=== PATIENT | male | born 1930 | race Hispanic/Latino ===

== ENCOUNTER 2017-07-13 18:03 | Inpatient (IN) | payer MEDICARE, MEDICAID ==
[2017-07-13 18:13] VITALS: BMI 21.2
[2017-07-13] MEDS ORDERED: Sodium Chloride 0.9% 1,000 ML IV STA (18:49)
--- NOTE | 2017-07-13 18:50 | ED PDOC ---
Arrival/HPI - General Historian: Patient - History of Present Illness Time/Duration: Other (see hpi) Context: Home - General Chief Complaint: Altered Mental Status Time Seen by Provider: 07/13/17 18:37 - History of Present Illness Narrative History of Present Illness (Text): 07/13/17 18:50 Morenita Boone is a 86 year old male, with a past medical history of hypertension, vertigo, and cad, presents to the emergency department via EMS. According to EMS, patient was found on the floor with AMS. (Judy Rodriguez) Past Medical History - Provider Review Nursing Documentation Reviewed: Yes - Infectious Disease Hx of Infectious Diseases: None - Tetanus Immunization Tetanus Immunization: Unknown - Cardiac Hx Cardiac Disorders: Yes Hx Hypertension: Yes - Pulmonary Hx Respiratory Disorders: Yes Hx Pneumonia: Yes - Neurological Hx Neurological Disorder: Yes (VERTIGO) Hx Dizziness: Yes - HEENT Hx HEENT Disorder: No - Renal Hx Renal Disorder: Yes Hx Kidney Stones: Yes - Endocrine/Metabolic Hx Endocrine Disorders: No - Hematological/Oncological Hx Blood Disorders: No - Integumentary Hx Dermatological Disorder: No - Musculoskeletal/Rheumatological Hx Musculoskeletal Disorders: Yes Hx Falls: Yes - Gastrointestinal Hx Gastrointestinal Disorders: Yes Hx Gastroesophageal Reflux: Yes - Genitourinary/Gynecological Hx Genitourinary Disorders: No Hx Reproductive Disorders: No - Psychiatric Hx Psychophysiologic Disorder: No Hx Depression: No Hx Emotional Abuse: No Hx Physical Abuse: No Hx Substance Use: No - Past Surgical History Past Surgical History: No Previous - Suicidal Assessment Feels Threatened In Home Enviroment: No Family/Social History - Physician Review Nursing Documentation Reviewed: Yes Family/Social History: Other (noncontributory) Smoking Status: Former Smoker Hx Alcohol Use: No Hx Substance Use: No Hx Substance Use Treatment: No Allergies/Home Meds Allergies/Adverse Reactions: Allergies No Known Allergies Allergy (Verified 07/13/17 18:10) Home Medications: Home Meds Medication Instructions Recorded Confirmed Unobtainable 12/21/15 07/13/17 Review of Systems - Review of Systems Systems not reviewed;Unavailable: Other (see hpi) Physical Exam - Physical Exam Physical Exam Limitations: Altered Mental Status Temperature: Afebrile Blood Pressure: Normal Pulse: Regular Respiratory Rate: Normal Appearance: Positive for: Unkept Pain Distress: None Mental Status: Positive for: Confused - Systems Exam Head: Present: Atraumatic, Normocephalic Pupils: Present: PERRL Extroacular Muscles: Present: EOMI Conjunctiva: Present: Normal Mouth: Present: Moist Mucous Membranes Neck: Present: Normal Range of Motion Respiratory/Chest: Present: Clear to Auscultation, Good Air Exchange. No: Respiratory Distress, Accessory Muscle Use, Wheezes, Retracting, Rhonchi Cardiovascular: Present: Regular Rate and Rhythm, Normal S1, S2. No: Murmurs Abdomen: Present: Normal Bowel Sounds. No: Tenderness, Distention, Peritoneal Signs, Rebound, Guarding Upper Extremity: Present: Normal Inspection, Normal ROM, NORMAL PULSES, Neurovascularly Intact, Capillary Refill < 2s. No: Cyanosis, Edema Lower Extremity: Present: Normal Inspection, Normal ROM. No: Edema Neurological: Present: CN II-XII Intact Skin: Present: Warm, Dry, Normal Color. No: Rashes Psychiatric: Present: Other (AMS) Vital Signs Temp Pulse Resp BP Pulse Ox 07/13/17 21:00 84 20 165/83 H 98 07/13/17 20:05 97.9 F 07/13/17 19:15 91 H 19 147/90 98 Medical Decision Making Re-evaluation Time: 21:02 Reassessment Condition: Re-examined, Improving,but remains with symptoms - Lab Interpretations I have reviewed the lab results: Yes Interpretation: No clinic. lab abnormalty - EKG Interpretation Interpreted by ED Physician: Yes (NSR @ 100bpm. No ST changes) Type: 12 lead EKG Comparison: No previous EKG avail. ED Course and Treatment: 07/13/17 20:58 I spoke with Mr. Isrrael Woody, who is a friend of the patient. He said he talked to patient about 2 weeks ago. He said patient was alert and oriented x 3 at that time. He did not know patient was in ED. He does not know if patient had recent illness or psychiatric problems. He denies recent trauma, or alcohol abuse. Dr. Hanks spoke with Dr. Ovalle regarding patient AMS. Patient will be admitted for further labs, possible further imaging, and monitor current condition (Judy Rodriguez) 07/13/17 23:04 Patient presents via ambulance. Reportedly patient found "laying on ground by neighbor". No family or friends are present with patient upon arrival to the ED. Patient is confused, does not answer questions correctly. No obvious signs of acute trauma. He will move all four extremities. There is NO LAST TIME KNOWN WELL. Spoke with listed Emergency Contact, states he personally has not spoken to patient in 2 weeks, although he states patient is typically alert and conversive. BP is stable. No respiratory distress noted. Afebrile. Lactate unremarkable. Ddx cva, seizure, syncope, arrhythmia, sepsis, metabolic disorder, endocrine disorder. NOT A TPA CANDIDATE NO KNOWN LAST TIME WELL. CT head reviewed. Please note troponin was initially reported as positive. Initial consultations and orders were performed with consideration that this value was positive. At 22:50 it was noted that troponin was adjusted to a normal value. Lab was called to clarify. Nursing slot shift supervisor notified. Patient on exam is in no respiratory distress, does not express discomfort. Admitting physician Dr. Ovalle (covering for hospitalist) notified. (Joslyn Hanks) - Lab Interpretations Lab Results: 07/13/17 19:10 07/13/17 19:10 Lab Results 07/13/17 20:46: Lactate Dehydrogenase 429, Total Creatine Kinase 57, Troponin I < 0.01 07/13/17 20:29: Urine Color Yellow, Urine Appearance Clear, Urine pH 6.0, Ur Specific [place] >= 1.030, Urine Protein Trace H, Urine Glucose (UA) Negative, Urine Ketones 40 H, Urine Blood Trace-intact H, Urine Nitrate Negative, Urine Bilirubin Small H, Urine Urobilinogen 1.0 H, Ur Leukocyte Esterase Negative, Urine RBC 1 - 3, Urine WBC 2 - 5, Ur Epithelial Cells 4 - 5, Urine Bacteria Few 07/13/17 20:27: Urine Opiates Screen Negative, Urine Methadone Screen Negative, Ur Barbiturates Screen Negative, Ur Phencyclidine Scrn Negative, Ur Amphetamines Screen Negative, U Benzodiazepines Scrn Negative, U Oth Cocaine Metabols Negative, U Cannabinoids Screen Negative 07/13/17 20:27: pO2 36, VBG pH 7.35, VBG pCO2 51.0, VBG HCO3 28.2 H, VBG Total CO2 29.8 H, VBG O2 Sat (Calc) 69.8 H, VBG Base Excess 1.7, VBG Potassium 4.8, Glucose 107, Lactate 1.4, FiO2 21.0, Sodium 137.0, Chloride 102.0, Venous Blood Potassium 4.8 07/13/17 19:10: Salicylates < 1 L, Acetaminophen < 10.0 L 07/13/17 19:10: Alcohol, Quantitative < 10 07/13/17 19:10: Sodium 144, Potassium 4.2, Chloride 101, Carbon Dioxide 26, Anion Gap 21 H, BUN 30 H, Creatinine 0.9, Est GFR ( Amer) > 60, Est GFR ( Non-Af Amer) > 60, Random Glucose 101, Calcium 9.7, Phosphorus 3.7, Magnesium 2.6 H, Total Bilirubin 1.1, AST 53, ALT 38, Alkaline Phosphatase 131 H, Total Protein 7.2, Albumin 4.1, Globulin 3.1, Albumin/Globulin Ratio 1.3 07/13/17 19:10: PT 12.7 H, INR 1.11 H, APTT 32.8 07/13/17 19:10: WBC 10.5 D, RBC 5.72, Hgb 17.2, Hct 49.8, MCV 87.1, MCH 30.1, MCHC 34.5, RDW 12.6, Plt Count 308, MPV 10.3, Gran % 74.4 H, Lymph % (Auto) 12.8 L, [place] % (Auto) 11.2 H, Eos % (Auto) 1.4 L, Baso % (Auto) 0.2, Gran # 7.81 H, Lymph # (Auto) 1.3, [place] # (Auto) 1.2 H, Eos # (Auto) 0.2, Baso # (Auto ) 0.02 - RAD Interpretation Narrative RAD Interpretations (Text): 07/13/17 21:03 FINDINGS: Brain: There is dilatation of sulci gyri and ventricles. There is no midline shift. There is decreased attenuation in periventricular white matter. There is a new geographic area of decreased attenuation in the right frontal lobe. 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 There are no focal masses. There are no focal hemorrhages. Buckner-white differentiation is visualized. Ventricles: See above Bones/joints: Bones: Cranial vault is intact. Soft tissues: unremarkable Sinuses: There is no acute sinusitis. Mastoid air cells: Ears and mastoids: Middle ears and mastoids are unremarkable. Orbits: Orbital contents are unremarkable. IMPRESSION: Atrophy and small vessel disease, no bleed; age indeterminate right frontal ischemic change new since the prior study 07/13/17 21:03 CXR: NAD (RodriguezJudy P) Radiology Orders: 07/13/17 18:47 CHEST ONE VIEW [RAD] Stat 07/13/17 18:49 HEAD W/O CONTRAST [CT] Stat - Medication Orders Current Medication Orders: Atorvastatin Calcium (Lipitor) 10 mg PO DIN KATHERINE Heparin Sodium/Sodium Chloride (Heparin 60937 Units/250ml 1/2 Normal Saline) 25 ,000 units in 250 mls @ 7.62 mls/hr IV .Q24H KATHERINE; 12 UNITS/KG/HR PRN Reason: Protocol Sodium Chloride (Sodium Chloride 0.9%) 1,000 mls @ 75 mls/hr IV .[id number] KATHERINE Metoprolol Tartrate (Lopressor) 12.5 mg PO BID KATHERINE Pantoprazole Sodium (Protonix Ec Tab) 40 mg PO 0600 KATHERINE Discontinued Medications Aspirin (Aspirin Supp) 300 mg RC STAT STA Stop: 07/13/17 21:38 Last Admin: 07/13/17 21:41 Dose: 300 mg Sodium Chloride (Sodium Chloride 0.9%) 1,000 mls @ 999 mls/hr IV .Q1H1M STA Stop: 07/13/17 19:49 Last Admin: 07/13/17 19:25 Dose: 999 mls/hr eMAR Start Stop Document 07/13/17 19:25 CNR (Rec: 07/13/17 19:25 CNR [id number]) Intravenous Solution Start Date 07/13/17 Start Time 19:25 Ceftriaxone Sodium (Rocephin 1 Gram Ivpb) 1 gm in 100 mls @ 200 mls/hr IVPB ONCE STA PRN Reason: Protocol Stop: 07/13/17 21:21 Last Admin: 07/13/17 20:57 Dose: 200 mls/hr eMAR Start Stop Document 07/13/17 20:57 CNR (Rec: 07/13/17 20:59 CNR [id number]) Intravenous Solution Start Date 07/13/17 Start Time 20:58 End Date 07/13/17 End time 21:28 Total Infusion Time 30 Disposition/Present on Arrival - Present on Arrival Any Indicators Present on Arrival: No History of DVT/PE: No History of Uncontrolled Diabetes: No Urinary Catheter: No History of Decub. Ulcer: No History Surgical Site Infection Following: None - Disposition Have Diagnosis and Disposition been Completed?: Yes Disposition Time: 21:03 Patient Plan: Admission - Disposition Diagnosis: Altered mental status Disposition: HOSPITALIZED Patient Problems: Current Active Problems Problem Status Onset Altered mental status Acute Condition: STABLE
[2017-07-13 19:21] LABS: BASO # 0.02 K/mm3 (0.0-2.0); BASO % 0.2 % (0.0-3.0); EOS # 0.2 (0.0-0.7); EOS % 1.4 % (1.5-5.0); GRAN # 7.81 (1.4-6.5); GRAN % 74.4 % (50.0-68.0); HEMOGLOBIN 17.2 g/dL (14.0-18.0); LYMPH # 1.3 (1.2-3.4); LYMPH % 12.8 % (22.0-35.0); MEAN CELL VOLUME 87.1 fl (80.0-105.0); MEAN CORPUSCULAR HEMOGLOBIN 30.1 pg (25.0-35.0); MEAN CORPUSCULAR HGB CONC 34.5 g/dl (31.0-37.0); MEAN PLATELET VOLUME 10.3 fl (7.0-11.0); MONO # 1.2 (0.1-0.6); MONO % 11.2 % (1.0-6.0); RBC 5.72 10^6/uL (3.5-6.1); RED CELL DISTRIBUTION WIDTH 12.6 % (11.5-14.5); WHITE BLOOD COUNT 10.5 10^3/ul (4.5-11.0)
[2017-07-13 19:33] LABS: ACETAMINOPHEN < 10.0 ug/ml (10.0-20.0); SALICYLATE < 1 mg/dL (2.0-20.0)
[2017-07-13 19:34] LABS: ALB/GLOB RATIO 1.3 (1.1-1.8); ALBUMIN 4.1 g/dL (3.0-4.8); ALT/SGPT 38 U/L (7-56); AST/SGOT 53 U/L (17-59); BLOOD UREA NITROGEN 30 mg/dL (7-21); CALCIUM 9.7 mg/dL (8.4-10.5); GFR AFRICAN-AMERICAN > 60; GFR NON-AFRICAN AMERICAN > 60; INR 1.11 (0.93-1.08); PARTIAL THROMBOPLASTIN TIME 32.8 Seconds (25.1-36.5); PROTHROMBIN TIME 12.7 SECONDS (9.4-12.5)
--- NOTE | 2017-07-13 20:04 | CT ---
EXAM: CT Head Without Intravenous Contrast EXAM DATE/TIME: 07/13/2017 6:49 PM CLINICAL HISTORY: 86 years old, male; Signs and symptoms; Altered mental status/memory loss; Additional info: AMS TECHNIQUE: Axial computed tomography images of the head/brain without intravenous contrast. All CT scans at this facility use one or more dose reduction techniques, viz.: automated exposure control; ma/kV adjustment per patient size (including targeted exams where dose is matched to indication; i.e. head); or iterative reconstruction technique. Coronal and sagittal reformatted images were created and reviewed. COMPARISON: CT - HEAD W/O CONTRAST 2015-12-21 16:18 FINDINGS: Brain: There is dilatation of sulci gyri and ventricles. There is no midline shift. There is decreased attenuation in periventricular white matter. There is a new geographic area of decreased attenuation in the right frontal lobe. 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 There are no focal masses. There are no focal hemorrhages. Buckner-white differentiation is visualized. Ventricles: See above Bones/joints: Bones: Cranial vault is intact. Soft tissues: unremarkable Sinuses: There is no acute sinusitis. Mastoid air cells: Ears and mastoids: Middle ears and mastoids are unremarkable. Orbits: Orbital contents are unremarkable. IMPRESSION: Atrophy and small vessel disease, no bleed; age indeterminate right frontal ischemic change new since the prior study
[2017-07-13 20:33] LABS: VENOUS BLOOD GAS BASE EXCESS 1.7 mmol/L (0.0-2.0); VENOUS BLOOD GAS PO2 36 mm/Hg (30-55); VENOUS BLOOD PH 7.35 (7.32-7.43)
[2017-07-13 20:37] LABS: URINE BILIRUBIN SMALL (NEGATIVE); URINE BLOOD TRACE-INTACT (NEGATIVE); URINE GLUCOSE (UA) NEGATIVE (NEGATIVE); URINE LEUKOCYTE ESTERASE NEGATIVE Leu/uL (NEGATIVE); URINE PROTEIN TRACE mg/dL (<30 mg/dL)
[2017-07-13 20:49] LABS: URINE APPEARANCE CLEAR (CLEAR); URINE COLOR YELLOW (YELLOW)
[2017-07-13 20:51] LABS: URINE BACTERIA FEW (NEG)
[2017-07-13] MEDS ORDERED: cefTRIAXone 1 gm 1 GM/100 ML BAG IVPB STA (20:52)
[2017-07-13 20:54] LABS: OPIATES, UR NEGATIVE (NEGATIVE); PHENCYCLIDINE, UR NEGATIVE (NEGATIVE)
[2017-07-13 20:55] LABS: BARBITURATES, UR NEGATIVE (NEGATIVE); BENZODIAZEPINES, UR NEGATIVE (NEGATIVE)
--- NOTE | 2017-07-13 21:07 | CARD ---
APPROVED REPORT EKG Measurement Heart [id number] <Conclusion> Normal sinus rhythm Left anterior fascicular block Left ventricular hypertrophy with repolarization abnormality Abnormal ECG
[2017-07-13 21:39] LABS: TROPONIN I < 0.01 ng/mL
[2017-07-13] MEDS ORDERED: Heparin25000 units/250ml 1/2NS 25,000 UNITS/250 ML BAG IV SCH (21:45)
--- NOTE | 2017-07-13 23:05 | CP.PCM.HP ---
<Vivian Lozano - Last Filed: 07/13/17 23:34> History of Present Illness - History of Present Illness History of Present Illness: PGY-2 H&P for Hospitalist service 86 year old male, with a PMH of hypertension, vertigo, and cad, presents to the emergency department via EMS for AMS. Patient is altered and unable to answer questions, history taken from chart. According to EMS, patient was found on the floor with AMS. ED spoke with Mr. Isrrael Woody, who is listed as patient next of kin from previous admission and is a friend of the patient. He states that he talked to patient about 2 weeks ago, at that time patient was alert and oriented x 3. He does not know if patient had recent illness or psychiatric problems. Per previous records patient was alert and orient and spoke bermudian. Unable to obtain ROS due to patient AMS PMH: hypertension, vertigo, and cad PSH: unknown social history: unknown allergy: NKDA home meds: unobtainable Present on Admission - Present on Admission Any Indicators Present on Admission: No Review of Systems - Review of Systems Systems not reviewed;Unavailable: Altered Mental Status Past Patient History - Infectious Disease Hx of Infectious Diseases: None - Tetanus Immunizations Tetanus Immunization: Unknown - Past Social History Smoking Status: Former Smoker - CARDIAC Hx Cardiac Disorders: Yes Hx Hypertension: Yes - PULMONARY Hx Respiratory Disorders: Yes Hx Pneumonia: Yes - NEUROLOGICAL Hx Neurological Disorder: Yes (VERTIGO) Hx Dizziness: Yes - HEENT Hx HEENT Problems: No - RENAL Hx Chronic Kidney Disease: Yes Hx Kidney Stones: Yes - ENDOCRINE/METABOLIC Hx Endocrine Disorders: No - HEMATOLOGICAL/ONCOLOGICAL Hx Blood Disorders: No - INTEGUMENTARY Hx Dermatological Problems: No - MUSCULOSKELETAL/RHEUMATOLOGICAL Hx Musculoskeletal Disorders: Yes Hx Falls: Yes - GASTROINTESTINAL Hx Gastrointestinal Disorders: Yes Hx Gastroesophageal Reflux: Yes - GENITOURINARY/GYNECOLOGICAL Hx Genitourinary Disorders: No Hx Reproductive Disorders: No - PSYCHIATRIC Hx Psychophysiologic Disorder: No Hx Depression: No Hx Emotional Abuse: No Hx Physical Abuse: No Hx Substance Use: No - SURGICAL HISTORY Hx Surgeries: No (pt denies) Meds Allergies/Adverse Reactions: Allergies Allergy/AdvReac Type Severity Reaction Status Date / Time No Known Allergies Allergy Verified 07/13/17 18:10 Physical Exam - Constitutional Appears: Unkempt, Confused - Head Exam Head Exam: ATRAUMATIC, NORMOCEPHALIC - Eye Exam Eye Exam: Normal appearance - ENT Exam ENT Exam: Mucous Membranes Dry - Respiratory Exam Respiratory Exam: Clear to Auscultation Bilateral, NORMAL BREATHING PATTERN. absent: Rhonchi, Wheezes, Respiratory Distress - Cardiovascular Exam Cardiovascular Exam: REGULAR RHYTHM, +S1, +S2. absent: Tachycardia, Systolic Murmur - GI/Abdominal Exam GI & Abdominal Exam: Normal Bowel Sounds, Soft. absent: Diminished Bowel Sounds , Distended, Firm, Guarding, Tenderness - Extremities Exam Extremities exam: Positive for: normal inspection. Negative for: pedal edema, tenderness - Expanded Neurological Exam Expanded Coma Scale Eye Opening: SPONTANEOUS Coma Scale Motor Response: Localizes to Pain Coma Scale Verbal: Inappropriate Coma Scale Total: 12 - Skin Skin Exam: Dry, Intact, Normal Color, Warm Results - Vital Signs Recent Vital Signs: Last Vital Signs Temp 97.9 F 07/13/17 20:05 Pulse 84 07/13/17 21:00 Resp 20 07/13/17 21:00 BP 165/83 H 07/13/17 21:00 Pulse Ox 98 07/13/17 21:00 - Labs Result Diagrams: 07/13/17 19:10 07/13/17 19:10 Labs: Laboratory Results - last 24 hr 07/13/17 07/13/17 07/13/17 19:10 19:10 19:10 WBC 10.5 D RBC 5.72 Hgb 17.2 Hct 49.8 MCV 87.1 MCH 30.1 MCHC 34.5 RDW 12.6 Plt Count 308 MPV 10.3 Gran % 74.4 H Lymph % (Auto) 12.8 L [place] % (Auto) 11.2 H Eos % (Auto) 1.4 L Baso % (Auto) 0.2 Gran # 7.81 H Lymph # (Auto) 1.3 [place] # (Auto) 1.2 H Eos # (Auto) 0.2 Baso # (Auto) 0.02 PT 12.7 H INR 1.11 H APTT 32.8 pO2 VBG pH VBG pCO2 VBG HCO3 VBG Total CO2 VBG O2 Sat (Calc) VBG Base Excess VBG Potassium Glucose Lactate FiO2 Sodium 144 Potassium 4.2 Chloride 101 Carbon Dioxide 26 Anion Gap 21 H BUN 30 H Creatinine 0.9 Est GFR ( Amer) > 60 Est GFR (Non-Af Amer) > 60 Random Glucose 101 Calcium 9.7 Phosphorus 3.7 Magnesium 2.6 H Total Bilirubin 1.1 AST 53 ALT 38 Alkaline Phosphatase 131 H Lactate Dehydrogenase Total Creatine Kinase Troponin I Total Protein 7.2 Albumin 4.1 Globulin 3.1 Albumin/Globulin Ratio 1.3 Venous Blood Potassium Urine Color Urine Appearance Urine pH Ur Specific [place] Urine Protein Urine Glucose (UA) Urine Ketones Urine Blood Urine Nitrate Urine Bilirubin Urine Urobilinogen Ur Leukocyte Esterase Urine RBC Urine WBC Ur Epithelial Cells Urine Bacteria Salicylates Urine Opiates Screen Urine Methadone Screen Acetaminophen Ur Barbiturates Screen Ur Phencyclidine Scrn Ur Amphetamines Screen U Benzodiazepines Scrn U Oth Cocaine Metabols U Cannabinoids Screen Alcohol, Quantitative 07/13/17 07/13/17 07/13/17 19:10 19:10 20:27 WBC RBC Hgb Hct MCV MCH MCHC RDW Plt Count MPV Gran % Lymph % (Auto) [place] % (Auto) Eos % (Auto) Baso % (Auto) Gran # Lymph # (Auto) [place] # (Auto) Eos # (Auto) Baso # (Auto) PT INR APTT pO2 36 VBG pH 7.35 VBG pCO2 51.0 VBG HCO3 28.2 H VBG Total CO2 29.8 H VBG O2 Sat (Calc) 69.8 H VBG Base Excess 1.7 VBG Potassium 4.8 Glucose 107 Lactate 1.4 FiO2 21.0 Sodium 137.0 Potassium Chloride 102.0 Carbon Dioxide Anion Gap BUN Creatinine Est GFR ( Amer) Est GFR (Non-Af Amer) Random Glucose Calcium Phosphorus Magnesium Total Bilirubin AST ALT Alkaline Phosphatase Lactate Dehydrogenase Total Creatine Kinase Troponin I Total Protein Albumin Globulin Albumin/Globulin Ratio Venous Blood Potassium 4.8 Urine Color Urine Appearance Urine pH Ur Specific [place] Urine Protein Urine Glucose (UA) Urine Ketones Urine Blood Urine Nitrate Urine Bilirubin Urine Urobilinogen Ur Leukocyte Esterase Urine RBC Urine WBC Ur Epithelial Cells Urine Bacteria Salicylates < 1 L Urine Opiates Screen Urine Methadone Screen Acetaminophen < 10.0 L Ur Barbiturates Screen Ur Phencyclidine Scrn Ur Amphetamines Screen U Benzodiazepines Scrn U Oth Cocaine Metabols U Cannabinoids Screen Alcohol, Quantitative < 10 07/13/17 07/13/17 07/13/17 20:27 20:29 20:46 WBC RBC Hgb Hct MCV MCH MCHC RDW Plt Count MPV Gran % Lymph % (Auto) [place] % (Auto) Eos % (Auto) Baso % (Auto) Gran # Lymph # (Auto) [place] # (Auto) Eos # (Auto) Baso # (Auto) PT INR APTT pO2 VBG pH VBG pCO2 VBG HCO3 VBG Total CO2 VBG O2 Sat (Calc) VBG Base Excess VBG Potassium Glucose Lactate FiO2 Sodium Potassium Chloride Carbon Dioxide Anion Gap BUN Creatinine Est GFR ( Amer) Est GFR (Non-Af Amer) Random Glucose Calcium Phosphorus Magnesium Total Bilirubin AST ALT Alkaline Phosphatase Lactate Dehydrogenase 429 Total Creatine Kinase 57 Troponin I < 0.01 Total Protein Albumin Globulin Albumin/Globulin Ratio Venous Blood Potassium Urine Color Yellow Urine Appearance Clear Urine pH 6.0 Ur Specific [place] >= 1.030 Urine Protein Trace H Urine Glucose (UA) Negative Urine Ketones 40 H Urine Blood Trace-intact H Urine Nitrate Negative Urine Bilirubin Small H Urine Urobilinogen 1.0 H Ur Leukocyte Esterase Negative Urine RBC 1 - 3 Urine WBC 2 - 5 Ur Epithelial Cells 4 - 5 Urine Bacteria Few Salicylates Urine Opiates Screen Negative Urine Methadone Screen Negative Acetaminophen Ur Barbiturates Screen Negative Ur Phencyclidine Scrn Negative Ur Amphetamines Screen Negative U Benzodiazepines Scrn Negative U Oth Cocaine Metabols Negative U Cannabinoids Screen Negative Alcohol, Quantitative Assessment & Plan - Assessment and Plan (Free Text) Assessment: 86 year old male, with a PMH of hypertension, vertigo, and cad, presents to the emergency department via EMS for AMS. Plan: 1. AMS - differential diagnoses includes but not limited to dilirum, stroke, seizure, cardiac, infection, metabolic - CT head showed Atrophy and small vessel disease, no bleed; age indeterminate, right frontal ischemic change new since the prior study - TSH, free T4, T3 - RPR - ammonia - blood and urine cultures - will order CK to r/o rhabdomyolysis - will order bedside swallow evaluation before starting diet 2. dehydration - increased BUN, CBC appears hemo concentrated - received 1 L NS in ED - will start NS @75 cc DVT ppx- heparin GI ppx- protonix <Vasquez,Mateo Q - Last Filed: 07/14/17 02:31> Results - Vital Signs Recent Vital Signs: Last Vital Signs Temp 98.2 F 07/13/17 23:37 Pulse 69 07/13/17 23:37 Resp 18 07/13/17 23:37 BP 155/79 H 07/13/17 23:37 Pulse Ox 98 07/13/17 23:37 - Labs Result Diagrams: 07/13/17 19:10 07/13/17 19:10 Labs: Laboratory Results - last 24 hr 07/14/17 01:30 Ammonia < 9 L Attending/Attestation - Attestation I have personally seen and examined this patient.: Yes I have fully participated in the care of the patient.: Yes I have reviewed all pertinent clinical information: Yes
[2017-07-13] MEDS: Sodium Chloride 0.9% 1,000 ML IV SCH (23:15)
[2017-07-14 03:21] LABS: BASO # 0.03 K/mm3 (0.0-2.0); BASO % 0.3 % (0.0-3.0); EOS # 0.3 (0.0-0.7); EOS % 3.5 % (1.5-5.0); GRAN # 5.91 (1.4-6.5); GRAN % 64.3 % (50.0-68.0); LYMPH # 1.5 (1.2-3.4); LYMPH % 16.8 % (22.0-35.0); MEAN CELL VOLUME 86.7 fl (80.0-105.0); MEAN CORPUSCULAR HEMOGLOBIN 29.8 pg (25.0-35.0); MEAN CORPUSCULAR HGB CONC 34.4 g/dl (31.0-37.0); MEAN PLATELET VOLUME 9.5 fl (7.0-11.0); MONO # 1.4 (0.1-0.6); MONO % 15.1 % (1.0-6.0); RBC 5.1 10^6/uL (3.5-6.1); RED CELL DISTRIBUTION WIDTH 12.6 % (11.5-14.5); WHITE BLOOD COUNT 9.2 10^3/ul (4.5-11.0)
[2017-07-14 03:28] LABS: HEMOGLOBIN 15.2 g/dL (14.0-18.0)
[2017-07-14 03:49] LABS: LDL CHOLESTEROL 79 mg/dL (0-129)
[2017-07-14 03:50] LABS: ALB/GLOB RATIO 1.2 (1.1-1.8); ALBUMIN 3.2 g/dL (3.0-4.8); ALT/SGPT 44 U/L (7-56); AST/SGOT 45 U/L (17-59); BLOOD UREA NITROGEN 26 mg/dL (7-21); CALCIUM 8.7 mg/dL (8.4-10.5); GFR AFRICAN-AMERICAN > 60; GFR NON-AFRICAN AMERICAN > 60; HDL CHOLESTEROL 39 mg/dL (29-60); TROPONIN I < 0.01 ng/mL
[2017-07-14 03:53] LABS: FREE T4 1.24 ng/dL (0.78-2.19)
[2017-07-14 04:07] LABS: T3 0.83 ng/mL (0.97-1.69)
[2017-07-14] MEDS ORDERED: Pantoprazole 40 mg EC Tab PO SCH (06:00)
--- NOTE | 2017-07-14 07:34 | RAD ---
PROCEDURE: CHEST RADIOGRAPH, 1 VIEW HISTORY: Sepsis Patient COMPARISON: 11/29/2014 FINDINGS: LUNGS: Clear. PLEURA: No pneumothorax or pleural fluid seen. CARDIOVASCULAR: Mild aortic tortuosity. The heart is normal in size OSSEOUS STRUCTURES: No significant abnormalities. VISUALIZED UPPER ABDOMEN: Normal. OTHER FINDINGS: None. IMPRESSION: No active disease.
--- NOTE | 2017-07-14 08:39 | CP.PCM.CON ---
History of Present Illness - History of Present Illness History of Present Illness: Neurology Consult Note for Dr. Alfred Reason for consult: AMS Please note patient is a poor historian and altered. History as per chart. I attempted to speak to patient with a Taiwanese salesperson books but he did not respond/ cooperate and patient's friend/next of kin visited the patient and said he was altered, not at baseline, and uncommunicative 86yo male PMHx HTN, CAD, and vertigo was BIBA for AMS. As per ER note patient was found on the floor and altered. ED spoke with Mr. Isrrael Woody, who is listed as patient next of kin from previous admission and is a friend of the patient. He states that he talked to patient about 2 weeks ago, at that time patient was alert and oriented x 3. He does not know if patient had recent illness or psychiatric problems. Per previous records patient was alert and orient and spoke indonesian. ROS unobtainable secondary to patient condition PMHx: hypertension, vertigo, and cad PSurgHx: unobtainable SocHx: unobtainable FamHx: unobtainable ALL: NKDA Meds: unobtainable Review of Systems - Review of Systems Systems not reviewed;Unavailable: Altered Mental Status Past Patient History - Infectious Disease Hx of Infectious Diseases: None - Tetanus Immunizations Tetanus Immunization: Unknown - Past Social History Smoking Status: Never Smoked - CARDIAC Hx Cardiac Disorders: Yes Hx Hypertension: Yes - PULMONARY Hx Respiratory Disorders: Yes Hx Pneumonia: Yes - NEUROLOGICAL Hx Neurological Disorder: Yes (VERTIGO) Hx Dizziness: Yes - HEENT Hx HEENT Problems: No - RENAL Hx Chronic Kidney Disease: Yes Hx Kidney Stones: Yes - ENDOCRINE/METABOLIC Hx Endocrine Disorders: No - HEMATOLOGICAL/ONCOLOGICAL Hx Blood Disorders: No - INTEGUMENTARY Hx Dermatological Problems: No - MUSCULOSKELETAL/RHEUMATOLOGICAL Hx Falls: Yes - GASTROINTESTINAL Hx Gastrointestinal Disorders: Yes Hx Gastroesophageal Reflux: Yes - GENITOURINARY/GYNECOLOGICAL Hx Genitourinary Disorders: No - PSYCHIATRIC Hx Psychophysiologic Disorder: No Hx Depression: No Hx Emotional Abuse: No Hx Physical Abuse: No Hx Substance Use: No - SURGICAL HISTORY Hx Surgeries: No (pt denies) Meds Allergies/Adverse Reactions: Allergies Allergy/AdvReac Type Severity Reaction Status Date / Time No Known Allergies Allergy Verified 07/13/17 18:10 - Medications Medications: Current Medications Heparin Sodium (Porcine) (Heparin) 5,000 units SC Q12 [facility] PRN Reason: Protocol Sodium Chloride (Sodium Chloride 0.9%) 1,000 mls @ 75 mls/hr IV .[id number] [facility] Last Admin: 07/13/17 23:15 Dose: 75 mls/hr Pantoprazole Sodium (Protonix Ec Tab) 40 mg PO 0600 [facility] Last Admin: 07/14/17 06:36 Dose: 40 mg Physical Exam - Constitutional Appears: No Acute Distress, Unkempt, Confused Additional comments: Physical exam limited as patient was uncooperative - Head Exam Head Exam: ATRAUMATIC, NORMOCEPHALIC - Eye Exam Eye Exam: Normal appearance, PERRL. absent: Conjunctival injection, Scleral icterus - ENT Exam ENT Exam: Mucous Membranes Dry - Respiratory Exam Respiratory Exam: NORMAL BREATHING PATTERN. absent: Accessory Muscle Use, Respiratory Distress - Cardiovascular Exam Cardiovascular Exam: REGULAR RHYTHM, +S1, +S2 - Extremities Exam Extremities exam: Positive for: normal inspection. Negative for: pedal edema - Neurological Exam Neurological exam: Alert - Expanded Neurological Exam Expanded Neurological exam: Inattentive, Protecting the Airway Coma Scale Eye Opening: SPONTANEOUS Coma Scale Motor Response: Localizes to Pain Coma Scale Verbal: Inappropriate Coma Scale Total: 12 - Psychiatric Exam Psychiatric exam: Flat Affect - Skin Skin Exam: Dry, Intact Results - Vital Signs Recent Vital Signs: Last Vital Signs Temp 97.8 F 07/14/17 06:00 Pulse 75 07/14/17 06:00 Resp 19 07/14/17 06:00 BP 100/63 07/14/17 06:00 Pulse Ox 98 07/13/17 23:37 - Labs Result Diagrams: 07/14/17 03:08 07/14/17 03:08 Labs: Laboratory Results - last 24 hr 07/14/17 07/14/17 07/14/17 01:30 03:08 03:08 WBC RBC Hgb Hct MCV MCH MCHC RDW Plt Count MPV Gran % Lymph % (Auto) [place] % (Auto) Eos % (Auto) Baso % (Auto) Gran # Lymph # (Auto) [place] # (Auto) Eos # (Auto) Baso # (Auto) Sodium 144 Potassium 3.8 Chloride 108 H Carbon Dioxide 23 Anion Gap 17 BUN 26 H Creatinine 0.8 Est GFR ( Amer) > 60 Est GFR (Non-Af Amer) > 60 Random Glucose 88 Calcium 8.7 Total Bilirubin 0.8 AST 45 ALT 44 Alkaline Phosphatase 109 Ammonia < 9 L Troponin I < 0.01 Total Protein 5.9 Albumin 3.2 Globulin 2.7 Albumin/Globulin Ratio 1.2 Triglycerides 117 Cholesterol 143 LDL Cholesterol Direct 79 HDL Cholesterol 39 Free T4 1.24 Total T3 0.83 L TSH 3rd Generation 5.15 H 07/14/17 03:08 WBC 9.2 RBC 5.10 Hgb 15.2 D Hct 44.2 MCV 86.7 MCH 29.8 MCHC 34.4 RDW 12.6 Plt Count 233 MPV 9.5 Gran % 64.3 Lymph % (Auto) 16.8 L [place] % (Auto) 15.1 H Eos % (Auto) 3.5 Baso % (Auto) 0.3 Gran # 5.91 Lymph # (Auto) 1.5 [place] # (Auto) 1.4 H Eos # (Auto) 0.3 Baso # (Auto) 0.03 Sodium Potassium Chloride Carbon Dioxide Anion Gap BUN Creatinine Est GFR ( Amer) Est GFR (Non-Af Amer) Random Glucose Calcium Total Bilirubin AST ALT Alkaline Phosphatase Ammonia Troponin I Total Protein Albumin Globulin Albumin/Globulin Ratio Triglycerides Cholesterol LDL Cholesterol Direct HDL Cholesterol Free T4 Total T3 TSH 3rd Generation Assessment & Plan - Assessment and Plan (Free Text) Assessment: 86yo male PMHx HTN, CAD, and vertigo was BIBA for AMS Plan: -Head CT on admission: atrophy and small vessel disease, no bleed; age indeterminate R frontal ischemic change new since prior study -Head CT 12/21/15: no acute intracranial hemorrhage. 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 Marked dilatation 3rd and lateral ventricles with normal caliber 4th ventricle. Rule out central volume loss vs chronic compensated obstructive hydrocephalus. NPH could be considered only if the clinical triad of dementia, ataxia, and incontinence present. -f/u MRI -f/u EEG -f/u Echo -RPR nonreactive -start patient on Keppra 500mg iv q12 and ASA 81mg qd -Patient had an EEG in 03/2014 which was unremarkable -Speech/Swallow eval and treat -PT/OT -GI and DVT ppx and NPO until patient passes swallow eval -Neuro check q4 -Aspiration/Seizure/Fall risk precautions in place -Continue medical management Neuro will continue to follow Discussed with Dr. Tima Moses PGY2
[2017-07-14] MEDS ORDERED: levETIRAcetam 500 MG in Sodium Chloride 0.9% 100 ML IV SCH (10:08)
--- NOTE | 2017-07-14 12:11 | CP.PCM.CON ---
History of Present Illness - History of Present Illness History of Present Illness: Awake, lying in bed, denies chest pain, denies shortness of breath Reason for consultation: Cardiac evaluation, altered mental status, hypertension ,coronary artery disease,chronic vertigo Brief history of present illness: An 86 year old male who was brought by EMS due to altered mental status. History of hypertension,coronary artery disease, chronic vertigo,atrial flutter, AAA, nephrolithiasis, syncopal episode, history of fall, GERD. Seen and examined by me and Dr. Crump Review of Systems - Constitutional Constitutional: As Per HPI Additional comments: patient unable to give information, history taken from chart Past Patient History - Infectious Disease Hx of Infectious Diseases: None - Tetanus Immunizations Tetanus Immunization: Unknown - Past Social History Smoking Status: Never Smoked - CARDIAC Hx Cardiac Disorders: Yes Hx Hypertension: Yes - PULMONARY Hx Respiratory Disorders: Yes Hx Pneumonia: Yes - NEUROLOGICAL Hx Neurological Disorder: Yes (VERTIGO) Hx Dizziness: Yes - HEENT Hx HEENT Problems: No - RENAL Hx Chronic Kidney Disease: Yes Hx Kidney Stones: Yes - ENDOCRINE/METABOLIC Hx Endocrine Disorders: No - HEMATOLOGICAL/ONCOLOGICAL Hx Blood Disorders: No - INTEGUMENTARY Hx Dermatological Problems: No - MUSCULOSKELETAL/RHEUMATOLOGICAL Hx Falls: Yes - GASTROINTESTINAL Hx Gastrointestinal Disorders: Yes Hx Gastroesophageal Reflux: Yes - GENITOURINARY/GYNECOLOGICAL Hx Genitourinary Disorders: No - PSYCHIATRIC Hx Psychophysiologic Disorder: No Hx Depression: No Hx Emotional Abuse: No Hx Physical Abuse: No Hx Substance Use: No - SURGICAL HISTORY Hx Surgeries: No (pt denies) Meds Allergies/Adverse Reactions: Allergies Allergy/AdvReac Type Severity Reaction Status Date / Time No Known Allergies Allergy Verified 07/13/17 18:10 - Medications Medications: Current Medications Aspirin (Aspirin Chewable) 81 mg PO DAILY [facility] Heparin Sodium (Porcine) (Heparin) 5,000 units SC Q12 [facility] PRN Reason: Protocol Last Admin: 07/14/17 09:45 Dose: 5,000 units Sodium Chloride (Sodium Chloride 0.9%) 1,000 mls @ 75 mls/hr IV .[id number] [facility] Last Admin: 07/13/17 23:15 Dose: 75 mls/hr Levetiracetam 500 mg/ Sodium (Chloride) 105 mls @ 460 mls/hr IV Q12 [facility] Pantoprazole Sodium (Protonix Ec Tab) 40 mg PO 0600 [facility] Last Admin: 07/14/17 06:36 Dose: 40 mg Physical Exam - Constitutional Appears: No Acute Distress - Eye Exam Eye Exam: Normal appearance - ENT Exam ENT Exam: Mucous Membranes Moist - Respiratory Exam Respiratory Exam: Clear to Auscultation Bilateral, NORMAL BREATHING PATTERN - Cardiovascular Exam Cardiovascular Exam: +S1, +S2 - GI/Abdominal Exam GI & Abdominal Exam: Normal Bowel Sounds, Soft - Neurological Exam Neurological exam: Alert Additional comments: confuse - Psychiatric Exam Psychiatric exam: Normal Affect, Normal Mood - Skin Skin Exam: Intact, Normal Color, Warm Results - Vital Signs Recent Vital Signs: Last Vital Signs Temp 97.8 F 07/14/17 06:00 Pulse 75 07/14/17 06:00 Resp 19 07/14/17 06:00 BP 100/63 07/14/17 06:00 Pulse Ox 98 07/13/17 23:37 - Labs Result Diagrams: 07/14/17 03:08 07/14/17 03:08 Labs: Laboratory Results - last 24 hr 07/14/17 07/14/17 07/14/17 01:30 03:08 03:08 WBC RBC Hgb Hct MCV MCH MCHC RDW Plt Count MPV Gran % Lymph % (Auto) [place] % (Auto) Eos % (Auto) Baso % (Auto) Gran # Lymph # (Auto) [place] # (Auto) Eos # (Auto) Baso # (Auto) Sodium 144 Potassium 3.8 Chloride 108 H Carbon Dioxide 23 Anion Gap 17 BUN 26 H Creatinine 0.8 Est GFR ( Amer) > 60 Est GFR (Non-Af Amer) > 60 Random Glucose 88 Calcium 8.7 Total Bilirubin 0.8 AST 45 ALT 44 Alkaline Phosphatase 109 Ammonia < 9 L Troponin I < 0.01 Total Protein 5.9 Albumin 3.2 Globulin 2.7 Albumin/Globulin Ratio 1.2 Triglycerides 117 Cholesterol 143 LDL Cholesterol Direct 79 HDL Cholesterol 39 Free T4 1.24 Total T3 0.83 L TSH 3rd Generation 5.15 H 07/14/17 07/14/17 03:08 10:00 WBC 9.2 RBC 5.10 Hgb 15.2 D Hct 44.2 MCV 86.7 MCH 29.8 MCHC 34.4 RDW 12.6 Plt Count 233 MPV 9.5 Gran % 64.3 Lymph % (Auto) 16.8 L [place] % (Auto) 15.1 H Eos % (Auto) 3.5 Baso % (Auto) 0.3 Gran # 5.91 Lymph # (Auto) 1.5 [place] # (Auto) 1.4 H Eos # (Auto) 0.3 Baso # (Auto) 0.03 Sodium Potassium Chloride Carbon Dioxide Anion Gap BUN Creatinine Est GFR ( Amer) Est GFR (Non-Af Amer) Random Glucose Calcium Total Bilirubin AST ALT Alkaline Phosphatase Ammonia Troponin I 0.01 Total Protein Albumin Globulin Albumin/Globulin Ratio Triglycerides Cholesterol LDL Cholesterol Direct HDL Cholesterol Free T4 Total T3 TSH 3rd Generation Assessment & Plan - Assessment and Plan (Free Text) Assessment: An 86 year old male who was brought by EMS due to altered mental status. History of hypertension,coronary artery disease,chronic vertigo,atrial flutter, AAA, nephrolithiasis, syncopal episode, history of fall, GERD. Review of previous cardiac work up: 04/22/14- ECHO- normal LVEF 67%, mild MR/TR 04/22/14- Carotid duplex Study- bilateral proximal ICA 40-59% stenosis Plan: Altered mental status CT of head, atrophy,small vessel disease, no bleeding, right frontal ischemic change, new compared to previous study. Heart rate and blood pressure stable Troponin levels normal Stable cardiac status On ASA 81 mg daily Will repeat ECHO to evaluate LV function TSH elevated 5.15. Will start Synthroid 25 mcg daily Will start low dose Lopressor Continue current treatment Continue current medications Will follow up Plan and treatment discussed with Dr. Crump Thank you for giving us the opportunity to take care of Mr. Carter Alfie Boone - Date & Time Date: 07/14/17 Time: 07:10
--- NOTE | 2017-07-14 14:47 | CP.PCM.PN ---
<Kylah Griffiths - Last Filed: 07/14/17 14:44> Subjective - Date & Time of Evaluation Date of Evaluation: 07/14/17 Time of Evaluation: 10:00 - Subjective Subjective: Kylah Griffiths, PGY1, Progress Note for Dr Obando: Patient seen and examined at bedside. No acute event overnight. Pt awake, oriented to self only. Pt keeps repeating words. Does not follow commands, speaks incoherent words at times. Spoke to his friend, Harinder, over the phone. He states that he spoke to patient a month ago, when he was fine, independent with his ADLs. Pt lives by himself, goes to [facility] in the morning. He recalls that pt appeared "confused for a second while talking like did not his friend's name." Pt used to go to Dr Shireen De Souza few years ago until he retired a few years ago. Pt has a son in [place]. ROS unobtainable due to AMS Objective - Vital Signs/Intake and Output Vital Signs (last 24 hours): Temp Pulse Resp BP Pulse Ox 97.7 F 70 20 150/75 98 07/14/17 12:00 07/14/17 12:00 07/14/17 12:00 07/14/17 12:00 07/13/17 23:37 Intake and Output: 07/14/17 07/14/17 06:59 18:59 Intake Total 0 Balance 0 - Medications Medications: Current Medications Aspirin (Aspirin Chewable) 81 mg PO DAILY [facility] Heparin Sodium (Porcine) (Heparin) 5,000 units SC Q12 [facility] PRN Reason: Protocol Last Admin: 07/14/17 09:45 Dose: 5,000 units Sodium Chloride (Sodium Chloride 0.9%) 1,000 mls @ 75 mls/hr IV .[id number] [facility] Last Admin: 07/13/17 23:15 Dose: 75 mls/hr Levetiracetam 500 mg/ Sodium (Chloride) 105 mls @ 460 mls/hr IV Q12 [facility] Levothyroxine Sodium (Synthroid) 25 mcg PO 0600 [facility] Metoprolol Tartrate (Lopressor) 25 mg PO BID [facility] Pantoprazole Sodium (Protonix Ec Tab) 40 mg PO 0600 [facility] Last Admin: 07/14/17 06:36 Dose: 40 mg - Labs Labs: 07/14/17 03:08 07/14/17 03:08 PT 12.7 SECONDS (9.4-12.5) H 07/13/17 19:10 INR 1.11 (0.93-1.08) H 07/13/17 19:10 APTT 32.8 Seconds (25.1-36.5) 07/13/17 19:10 - Constitutional Appears: Non-toxic, No Acute Distress, Older Than Stated Age, Confused, Chronically Ill - Head Exam Head Exam: ATRAUMATIC, NORMOCEPHALIC - Eye Exam Eye Exam: EOMI, PERRL. absent: Conjunctival injection, Nystagmus, Scleral icterus Pupil Exam: NORMAL ACCOMODATION, PERRL. absent: Fixed, Irregular, Unequal - ENT Exam ENT Exam: Mucous Membranes Moist - Neck Exam Neck Exam: Full ROM - Respiratory Exam Respiratory Exam: Clear to Ausculation Bilateral, NORMAL BREATHING PATTERN. absent: Accessory Muscle Use, Rhonchi, Wheezes, Stridor - Cardiovascular Exam Cardiovascular Exam: RRR, +S1, +S2. absent: Tachycardia - GI/Abdominal Exam GI & Abdominal Exam: Soft, Normal Bowel Sounds. absent: Distended, Firm, Guarding, Tenderness, Hernia, Mass, Organomegaly, Rebound - Extremities Exam Extremities Exam: Normal Inspection. absent: Calf Tenderness, Pedal Edema - Back Exam Back Exam: NORMAL INSPECTION - Neurological Exam Neurological Exam: Altered, Awake - Psychiatric Exam Psychiatric exam: Normal Affect, Normal Mood - Skin Skin Exam: Dry, Normal Color, Warm Assessment and Plan - Assessment and Plan (Free Text) Assessment: 86 year old male, with a PMH hypertension, CAD, vertigo, atrial flutter, AAA, nephrolithiasis, GERD, fall, presents for AMS: AMS: 2/2 delirum vs stroke, seizure, cardiac, infection, metabolic - CT head showed Atrophy and small vessel disease, no bleed; age indeterminate, right frontal ischemic change new since the prior study - TSH high, free T4 normal - RPR - ammonia low - blood and urine cultures - CK normal - Failed bedside swallow - Formal swallow eval - Neuro and cardio consulted. F/u recs Subclinical hypothyroidism: - TSH high, ft4 normal - repeat in 3 months. Dehydration: - increased BUN, CBC appears hemo concentrated - received 1 L NS in ED - NS @75 cc DVT ppx- heparin GI ppx- protonix Case seen and discussed with Dr Obando. Kylah Griffiths, PGY1 <Main Obando - Last Filed: 07/14/17 15:32> Objective - Vital Signs/Intake and Output Vital Signs (last 24 hours): Temp Pulse Resp BP Pulse Ox 97.7 F 70 20 150/75 98 07/14/17 12:00 07/14/17 12:00 07/14/17 12:00 07/14/17 12:00 07/13/17 23:37 Intake and Output: 07/14/17 07/14/17 06:59 18:59 Intake Total 0 Balance 0 - Medications Medications: Current Medications Aspirin (Aspirin Chewable) 81 mg PO DAILY [facility] Heparin Sodium (Porcine) (Heparin) 5,000 units SC Q12 [facility] PRN Reason: Protocol Last Admin: 07/14/17 09:45 Dose: 5,000 units Sodium Chloride (Sodium Chloride 0.9%) 1,000 mls @ 75 mls/hr IV .[id number] [facility] Last Admin: 07/13/17 23:15 Dose: 75 mls/hr Levetiracetam 500 mg/ Sodium (Chloride) 105 mls @ 460 mls/hr IV Q12 [facility] Levothyroxine Sodium (Synthroid) 25 mcg PO 0600 [facility] Metoprolol Tartrate (Lopressor) 25 mg PO BID [facility] Pantoprazole Sodium (Protonix Inj) 40 mg IVP DAILY [facility] - Labs Labs: 07/14/17 03:08 07/14/17 03:08 PT 12.7 SECONDS (9.4-12.5) H 07/13/17 19:10 INR 1.11 (0.93-1.08) H 07/13/17 19:10 APTT 32.8 Seconds (25.1-36.5) 07/13/17 19:10 Attending/Attestation - Attestation I have personally seen and examined this patient.: Yes I have fully participated in the care of the patient.: Yes I have reviewed all pertinent clinical information, including history, physical exam and plan: Yes Notes (Text): 07/14/17 15:27 Attending note; Patient seen and examined with resident. Patient is a 86-year-old male with a past medical history of CVA, ? dementia, vertigo, fall, gait instability is admitted with altered mental status. CT head showed old lacunar infarct with new ischemic changes in the frontal lobe since 2 years. Possible worsening dementia; Alzheimer's versus vascular dementia. Neurology evaluation appreciated. MRI ordered. Patient is currently alert and awake. Not oriented to place and time. Not in any acute distress. Does not follow commands. But moves all extremities. No focal neurological deficit. EKG no acute ST-T changes. Cardiac enzymes negative. Cardiology evaluation appreciated. Discontinue telemetry. Failed swallow evaluation in the ER. speech and swallow evaluation requested. Nothing by mouth. IV fluids. GI and DVT prophylaxis. We will get physical therapy evaluation. Case discussed with machine adjuster leader case trim in detail. No next of kin or health Proxy available. Case discussed with patients friend good. Monitor closely.
--- NOTE | 2017-07-14 16:09 | CARD ---
APPROVED REPORT EXAM: Two-dimensional and M-mode echocardiogram with Doppler and color Doppler. INDICATION EVALUATE LVFX 2D DIMENSIONS IVSd1.0 (0.7-1.1cm)LVDd3.6 (3.9-5.9cm) PWd1.1 (0.7-1.1cm)LVDs2.5 (2.5-4.0cm) FS (%) 32.1 %LVEF (%)61.3 (>50%) M-Mode DIMENSIONS Aortic Root3.40 (2.2-3.7cm)Aortic Cusp Exc.1.60 (1.5-2.0cm) Aortic Valve AoV Peak Ohvczacx773.0cm/Derick Peak GR.9mmHg Mitral Valve MV E Bskyobev34.4cm/sMV A Vkrllcou864.0cm/sE/A ratio0.6 TDI Lateral E' Peak V7.60cm/sMedial E' Peak V4.78cm/sE/Lateral E'8.7 E/Medial E'13.9 Pulmonary Valve PV Peak Wauczywk97.8cm/sPV Peak Grad.3mmHg Tricuspid Valve TR Peak Acrltyic043ne/sRAP [id number] Peak Gr.27mmHg [id number] LEFT VENTRICLE The left ventricle is normal size. There is borderline to mild concentric left ventricular hypertrophy. The left ventricular function is normal.EF-60-65% There is normal LV segmental wall motion. Transmitral Doppler flow pattern is Grade III-reversible restrictive diastolic dysfunction. No left ventricle thrombus noted on this study. There is no ventricular septal defect visualized. There is no left ventricular aneurysm. There is no mass noted in the left ventricle. RIGHT VENTRICLE The right ventricle is normal size. There is normal right ventricular wall thickness. The right ventricular systolic function is normal. ATRIA The left atrium size is normal. The right atrium size is normal. The interatrial septum is intact with no evidence for an atrial septal defect. AORTIC VALVE The aortic valve is thickened but opens well. The aortic valve is moderately sclerotic. There is mild aortic regurgitation. There is no aortic valvular stenosis. There is no aortic valvular vegetation. MITRAL VALVE The mitral valve is thickened but opens well. Mitral annular calcification is moderate. Mitral regurgitation is trace. There is no mitral valve stenosis. There is no evidence of mitral valve prolapse. TRICUSPID VALVE The tricuspid valve leaflets are thickened , but open well. There is mild tricuspid regurgitation.RVSP-37 mmof Hg. There is no tricuspid valve stenosis. There is no tricuspid valve prolapse or vegetation. PULMONIC VALVE The pulmonic valve is borderline thickened. There is trace pulmonic valvular regurgitation. There is no pulmonic valvular stenosis. GREAT VESSELS The aortic root is normal in size. The ascending aorta is normal in size. The pulmonary artery is normal. The IVC is normal in size and collapses >50% with inspiration. PERICARDIAL EFFUSION There is no pleural effusion. There is no pericardial effusion. <Conclusion> Normal chamber Sizer. EF-60-65% There is mild aortic regurgitation. Mitral regurgitation is trace. There is mild tricuspid regurgitation.RVSP-37 mmof Hg. There is trace pulmonic valvular regurgitation. The IVC is normal in size and collapses >50% with inspiration. There is no pericardial effusion.
[2017-07-14] MEDS: Sodium Chloride 0.9% 1,000 ML IV SCH (17:30)
[2017-07-14] MEDS: levETIRAcetam 500mg IVPB 500 MG/100 ML BAG IVPB SCH (17:44)
--- NOTE | 2017-07-15 05:50 | CP.PCM.PN ---
Subjective - Date & Time of Evaluation Date of Evaluation: 07/15/17 Time of Evaluation: 06:20 - Subjective Subjective: Awake, lying in bed, able to answer yes/no,follows simple commands, denies chest pain, denies shortness of breath Reason for consultation: Cardiac evaluation, altered mental status, hypertension ,coronary artery disease,chronic vertigo,Atrial flutter, history of fall, AAA. Seen and examined by me and Dr. Crump Objective - Vital Signs/Intake and Output Vital Signs (last 24 hours): Temp Pulse Resp BP Pulse Ox 98.1 F 85 20 172/78 H 92 L 07/14/17 17:51 07/14/17 17:51 07/14/17 17:51 07/14/17 18:30 07/14/17 17:51 - Medications Medications: Current Medications Aspirin (Aspirin Chewable) 81 mg PO DAILY [facility] Last Admin: 07/14/17 17:31 Dose: 81 mg Heparin Sodium (Porcine) (Heparin) 5,000 units SC Q12 [facility] PRN Reason: Protocol Last Admin: 07/14/17 22:31 Dose: 5,000 units Sodium Chloride (Sodium Chloride 0.9%) 1,000 mls @ 75 mls/hr IV .[id number] [facility] Last Admin: 07/14/17 17:30 Dose: 75 mls/hr Levetiracetam (Keppra 500mg Ivpb) 500 mg in 100 mls @ 200 mls/hr IVPB BID [facility] Last Admin: 07/14/17 17:44 Dose: 200 mls/hr Levothyroxine Sodium (Synthroid) 25 mcg PO 0600 [facility] Metoprolol Tartrate (Lopressor) 25 mg PO BID [facility] Last Admin: 07/14/17 17:30 Dose: 25 mg Pantoprazole Sodium (Protonix Inj) 40 mg IVP DAILY [facility] Last Admin: 07/14/17 17:31 Dose: 40 mg - Labs Labs: 07/14/17 03:08 07/14/17 03:08 PT 12.7 SECONDS (9.4-12.5) H 07/13/17 19:10 INR 1.11 (0.93-1.08) H 07/13/17 19:10 APTT 32.8 Seconds (25.1-36.5) 07/13/17 19:10 - Constitutional Appears: No Acute Distress - Head Exam Head Exam: NORMOCEPHALIC - ENT Exam ENT Exam: Mucous Membranes Dry - Respiratory Exam Respiratory Exam: Decreased Breath Sounds, NORMAL BREATHING PATTERN - Cardiovascular Exam Cardiovascular Exam: +S1, +S2 - GI/Abdominal Exam GI & Abdominal Exam: Soft, Normal Bowel Sounds - Extremities Exam Extremities Exam: Normal Capillary Refill - Neurological Exam Neurological Exam: Alert, Awake Additional comments: confuse - Psychiatric Exam Psychiatric exam: Normal Affect - Skin Skin Exam: Intact, Normal Color, Warm Assessment and Plan - Assessment and Plan (Free Text) Assessment: An 86 year old male who was brought by EMS due to altered mental status. History of hypertension,coronary artery disease,chronic vertigo,atrial flutter, AAA, nephrolithiasis, syncopal episode, history of fall, GERD. Plan: Echo done yesterday LVEF 60%,normal, mild AR and trace MR compared to 2015 ECHO essentially no change More awake now, responds to simple questions for yes/no. follows simple commands like swallow and drink. Swallowing evaluation done and recommended thin liquids Ordered diet with thin liquids Cardiac status stable No evidence of myocardial ischemia On ASA 81 mg daily,Synthroid 25 mcg daily, Lopressor 25 mg BID SBP on the high side, will start Norvasc Continue current treatment Continue current medications Will follow up Plan and treatment discussed with Dr. Crump
[2017-07-15] MEDS: Levothyroxine 25 MCG TAB PO SCH (06:07)
[2017-07-15 07:01] LABS: BASO # 0.03 K/mm3 (0.0-2.0); BASO % 0.4 % (0.0-3.0); EOS # 0.4 (0.0-0.7); EOS % 4.9 % (1.5-5.0); GRAN # 4.52 (1.4-6.5); GRAN % 59.4 % (50.0-68.0); HEMOGLOBIN 14.3 g/dL (14.0-18.0); LYMPH # 1.8 (1.2-3.4); LYMPH % 23.1 % (22.0-35.0); MEAN CELL VOLUME 87.6 fl (80.0-105.0); MEAN CORPUSCULAR HGB CONC 33.1 g/dl (31.0-37.0); MEAN PLATELET VOLUME 9.9 fl (7.0-11.0); MONO # 0.9 (0.1-0.6); MONO % 12.2 % (1.0-6.0); RBC 4.93 10^6/uL (3.5-6.1); RED CELL DISTRIBUTION WIDTH 12.7 % (11.5-14.5); WHITE BLOOD COUNT 7.6 10^3/ul (4.5-11.0)
[2017-07-15 07:14] LABS: ALB/GLOB RATIO 1.1 (1.1-1.8); ALT/SGPT 49 U/L (7-56); AST/SGOT 50 U/L (17-59); BLOOD UREA NITROGEN 20 mg/dL (7-21); CALCIUM 8.7 mg/dL (8.4-10.5); GFR AFRICAN-AMERICAN > 60; GFR NON-AFRICAN AMERICAN > 60
--- NOTE | 2017-07-15 08:04 | CP.PCM.PN ---
Subjective - Date & Time of Evaluation Date of Evaluation: 07/15/17 Time of Evaluation: 08:04 Objective - Vital Signs/Intake and Output Vital Signs (last 24 hours): Temp Pulse Resp BP Pulse Ox 98.1 F 85 20 172/78 H 92 L 07/14/17 17:51 07/14/17 17:51 07/14/17 17:51 07/14/17 18:30 07/14/17 17:51 - Medications Medications: Current Medications Amlodipine Besylate (Norvasc) 10 mg PO DAILY [facility] Aspirin (Aspirin Chewable) 81 mg PO DAILY [facility] Last Admin: 07/14/17 17:31 Dose: 81 mg Heparin Sodium (Porcine) (Heparin) 5,000 units SC Q12 [facility] PRN Reason: Protocol Last Admin: 07/14/17 22:31 Dose: 5,000 units Sodium Chloride (Sodium Chloride 0.9%) 1,000 mls @ 75 mls/hr IV .[id number] [facility] Last Admin: 07/14/17 17:30 Dose: 75 mls/hr Levetiracetam (Keppra 500mg Ivpb) 500 mg in 100 mls @ 200 mls/hr IVPB BID [facility] Last Admin: 07/14/17 17:44 Dose: 200 mls/hr Levothyroxine Sodium (Synthroid) 25 mcg PO 0600 [facility] Last Admin: 07/15/17 06:07 Dose: 25 mcg Metoprolol Tartrate (Lopressor) 25 mg PO BID [facility] Last Admin: 07/14/17 17:30 Dose: 25 mg Pantoprazole Sodium (Protonix Inj) 40 mg IVP DAILY [facility] Last Admin: 07/14/17 17:31 Dose: 40 mg - Labs Labs: 07/15/17 06:20 07/15/17 06:20 PT 12.7 SECONDS (9.4-12.5) H 07/13/17 19:10 INR 1.11 (0.93-1.08) H 07/13/17 19:10 APTT 32.8 Seconds (25.1-36.5) 07/13/17 19:10
--- NOTE | 2017-07-15 08:15 | CP.PCM.PN ---
Subjective - Date & Time of Evaluation Date of Evaluation: 07/15/17 Time of Evaluation: 09:00 - Subjective Subjective: PGY2 Neuro Progress note for Dr. Alfred Patient seen and examined at bedside. As per nursing patient was agitated overnight and screaming out and pulled out his IVs twice. This AM he was speaking incoherent sentences and not following instructions or answering appropriately to any questions. ROS unobtainable secondary to patient condition. Objective - Vital Signs/Intake and Output Vital Signs (last 24 hours): Temp Pulse Resp BP Pulse Ox 98.1 F 85 20 172/78 H 92 L 07/14/17 17:51 07/14/17 17:51 07/14/17 17:51 07/14/17 18:30 07/14/17 17:51 - Medications Medications: Current Medications Amlodipine Besylate (Norvasc) 10 mg PO DAILY [facility] Aspirin (Aspirin Chewable) 81 mg PO DAILY [facility] Last Admin: 07/14/17 17:31 Dose: 81 mg Heparin Sodium (Porcine) (Heparin) 5,000 units SC Q12 [facility] PRN Reason: Protocol Last Admin: 07/14/17 22:31 Dose: 5,000 units Sodium Chloride (Sodium Chloride 0.9%) 1,000 mls @ 75 mls/hr IV .[id number] [facility] Last Admin: 07/14/17 17:30 Dose: 75 mls/hr Levetiracetam (Keppra 500mg Ivpb) 500 mg in 100 mls @ 200 mls/hr IVPB BID [facility] Last Admin: 07/14/17 17:44 Dose: 200 mls/hr Levothyroxine Sodium (Synthroid) 25 mcg PO 0600 [facility] Last Admin: 07/15/17 06:07 Dose: 25 mcg Metoprolol Tartrate (Lopressor) 25 mg PO BID [facility] Last Admin: 07/14/17 17:30 Dose: 25 mg Pantoprazole Sodium (Protonix Inj) 40 mg IVP DAILY [facility] Last Admin: 07/14/17 17:31 Dose: 40 mg - Labs Labs: 07/15/17 06:20 07/15/17 06:20 PT 12.7 SECONDS (9.4-12.5) H 07/13/17 19:10 INR 1.11 (0.93-1.08) H 07/13/17 19:10 APTT 32.8 Seconds (25.1-36.5) 07/13/17 19:10 - Constitutional Appears: Unkempt, Other (altered) - Eye Exam Eye Exam: Normal appearance. absent: Conjunctival injection, Scleral icterus - Respiratory Exam Respiratory Exam: NORMAL BREATHING PATTERN. absent: Accessory Muscle Use, Respiratory Distress - Cardiovascular Exam Cardiovascular Exam: +S1, +S2 - Neurological Exam Neurological Exam: Alert, Awake Additional comments: unable to assess completely as patient was not following directions moving all 4 extremities however moving left arm less than right withdraws to pain appropriately - Psychiatric Exam Additional comments: altered Assessment and Plan - Assessment and Plan (Free Text) Assessment: 86yo male PMHx HTN, CAD, and vertigo was BIBA for AMS Plan: -Head CT on admission: atrophy and small vessel disease, no bleed; age indeterminate R frontal ischemic change new since prior study -Head CT 12/21/15: no acute intracranial hemorrhage. 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 Marked dilatation 3rd and lateral ventricles with normal caliber 4th ventricle. Rule out central volume loss vs chronic compensated obstructive hydrocephalus. NPH could be considered only if the clinical triad of dementia, ataxia, and incontinence present. -f/u MRI -f/u EEG -Echo unremarkable -RPR nonreactive -start patient on Keppra 500mg iv q12 and ASA 81mg qd -Seroquel 12.5mg po hs -Patient had an EEG in 03/2014 which was unremarkable -Speech/Swallow eval and treat -PT/OT -GI and DVT ppx -Neuro check q4 -Aspiration/Seizure/Fall risk precautions in place -recommend prison/half-way care for patient -Continue medical management Discussed with Dr. Tima Moses PGY2
--- NOTE | 2017-07-15 10:11 | CP.PCM.PN ---
<Kylah Griffiths - Last Filed: 07/15/17 11:22> Subjective - Date & Time of Evaluation Date of Evaluation: 07/15/17 Time of Evaluation: 10:09 - Subjective Subjective: Kylah Griffiths, PGY1, Medicine Progress Note for Dr Obando: Patient seen and examined at bedside. No acute events overnight. Pt remains confused, answering few questions, otherwise repeating words. No fevers, vomiting. Tolerating PO diet. Pulled out IV, pt remains mildly agitated. Objective - Vital Signs/Intake and Output Vital Signs (last 24 hours): Temp Pulse Resp BP Pulse Ox 97.6 F 71 20 148/79 98 07/15/17 06:00 07/15/17 06:00 07/15/17 06:00 07/15/17 09:37 07/15/17 06:00 - Medications Medications: Current Medications Amlodipine Besylate (Norvasc) 10 mg PO DAILY [facility] Last Admin: 07/15/17 09:37 Dose: Not Given Aspirin (Aspirin Chewable) 81 mg PO DAILY [facility] Last Admin: 07/15/17 09:37 Dose: Not Given Heparin Sodium (Porcine) (Heparin) 5,000 units SC Q12 [facility] PRN Reason: Protocol Last Admin: 07/14/17 22:31 Dose: 5,000 units Sodium Chloride (Sodium Chloride 0.9%) 1,000 mls @ 75 mls/hr IV .[id number] [facility] Last Admin: 07/14/17 17:30 Dose: 75 mls/hr Levetiracetam (Keppra 500mg Ivpb) 500 mg in 100 mls @ 200 mls/hr IVPB BID [facility] Last Admin: 07/14/17 17:44 Dose: 200 mls/hr Levothyroxine Sodium (Synthroid) 25 mcg PO 0600 [facility] Last Admin: 07/15/17 06:07 Dose: 25 mcg Metoprolol Tartrate (Lopressor) 25 mg PO BID [facility] Last Admin: 07/15/17 09:37 Dose: Not Given Pantoprazole Sodium (Protonix Inj) 40 mg IVP DAILY [facility] Last Admin: 07/14/17 17:31 Dose: 40 mg Quetiapine Fumarate (Seroquel) 25 mg PO HS PRN; Protocol PRN Reason: Agitation - Labs Labs: 07/15/17 06:20 07/15/17 06:20 PT 12.7 SECONDS (9.4-12.5) H 07/13/17 19:10 INR 1.11 (0.93-1.08) H 07/13/17 19:10 APTT 32.8 Seconds (25.1-36.5) 07/13/17 19:10 - Constitutional Appears: Non-toxic, No Acute Distress, Older Than Stated Age, Agitated, Confused , Chronically Ill - Head Exam Head Exam: ATRAUMATIC, NORMOCEPHALIC - Eye Exam Eye Exam: EOMI, PERRL. absent: Conjunctival injection, Nystagmus, Scleral icterus Pupil Exam: NORMAL ACCOMODATION, PERRL. absent: Fixed, Irregular, Unequal - ENT Exam ENT Exam: Mucous Membranes Moist - Neck Exam Neck Exam: Full ROM - Respiratory Exam Respiratory Exam: Clear to Ausculation Bilateral, NORMAL BREATHING PATTERN. absent: Accessory Muscle Use, Rales, Rhonchi, Wheezes, Stridor - Cardiovascular Exam Cardiovascular Exam: RRR, +S1, +S2. absent: Murmur - GI/Abdominal Exam GI & Abdominal Exam: Soft, Normal Bowel Sounds. absent: Firm, Guarding, Rigid, Tenderness, Mass, Organomegaly, Rebound - Extremities Exam Extremities Exam: Normal Inspection. absent: Calf Tenderness, Pedal Edema - Back Exam Back Exam: NORMAL INSPECTION - Neurological Exam Neurological Exam: Alert, Awake, Oriented x3 - Psychiatric Exam Psychiatric exam: Normal Affect, Normal Mood - Skin Skin Exam: Dry, Normal Color, Warm Assessment and Plan - Assessment and Plan (Free Text) Assessment: 86 year old male, with a PMH hypertension, CAD, vertigo, atrial flutter, AAA, nephrolithiasis, GERD, fall, presents for AMS: AMS: 2/2 delirum vs stroke, seizure, cardiac, infection, metabolic - CT head showed Atrophy and small vessel disease, no bleed; age indeterminate, right frontal ischemic change new since the prior study - TSH high, free T4 normal - RPR NR - ammonia low - blood cultures NTD - CK normal - Formal swallow eval recommended advance bite size and thin liquids. HHD ordered. - Neuro and cardio consulted. appreciate recs. Pt could not undergo MRI yesterday as pt is agitated/confused. Will discuss with Neuro if they still want the test. Subclinical hypothyroidism: - TSH high, ft4 normal - repeat in 3 months. Dehydration: - increased BUN, CBC appears hemo concentrated - received 1 L NS in ED - NS @75 cc HHD - bite size, thin liquids Dispo: Sister in [place]. SW trying to obtain contact info or reach any family. DVT ppx- heparin GI ppx- protonix Case seen and discussed with Dr Obando. Kylah Griffiths, PGY1 <Main Obando - Last Filed: 07/15/17 17:32> Objective - Vital Signs/Intake and Output Vital Signs (last 24 hours): Temp Pulse Resp BP Pulse Ox 97.6 F 71 20 148/79 98 07/15/17 06:00 07/15/17 06:00 07/15/17 06:00 07/15/17 09:37 07/15/17 06:00 Intake and Output: 07/15/17 07/15/17 06:59 18:59 Intake Total 120 Balance 120 - Medications Medications: Current Medications Amlodipine Besylate (Norvasc) 10 mg PO DAILY [facility] Last Admin: 07/15/17 09:37 Dose: Not Given Aspirin (Aspirin Chewable) 81 mg PO DAILY [facility] Last Admin: 07/15/17 09:37 Dose: Not Given Heparin Sodium (Porcine) (Heparin) 5,000 units SC Q12 [facility] PRN Reason: Protocol Last Admin: 07/15/17 10:38 Dose: Not Given Sodium Chloride (Sodium Chloride 0.9%) 1,000 mls @ 75 mls/hr IV .[id number] [facility] Last Admin: 07/14/17 17:30 Dose: 75 mls/hr Levetiracetam (Keppra 500mg Ivpb) 500 mg in 100 mls @ 200 mls/hr IVPB BID [facility] Last Admin: 07/15/17 10:38 Dose: Not Given Levothyroxine Sodium (Synthroid) 25 mcg PO 0600 [facility] Last Admin: 07/15/17 06:07 Dose: 25 mcg Lorazepam (Ativan) 0.5 mg IVP Q8 PRN; Protocol PRN Reason: agitation/restlessness Lorazepam (Ativan) 0.5 mg PO TID PRN; Protocol PRN Reason: agitaiton/anxiety Metoprolol Tartrate (Lopressor) 25 mg PO BID [facility] Last Admin: 07/15/17 09:37 Dose: Not Given Mirtazapine (Remeron) 7.5 mg PO HS PRN PRN Reason: restlessness and insomnia Pantoprazole Sodium (Protonix Ec Tab) 40 mg PO ACB [facility] - Labs Labs: 07/15/17 06:20 07/15/17 06:20 PT 12.7 SECONDS (9.4-12.5) H 07/13/17 19:10 INR 1.11 (0.93-1.08) H 07/13/17 19:10 APTT 32.8 Seconds (25.1-36.5) 07/13/17 19:10 Attending/Attestation - Attestation I have personally seen and examined this patient.: Yes I have fully participated in the care of the patient.: Yes I have reviewed all pertinent clinical information, including history, physical exam and plan: Yes Notes (Text): 07/15/17 17:30 Attending note; Patient seen and examined with resident. Patient is a 86-year-old male with a past medical history of CVA, ? dementia, vertigo, fall, gait instability is admitted with altered mental status. CT head showed old lacunar infarct with new ischemic changes in the frontal lobe since 2 years. Possible worsening dementia; Alzheimer's versus vascular dementia. Neurology evaluation appreciated. Patient is currently alert and awake. Not oriented to place and time. Not in any acute distress. Does not follow commands. But moves all extremities. No focal neurological deficit. Speech and swallow evaluation appreciated. Started on bite size diet with thin liquids. GI and DVT prophylaxis. PT recommended subacute rehabilitation. Case discussed with pillowcase folder in detail for discharge planning.
[2017-07-15] MEDS: levETIRAcetam 500mg IVPB 500 MG/100 ML BAG IVPB SCH (10:38)
[2017-07-15] MEDS: Sodium Chloride 0.9% 1,000 ML IV SCH (22:20)
[2017-07-16] MEDS: Levothyroxine 25 MCG TAB PO SCH (05:53)
[2017-07-16 07:48] LABS: BASO # 0.03 K/mm3 (0.0-2.0); BASO % 0.4 % (0.0-3.0); EOS # 0.4 (0.0-0.7); EOS % 6.1 % (1.5-5.0); GRAN # 3.44 (1.4-6.5); GRAN % 51.1 % (50.0-68.0); LYMPH # 1.8 (1.2-3.4); LYMPH % 27.2 % (22.0-35.0); MEAN CELL VOLUME 87.3 fl (80.0-105.0); MEAN CORPUSCULAR HEMOGLOBIN 29.2 pg (25.0-35.0); MEAN CORPUSCULAR HGB CONC 33.4 g/dl (31.0-37.0); MEAN PLATELET VOLUME 10.1 fl (7.0-11.0); MONO % 15.2 % (1.0-6.0); RBC 4.8 10^6/uL (3.5-6.1); RED CELL DISTRIBUTION WIDTH 12.5 % (11.5-14.5); WHITE BLOOD COUNT 6.7 10^3/ul (4.5-11.0)
[2017-07-16 07:51] LABS: ALBUMIN 2.8 g/dL (3.0-4.8); ALT/SGPT 48 U/L (7-56); AST/SGOT 53 U/L (17-59); BLOOD UREA NITROGEN 16 mg/dL (7-21); CALCIUM 8.5 mg/dL (8.4-10.5); GFR AFRICAN-AMERICAN > 60; GFR NON-AFRICAN AMERICAN > 60
[2017-07-16] MEDS: levETIRAcetam 500mg IVPB 500 MG/100 ML BAG IVPB SCH (11:21)
[2017-07-16] MEDS: Pantoprazole 40 mg EC Tab PO SCH (11:22)
[2017-07-16] MEDS: Sodium Chloride 0.9% 1,000 ML IV SCH ×2 (11:22→20:11)
--- NOTE | 2017-07-16 15:08 | CP.PCM.PN ---
<Dm Torres - Last Filed: 07/16/17 15:06> Subjective - Date & Time of Evaluation Date of Evaluation: 07/16/17 Time of Evaluation: 09:00 - Subjective Subjective: PGY1 Medicine Note for Dr. Obando Patient seen and examined this morning at bedside. No acute events overnight. Patient responded to questions this morning with one and two word answers. He is repeating back questions that are asked to him. ROS unreliable but patient denies any pain. He is tolerating a PO diet, with intermittent agitation. Objective - Vital Signs/Intake and Output Vital Signs (last 24 hours): Temp Pulse Resp BP Pulse Ox 98.4 F 73 18 154/82 H 96 07/16/17 08:24 07/16/17 11:21 07/16/17 08:24 07/16/17 11:21 07/16/17 08:24 - Medications Medications: Current Medications Amlodipine Besylate (Norvasc) 10 mg PO DAILY [facility] Last Admin: 07/16/17 11:21 Dose: 10 mg Aspirin (Aspirin Chewable) 81 mg PO DAILY [facility] Last Admin: 07/16/17 11:13 Dose: 81 mg Heparin Sodium (Porcine) (Heparin) 5,000 units SC Q12 [facility] PRN Reason: Protocol Last Admin: 07/16/17 11:12 Dose: 5,000 units Sodium Chloride (Sodium Chloride 0.9%) 1,000 mls @ 75 mls/hr IV .[id number] [facility] Last Admin: 07/16/17 11:22 Dose: 75 mls/hr Levetiracetam (Keppra 500mg Ivpb) 500 mg in 100 mls @ 200 mls/hr IVPB BID [facility] Last Admin: 07/16/17 11:21 Dose: 200 mls/hr Levothyroxine Sodium (Synthroid) 25 mcg PO 0600 [facility] Last Admin: 07/16/17 05:53 Dose: 25 mcg Lorazepam (Ativan) 0.5 mg IVP Q8 PRN; Protocol PRN Reason: agitation/restlessness Last Admin: 07/16/17 14:15 Dose: 0.5 mg Lorazepam (Ativan) 0.25 mg PO TID PRN; Protocol PRN Reason: agitaiton/anxiety Metoprolol Tartrate (Lopressor) 25 mg PO BID [facility] Last Admin: 07/16/17 11:21 Dose: 25 mg Mirtazapine (Remeron) 7.5 mg PO HS PRN PRN Reason: restlessness and insomnia Pantoprazole Sodium (Protonix Ec Tab) 40 mg PO ACB [facility] Last Admin: 07/16/17 11:22 Dose: 40 mg Quetiapine Fumarate (Seroquel) 12.5 mg PO HS [facility] PRN Reason: Protocol Last Admin: 07/15/17 23:15 Dose: 12.5 mg - Labs Labs: 07/16/17 07:00 07/16/17 07:00 PT 12.7 SECONDS (9.4-12.5) H 07/13/17 19:10 INR 1.11 (0.93-1.08) H 07/13/17 19:10 APTT 32.8 Seconds (25.1-36.5) 07/13/17 19:10 - Constitutional Appears: Non-toxic, No Acute Distress - Head Exam Head Exam: ATRAUMATIC, NORMOCEPHALIC - Eye Exam Eye Exam: EOMI, Normal appearance Pupil Exam: NORMAL ACCOMODATION, PERRL - ENT Exam ENT Exam: Mucous Membranes Moist - Neck Exam Neck Exam: Normal Inspection. absent: Lymphadenopathy - Respiratory Exam Respiratory Exam: Clear to Ausculation Bilateral, NORMAL BREATHING PATTERN. absent: Accessory Muscle Use, Rales, Rhonchi, Wheezes, Respiratory Distress - Cardiovascular Exam Cardiovascular Exam: REGULAR RHYTHM, +S1, +S2 - GI/Abdominal Exam GI & Abdominal Exam: Soft, Normal Bowel Sounds. absent: Distended, Firm, Guarding, Rigid, Tenderness - Extremities Exam Extremities Exam: Normal Inspection. absent: Calf Tenderness, Pedal Edema - Neurological Exam Neurological Exam: Alert, Awake. absent: Oriented x3 Additional comments: moving all four extremities. unable to follow simple commands. speech is clear, no facial droop. Responds spontaneously to name, but quickly falls back asleep. - Skin Skin Exam: Dry, Warm Assessment and Plan - Assessment and Plan (Free Text) Assessment: 86 year old male, with a PMH hypertension, CAD, vertigo, atrial flutter, AAA, nephrolithiasis, GERD, fall, presents for AMS Plan: AMS 2/2 delirum vs stroke, seizure, cardiac, infection, metabolic - Neurology consulted, Dr. Alfred - Brain MRI - f/u - patient has been unable to tolerate imaging so far - EEG - f/u - Keppra 500 mg IVPB BID - Seroquel 12.5 mg PO HS - Cardiology consulted, Dr. Crump - ECHO - unremarkable - Trop neg x 3 - CT head showed Atrophy and small vessel disease, no bleed; age indeterminate, right frontal ischemic change new since the prior study - TSH high, free T4 normal - RPR NR - ammonia low - blood cultures - no growth at 48 hours - CK normal - Formal swallow eval recommended advance bite size and thin liquids. HHD ordered. Subclinical hypothyroidism - TSH high, ft4 normal - repeat in 3 months. Dehydration - NS @75 cc Hypertension/CAD - Aspirin 81 mg PO daily - Norvasc 10 mg PO daily - Metoprolol Tart 25 mg PO BID HHD - bite size, thin liquids DVT ppx- heparin GI ppx- protonix DISPO: Sister is in [place]. SW is trying to obtain contact info or reach any family. Case discussed with Dr. Topher Chaidez Melissa PGY1 <Main Obando - Last Filed: 07/16/17 16:33> Objective - Vital Signs/Intake and Output Vital Signs (last 24 hours): Temp Pulse Resp BP Pulse Ox 98.4 F 73 18 154/82 H 96 07/16/17 08:24 07/16/17 11:21 07/16/17 08:24 07/16/17 11:21 07/16/17 08:24 Intake and Output: 07/16/17 07/16/17 06:59 18:59 Intake Total 240 Balance 240 - Medications Medications: Current Medications Amlodipine Besylate (Norvasc) 10 mg PO DAILY [facility] Last Admin: 07/16/17 11:21 Dose: 10 mg Aspirin (Aspirin Chewable) 81 mg PO DAILY [facility] Last Admin: 07/16/17 11:13 Dose: 81 mg Heparin Sodium (Porcine) (Heparin) 5,000 units SC Q12 [facility] PRN Reason: Protocol Last Admin: 07/16/17 11:12 Dose: 5,000 units Sodium Chloride (Sodium Chloride 0.9%) 1,000 mls @ 75 mls/hr IV .[id number] [facility] Last Admin: 07/16/17 11:22 Dose: 75 mls/hr Levetiracetam (Keppra 500mg Ivpb) 500 mg in 100 mls @ 200 mls/hr IVPB BID [facility] Last Admin: 07/16/17 11:21 Dose: 200 mls/hr Levothyroxine Sodium (Synthroid) 25 mcg PO 0600 [facility] Last Admin: 07/16/17 05:53 Dose: 25 mcg Lorazepam (Ativan) 0.5 mg IVP Q8 PRN; Protocol PRN Reason: agitation/restlessness Last Admin: 07/16/17 14:15 Dose: 0.5 mg Lorazepam (Ativan) 0.25 mg PO TID PRN; Protocol PRN Reason: agitaiton/anxiety Metoprolol Tartrate (Lopressor) 25 mg PO BID [facility] Last Admin: 07/16/17 11:21 Dose: 25 mg Mirtazapine (Remeron) 7.5 mg PO HS PRN PRN Reason: restlessness and insomnia Pantoprazole Sodium (Protonix Ec Tab) 40 mg PO ACB [facility] Last Admin: 07/16/17 11:22 Dose: 40 mg Quetiapine Fumarate (Seroquel) 12.5 mg PO HS [facility] PRN Reason: Protocol Last Admin: 07/15/17 23:15 Dose: 12.5 mg - Labs Labs: 07/16/17 07:00 07/16/17 07:00 PT 12.7 SECONDS (9.4-12.5) H 07/13/17 19:10 INR 1.11 (0.93-1.08) H 07/13/17 19:10 APTT 32.8 Seconds (25.1-36.5) 07/13/17 19:10 Attending/Attestation - Attestation I have personally seen and examined this patient.: Yes I have fully participated in the care of the patient.: Yes I have reviewed all pertinent clinical information, including history, physical exam and plan: Yes Notes (Text): 07/16/17 15:24 Attending note; Patient seen and examined with resident. Patient is a 86-year-old male with a past medical history of CVA, ? dementia, vertigo, fall, gait instability is admitted with altered mental status. CT head showed old lacunar infarct with new ischemic changes in the frontal lobe since 2 years. Possible worsening dementia; Alzheimer's versus vascular dementia. Neurology evaluation appreciated. MRI could not be done due to agitation. Psychiatric evaluation appreciated; started on by mouth Ativan and remeron. Patient is currently alert and awake. Not oriented to place and time. Not in any acute distress. But moves all extremities. No focal neurological deficit. Speech and swallow evaluation appreciated. Started on bite size diet with thin liquids. GI and DVT prophylaxis. PT recommended subacute rehabilitation. Case discussed with caser shoe parts in detail for discharge planning.
--- NOTE | 2017-07-16 21:07 | CON ---
DATE: 07/16/2017 HISTORY OF PRESENT ILLNESS: Patient is an 86-year-old white male who has been followed by Psychiatry on the medical floor due to confusion as well as agitation. Dr. Meade met with patient yesterday. I had been unable to review her consultation as this has not been transcribed as of this note; however, I did review recent nursing notes and Nursing today as well as interviewed patient at bedside. Patient is currently taking Ativan 0.5 mg t.i.d., Remeron 7.5 mg at bedtime, and Seroquel 12.5 mg at bedtime; apparently, he continues to be disoriented, confused, and unpredictable, but has been calmer since initiation of these medications. Patient did sleep better last night and there were no acute episodes. He is not able to engage in a productive interview with me due to disorientation and confusion. He generally mumbles incoherently and is difficult to comprehend his responses even with repeat questioning. He does not appear to be hallucinating or acutely paranoid; however, I cannot rule out the presence of delusions. His responses can be comprehended are not generally relevant to questioning and Nursing states that he has a tendency to echo their questions rather than responds relevantly. He does not appear to be in any discomfort or pain and denies as much during my interview with him. As of right now, his insight and judgment considered to be poor. PHYSICAL EXAMINATION: VITAL SIGNS: Reviewed by this provider. LABORATORY DATA: Reviewed by this provider. RELEVANT PSYCHIATRIC MEDICATIONS: As mentioned. As noted in my progress note, patient is taking Remeron 7.5 mg at bedtime, patient did not receive dose last night; Seroquel 12.5 mg at bedtime, patient received one dose last night; and Ativan 0.5 mg p.o. t.i.d., patient did not receive any doses as of yet. IMPRESSION: Patient is likely suffering from dementia complicated by overlying delirium, currently confused, poorly oriented, and remains unpredictable. RECOMMENDATIONS: Would continue with recommended medications. Patient does not appear to have required Ativan and we will decrease the standing dose to 0.25 IV every 8 hours p.r.n. as Ativan can worsen confusion in the elderly patient . Psychiatry will follow up with patient every other day and monitor patient's behavior and mental status. Specifically Dr. Meade for followup with patient on 07/18/2017. Please re-consult for an earlier followup if there are any acute changes in patient's presentation. Camila Escobar MD
[2017-07-17] MEDS: Levothyroxine 25 MCG TAB PO SCH (06:01)
[2017-07-17 07:28] LABS: BASO # 0.03 K/mm3 (0.0-2.0); BASO % 0.4 % (0.0-3.0); EOS # 0.4 (0.0-0.7); EOS % 4.9 % (1.5-5.0); GRAN # 4.64 (1.4-6.5); GRAN % 63.7 % (50.0-68.0); HEMOGLOBIN 13.8 g/dL (14.0-18.0); LYMPH # 1.3 (1.2-3.4); MEAN CELL VOLUME 86.9 fl (80.0-105.0); MEAN CORPUSCULAR HEMOGLOBIN 29.1 pg (25.0-35.0); MEAN CORPUSCULAR HGB CONC 33.4 g/dl (31.0-37.0); MEAN PLATELET VOLUME 9.7 fl (7.0-11.0); RBC 4.75 10^6/uL (3.5-6.1); RED CELL DISTRIBUTION WIDTH 12.6 % (11.5-14.5); WHITE BLOOD COUNT 7.3 10^3/ul (4.5-11.0)
[2017-07-17 07:31] LABS: ALBUMIN 2.8 g/dL (3.0-4.8); ALT/SGPT 57 U/L (7-56); AST/SGOT 62 U/L (17-59); BLOOD UREA NITROGEN 10 mg/dL (7-21); CALCIUM 8.4 mg/dL (8.4-10.5); GFR AFRICAN-AMERICAN > 60; GFR NON-AFRICAN AMERICAN > 60
[2017-07-17] MEDS: Pantoprazole 40 mg EC Tab PO SCH (09:39)
--- NOTE | 2017-07-17 10:37 | CP.PCM.PN ---
<Dm Torres - Last Filed: 07/17/17 10:33> Subjective - Date & Time of Evaluation Date of Evaluation: 07/17/17 Time of Evaluation: 08:45 - Subjective Subjective: PGY1 Medicine Note for Dr. Obando Patient seen and examined this morning at bedside. No acute events overnight. Patient is only repeating back questions/statements that are spoken to him. He is unable to respond appropriately to any questions. He is tolerating a PO diet , with assistance with feeding. ROS unattainable 2/2 mental status. Objective - Vital Signs/Intake and Output Vital Signs (last 24 hours): Temp Pulse Resp BP Pulse Ox 97.7 F 80 20 156/86 H 95 07/17/17 07:49 07/17/17 07:49 07/17/17 07:49 07/17/17 09:39 07/17/17 07:49 - Medications Medications: Current Medications Amlodipine Besylate (Norvasc) 10 mg PO DAILY [facility] Last Admin: 07/17/17 09:39 Dose: 10 mg Aspirin (Aspirin Chewable) 81 mg PO DAILY [facility] Last Admin: 07/17/17 09:39 Dose: 81 mg Heparin Sodium (Porcine) (Heparin) 5,000 units SC Q12 [facility] PRN Reason: Protocol Last Admin: 07/17/17 09:42 Dose: 5,000 units Sodium Chloride (Sodium Chloride 0.9%) 1,000 mls @ 75 mls/hr IV .[id number] [facility] Last Admin: 07/16/17 20:11 Dose: Not Given Levetiracetam (Keppra) 500 mg PO BID [facility] Last Admin: 07/17/17 09:40 Dose: 500 mg Levothyroxine Sodium (Synthroid) 25 mcg PO 0600 [facility] Last Admin: 07/17/17 06:01 Dose: 25 mcg Lorazepam (Ativan) 0.5 mg IVP Q8 PRN; Protocol PRN Reason: agitation/restlessness Last Admin: 07/16/17 14:15 Dose: 0.5 mg Lorazepam (Ativan) 0.25 mg PO TID PRN; Protocol PRN Reason: agitaiton/anxiety Metoprolol Tartrate (Lopressor) 25 mg PO BID [facility] Last Admin: 07/17/17 09:39 Dose: 25 mg Mirtazapine (Remeron) 7.5 mg PO HS PRN PRN Reason: restlessness and insomnia Pantoprazole Sodium (Protonix Ec Tab) 40 mg PO ACB [facility]INE Last Admin: 07/17/17 09:39 Dose: 40 mg Quetiapine Fumarate (Seroquel) 12.5 mg PO HS [facility]INE PRN Reason: Protocol Last Admin: 07/16/17 21:18 Dose: 12.5 mg - Labs Labs: 07/17/17 07:00 07/17/17 07:00 PT 12.7 SECONDS (9.4-12.5) H 07/13/17 19:10 INR 1.11 (0.93-1.08) H 07/13/17 19:10 APTT 32.8 Seconds (25.1-36.5) 07/13/17 19:10 - Constitutional Appears: Non-toxic, No Acute Distress - Head Exam Head Exam: ATRAUMATIC, NORMOCEPHALIC - Eye Exam Eye Exam: EOMI, Normal appearance - ENT Exam ENT Exam: Mucous Membranes Moist - Neck Exam Neck Exam: absent: Lymphadenopathy - Respiratory Exam Respiratory Exam: Clear to Ausculation Bilateral, NORMAL BREATHING PATTERN. absent: Accessory Muscle Use, Rales, Rhonchi, Wheezes, Respiratory Distress - Cardiovascular Exam Cardiovascular Exam: REGULAR RHYTHM, +S1, +S2 - GI/Abdominal Exam GI & Abdominal Exam: Soft, Normal Bowel Sounds. absent: Distended, Firm, Guarding, Rigid, Tenderness - Extremities Exam Extremities Exam: absent: Calf Tenderness, Pedal Edema - Neurological Exam Neurological Exam: Alert, Awake. absent: Oriented x3 Additional comments: moving all four extremities. unable to follow simple commands. speech is mostly comprehensible - echolalia no facial droop. - Skin Skin Exam: Dry, Warm Assessment and Plan - Assessment and Plan (Free Text) Assessment: 86 year old male, with a PMH hypertension, CAD, vertigo, atrial flutter, AAA, nephrolithiasis, GERD, fall, presents for AMS Plan: AMS 2/2 delirum vs stroke, seizure, cardiac, infection, metabolic - Neurology consulted, Dr. Alfred - Brain MRI - f/u - patient has been unable to tolerate imaging so far - EEG - f/u - Keppra 500 mg IVPB BID - switched to PO - Seroquel 12.5 mg PO HS - Cardiology consulted, Dr. Crump - ECHO - unremarkable - Trop neg x 3 - CT head showed Atrophy and small vessel disease, no bleed; age indeterminate, right frontal ischemic change new since the prior study - TSH high, free T4 normal - RPR NR - ammonia low - blood cultures - no growth at 3 days - CK normal - Formal swallow eval recommended advance bite size and thin liquids. HHD ordered. Subclinical hypothyroidism - Synthroid 25 mcg PO daily - TSH high, free T4 normal - repeat in 3 months. Dehydration - NS @75 cc Hypertension/CAD - Aspirin 81 mg PO daily - Norvasc 10 mg PO daily - Metoprolol Tart 25 mg PO BID HHD - bite size, thin liquids DVT ppx- heparin 5,000 units SC q12h GI ppx- protonix 40mg PO ACB DISPO: Sister is in [place]. SW is trying to obtain contact info or reach any family. SW will attempt to set patient up for senior living care or [facility] on Tuesday. Case discussed with Dr. Topher Chaidez Melissa PGY1 <Main Obando - Last Filed: 07/17/17 10:49> Objective - Vital Signs/Intake and Output Vital Signs (last 24 hours): Temp Pulse Resp BP Pulse Ox 97.7 F 80 20 156/86 H 95 07/17/17 07:49 07/17/17 07:49 07/17/17 07:49 07/17/17 09:39 07/17/17 07:49 - Medications Medications: Current Medications Amlodipine Besylate (Norvasc) 10 mg PO DAILY [facility] Last Admin: 07/17/17 09:39 Dose: 10 mg Aspirin (Aspirin Chewable) 81 mg PO DAILY [facility] Last Admin: 07/17/17 09:39 Dose: 81 mg Heparin Sodium (Porcine) (Heparin) 5,000 units SC Q12 [facility] PRN Reason: Protocol Last Admin: 07/17/17 09:42 Dose: 5,000 units Sodium Chloride (Sodium Chloride 0.9%) 1,000 mls @ 75 mls/hr IV .[id number] [facility] Last Admin: 07/16/17 20:11 Dose: Not Given Levetiracetam (Keppra) 500 mg PO BID [facility] Last Admin: 07/17/17 09:40 Dose: 500 mg Levothyroxine Sodium (Synthroid) 25 mcg PO 0600 [facility] Last Admin: 07/17/17 06:01 Dose: 25 mcg Lorazepam (Ativan) 0.5 mg IVP Q8 PRN; Protocol PRN Reason: agitation/restlessness Last Admin: 07/16/17 14:15 Dose: 0.5 mg Lorazepam (Ativan) 0.25 mg PO TID PRN; Protocol PRN Reason: agitaiton/anxiety Metoprolol Tartrate (Lopressor) 25 mg PO BID [facility] Last Admin: 07/17/17 09:39 Dose: 25 mg Mirtazapine (Remeron) 7.5 mg PO HS PRN PRN Reason: restlessness and insomnia Pantoprazole Sodium (Protonix Ec Tab) 40 mg PO ACB [facility] Last Admin: 07/17/17 09:39 Dose: 40 mg Quetiapine Fumarate (Seroquel) 12.5 mg PO HS KATHERINE PRN Reason: Protocol Last Admin: 07/16/17 21:18 Dose: 12.5 mg - Labs Labs: 07/17/17 07:00 07/17/17 07:00 PT 12.7 SECONDS (9.4-12.5) H 07/13/17 19:10 INR 1.11 (0.93-1.08) H 07/13/17 19:10 APTT 32.8 Seconds (25.1-36.5) 07/13/17 19:10 Attending/Attestation - Attestation I have personally seen and examined this patient.: Yes I have fully participated in the care of the patient.: Yes I have reviewed all pertinent clinical information, including history, physical exam and plan: Yes Notes (Text): 07/17/17 10:48 Attending note; Patient seen and examined with resident. Patient is a 86-year-old male with a past medical history of CVA, ? dementia, vertigo, fall, gait instability is admitted with altered mental status. CT head showed old lacunar infarct with new ischemic changes in the frontal lobe since 2 years. Possible worsening dementia; Alzheimer's versus vascular dementia. Neurology evaluation appreciated. MRI could not be done due to agitation. Patient is medically stable. No complaints. Blood culture and urine culture is negative. No signs of infection. Agitation ;Psychiatric evaluation appreciated; started on by mouth Ativan and remeron. Patient is currently alert and awake. Not oriented to place and time. Not in any acute distress. But moves all extremities. No focal neurological deficit. Speech and swallow evaluation appreciated. Started on bite size diet with thin liquids. GI and DVT prophylaxis. PT recommended subacute rehabilitation. Case discussed with casework supervisor in detail for discharge planning.
[2017-07-18] MEDS: Sodium Chloride 0.9% 1,000 ML IV SCH ×2 (00:07)
[2017-07-18] MEDS: Levothyroxine 25 MCG TAB PO SCH (05:24)
--- NOTE | 2017-07-18 05:51 | CP.PCM.PN ---
Subjective - Date & Time of Evaluation Date of Evaluation: 07/18/17 Time of Evaluation: 06:10 - Subjective Subjective: Sleeping but easily awaken, lying in bed, able to open eyes to name calling, no distress denies chest pain, denies shortness of breath Reason for consultation: Cardiac evaluation, altered mental status, hypertension ,coronary artery disease,chronic vertigo,Atrial flutter, history of fall, AAA. Seen and examined by me and Dr. Crump Objective - Vital Signs/Intake and Output Vital Signs (last 24 hours): Temp Pulse Resp BP Pulse Ox 99.4 F 72 18 132/62 92 L 07/17/17 14:40 07/17/17 14:40 07/17/17 14:40 07/17/17 18:05 07/17/17 16:11 Intake and Output: 07/17/17 07/18/17 18:59 06:59 Intake Total 120 480 Balance 120 480 - Medications Medications: Current Medications Amlodipine Besylate (Norvasc) 10 mg PO DAILY [facility] Last Admin: 07/17/17 09:39 Dose: 10 mg Aspirin (Aspirin Chewable) 81 mg PO DAILY [facility] Last Admin: 07/17/17 09:39 Dose: 81 mg Heparin Sodium (Porcine) (Heparin) 5,000 units SC Q12 [facility] PRN Reason: Protocol Last Admin: 07/17/17 21:47 Dose: 5,000 units Sodium Chloride (Sodium Chloride 0.9%) 1,000 mls @ 75 mls/hr IV .[id number] [facility] Last Admin: 07/18/17 00:07 Dose: 75 mls/hr Levetiracetam (Keppra) 500 mg PO BID [facility] Last Admin: 07/17/17 18:05 Dose: 500 mg Levothyroxine Sodium (Synthroid) 25 mcg PO 0600 [facility] Last Admin: 07/18/17 05:24 Dose: 25 mcg Lorazepam (Ativan) 0.5 mg IVP Q8 PRN; Protocol PRN Reason: agitation/restlessness Last Admin: 07/16/17 14:15 Dose: 0.5 mg Lorazepam (Ativan) 0.25 mg PO TID PRN; Protocol PRN Reason: agitaiton/anxiety Metoprolol Tartrate (Lopressor) 25 mg PO BID [facility] Last Admin: 07/17/17 18:05 Dose: 25 mg Mirtazapine (Remeron) 7.5 mg PO HS PRN PRN Reason: restlessness and insomnia Pantoprazole Sodium (Protonix Ec Tab) 40 mg PO ACB [facility]ATHERINE Last Admin: 07/17/17 09:39 Dose: 40 mg Quetiapine Fumarate (Seroquel) 12.5 mg PO HS [facility]INE PRN Reason: Protocol Last Admin: 07/17/17 21:47 Dose: 12.5 mg - Labs Labs: 07/17/17 07:00 07/17/17 07:00 PT 12.7 SECONDS (9.4-12.5) H 07/13/17 19:10 INR 1.11 (0.93-1.08) H 07/13/17 19:10 APTT 32.8 Seconds (25.1-36.5) 07/13/17 19:10 - Constitutional Appears: No Acute Distress - ENT Exam ENT Exam: Mucous Membranes Moist - Respiratory Exam Respiratory Exam: Clear to Ausculation Bilateral, NORMAL BREATHING PATTERN - Cardiovascular Exam Cardiovascular Exam: +S1, +S2 - GI/Abdominal Exam GI & Abdominal Exam: Soft, Normal Bowel Sounds - Extremities Exam Extremities Exam: Normal Capillary Refill - Neurological Exam Neurological Exam: Alert, Awake - Psychiatric Exam Psychiatric exam: Normal Affect, Normal Mood - Skin Skin Exam: Intact, Normal Color, Warm Assessment and Plan - Assessment and Plan (Free Text) Assessment: An 86 year old male who was brought by EMS due to altered mental status. History of hypertension,coronary artery disease,chronic vertigo,atrial flutter, AAA, nephrolithiasis, syncopal episode, history of fall, GERD. Plan: Stable cardiac status Heart rate and blood pressure stable Troponin levels normal On ASA 81 mg daily,Norvasc 10 mg daily,Lopressor 25 mg BID Poor oral intake, IVF of NSS at 75 cc/hr. Continue current treatment Continue current medications Psychiatry on consult Will follow up Plan and treatment discussed with Dr. Crump
--- NOTE | 2017-07-18 06:52 | CP.PCM.PN ---
<Elie Garcia - Last Filed: 07/18/17 12:11> Subjective - Date & Time of Evaluation Date of Evaluation: 07/18/17 Time of Evaluation: 07:00 - Subjective Subjective: Medicine Note for Dr. Calvillo Patient seen and examined at bedside. No acute events overnight. Patient with echolalia. She is tolerating oral intake. ROS unattainable due to clinical condition. Objective - Vital Signs/Intake and Output Vital Signs (last 24 hours): Temp Pulse Resp BP Pulse Ox 99.4 F 72 18 132/62 92 L 07/17/17 14:40 07/17/17 14:40 07/17/17 14:40 07/17/17 18:05 07/17/17 16:11 Intake and Output: 07/17/17 07/18/17 18:59 06:59 Intake Total 120 480 Balance 120 480 - Medications Medications: Current Medications Amlodipine Besylate (Norvasc) 10 mg PO DAILY [facility] Last Admin: 07/17/17 09:39 Dose: 10 mg Aspirin (Aspirin Chewable) 81 mg PO DAILY [facility] Last Admin: 07/17/17 09:39 Dose: 81 mg Heparin Sodium (Porcine) (Heparin) 5,000 units SC Q12 [facility]ATH[facility]INE PRN Reason: Protocol Last Admin: 07/17/17 21:47 Dose: 5,000 units Sodium Chloride (Sodium Chloride 0.9%) 1,000 mls @ 75 mls/hr IV .[id number] [facility] Last Admin: 07/18/17 00:07 Dose: 75 mls/hr Levetiracetam (Keppra) 500 mg PO BID [facility] Last Admin: 07/17/17 18:05 Dose: 500 mg Levothyroxine Sodium (Synthroid) 25 mcg PO 0600 [facility] Last Admin: 07/18/17 05:24 Dose: 25 mcg Lorazepam (Ativan) 0.5 mg IVP Q8 PRN; Protocol PRN Reason: agitation/restlessness Last Admin: 07/16/17 14:15 Dose: 0.5 mg Lorazepam (Ativan) 0.25 mg PO TID PRN; Protocol PRN Reason: agitaiton/anxiety Metoprolol Tartrate (Lopressor) 25 mg PO BID [facility] Last Admin: 07/17/17 18:05 Dose: 25 mg Mirtazapine (Remeron) 7.5 mg PO HS PRN PRN Reason: restlessness and insomnia Pantoprazole Sodium (Protonix Ec Tab) 40 mg PO ACB [facility]ATHERINE Last Admin: 07/17/17 09:39 Dose: 40 mg Quetiapine Fumarate (Seroquel) 12.5 mg PO HS [facility]INE PRN Reason: Protocol Last Admin: 07/17/17 21:47 Dose: 12.5 mg - Labs Labs: 07/17/17 07:00 07/17/17 07:00 PT 12.7 SECONDS (9.4-12.5) H 07/13/17 19:10 INR 1.11 (0.93-1.08) H 07/13/17 19:10 APTT 32.8 Seconds (25.1-36.5) 07/13/17 19:10 - Additional Findings Additional findings: - Constitutional Appears: Non-toxic, No Acute Distress - Head Exam Head Exam: ATRAUMATIC, NORMOCEPHALIC - Eye Exam Eye Exam: EOMI, Normal appearance - ENT Exam ENT Exam: Mucous Membranes Moist - Neck Exam Neck Exam: absent: Lymphadenopathy - Respiratory Exam Respiratory Exam: Clear to Ausculation Bilateral, NORMAL BREATHING PATTERN. absent: Accessory Muscle Use, Rales, Rhonchi, Wheezes, Respiratory Distress - Cardiovascular Exam Cardiovascular Exam: REGULAR RHYTHM, +S1, +S2 - GI/Abdominal Exam GI & Abdominal Exam: Soft, Normal Bowel Sounds. absent: Distended, Firm, Guarding, Rigid, Tenderness - Extremities Exam Extremities Exam: absent: Calf Tenderness, Pedal Edema - Neurological Exam Neurological Exam: Alert, Awake. absent: Oriented x3 Additional comments: moving all four extremities. unable to follow simple commands. speech is mostly comprehensible - echolalia no facial droop. - Skin Skin Exam: Dry, Warm Assessment and Plan - Assessment and Plan (Free Text) Assessment: 86 M with a PMH hypertension, CAD, vertigo, atrial flutter, AAA, nephrolithiasis , GERD, fall, presents for AMS AMS delirum vs stroke, seizure, cardiac, infection, metabolic - Neurology consulted, Dr. Alfred - Brain MRI - f/u - patient has been unable to tolerate imaging so far - Keppra 500 mg BID - Seroquel 12.5 mg PO HS - Cardiology consulted, Dr. Crump - ECHO - unremarkable - Trop neg x 3 - CT head showed Atrophy and small vessel disease, no bleed; age indeterminate, right frontal ischemic change new since the prior study - RPR NR - blood cultures negative Subclinical hypothyroidism - Synthroid 25 mcg PO daily Dehydration - NS @75 cc Hypertension/CAD - Aspirin 81 mg PO daily - Norvasc 10 mg PO daily - Metoprolol Tart 25 mg PO BID Prophylactic Measures HHD - bite size, thin liquids DVT ppx- heparin GI ppx- protonix DISPO: Case management attempting to set patient up for long-term care or [facility]. Case discussed with Dr. Rajinder Garcia PGY1 <Alexx Calvillo - Last Filed: 07/18/17 14:18> Objective - Vital Signs/Intake and Output Vital Signs (last 24 hours): Temp Pulse Resp BP Pulse Ox 98.9 F 90 18 146/77 95 07/18/17 06:00 07/18/17 09:30 07/18/17 06:00 07/18/17 09:30 07/18/17 06:00 Intake and Output: 07/18/17 07/18/17 06:59 18:59 Intake Total 480 Balance 480 - Medications Medications: Current Medications Amlodipine Besylate (Norvasc) 10 mg PO DAILY [facility] Last Admin: 07/18/17 09:30 Dose: 10 mg Aspirin (Aspirin Chewable) 81 mg PO DAILY [facility] Last Admin: 07/18/17 09:30 Dose: 81 mg Heparin Sodium (Porcine) (Heparin) 5,000 units SC Q12 [facility] PRN Reason: Protocol Last Admin: 07/18/17 09:31 Dose: 5,000 units Sodium Chloride (Sodium Chloride 0.9%) 1,000 mls @ 75 mls/hr IV .[id number] [facility] Last Admin: 07/18/17 00:07 Dose: 75 mls/hr Levetiracetam (Keppra) 500 mg PO BID [facility] Last Admin: 07/18/17 09:30 Dose: 500 mg Levothyroxine Sodium (Synthroid) 25 mcg PO 0600 [facility] Last Admin: 07/18/17 05:24 Dose: 25 mcg Lorazepam (Ativan) 0.5 mg IVP Q8 PRN; Protocol PRN Reason: agitation/restlessness Last Admin: 07/16/17 14:15 Dose: 0.5 mg Lorazepam (Ativan) 0.25 mg PO TID PRN; Protocol PRN Reason: agitaiton/anxiety Metoprolol Tartrate (Lopressor) 25 mg PO BID [facility] Last Admin: 07/18/17 09:30 Dose: 25 mg Mirtazapine (Remeron) 7.5 mg PO HS PRN PRN Reason: restlessness and insomnia Pantoprazole Sodium (Protonix Ec Tab) 40 mg PO ACB [facility]ERINE Last Admin: 07/18/17 09:30 Dose: 40 mg Quetiapine Fumarate (Seroquel) 12.5 mg PO HS [facility] PRN Reason: Protocol Last Admin: 07/17/17 21:47 Dose: 12.5 mg - Labs Labs: 07/17/17 07:00 07/17/17 07:00 PT 12.7 SECONDS (9.4-12.5) H 07/13/17 19:10 INR 1.11 (0.93-1.08) H 07/13/17 19:10 APTT 32.8 Seconds (25.1-36.5) 07/13/17 19:10 Attending/Attestation - Attestation I have personally seen and examined this patient.: Yes I have fully participated in the care of the patient.: Yes I have reviewed all pertinent clinical information, including history, physical exam and plan: Yes Notes (Text): 07/18/17 14:13 86 year old male with past medical history of CVA and possible dementia who presented with altered mental status. CT head showed old lacunar infarct with new ischemic changes in the frontal lobe. MRI was ordered, however could not be done due to patient agitation. Neurology and psychiatry are following the patient. Will follow up with recommendations. PT recommended [facility]. Will follow up with manager of case and nephrology social worker. Alexx Calvillo MD Hospitalist.
--- NOTE | 2017-07-18 07:01 | CON ---
DATE: HISTORY OF PRESENT ILLNESS: The patient is an 86-year-old male with not known previous psychiatric history. The patient was admitted on the medical side for evaluation of altered mental status. The patient was found unresponsive on the floor. Psych consult was involved because the patient has episodes of agitation and restless behavior. This communications writer attempted to speak to the patient, but the patient seems to be medicated deeply sleeping and this communications writer was not able to wake him up. This communications writer reviewed previous history. The patient was seen by in 2014, and the patient was diagnosed with dementia. Today, this communications writer also discussed the case with neurologist, Dr. Alfred. Case was discussed in detail. PHYSICAL EXAMINATION: VITAL SIGNS: Reviewed. Temperature 97.6, blood pressure 148/79, respirations 20, and oxygen saturation of 98%. MEDICATIONS: Reviewed. The patient keeps refusing all of the medications so far. LABORATORY DATA: Reviewed, seems to be stable. TSH elevated. Toxicology negative for any substances. This communications writer reviewed head CT scan. Atrophy and small vessel disease, no bleed, age-indeterminate right frontal ischemic changes, new since prior study; as per neurologist, seems to be new and as per Neurology team most likely altered mental status was related to the new stroke. MENTAL STATUS EXAMINATION: This communications writer was not able to assess. IMPRESSION: Most likely, the patient has been in delirium stage and as per history, the patient has history of dementia and new diagnosed stroke. PLAN: This communications writer will discontinue Seroquel because if the patient is demented, second generation of psychiatry medication is not recommended. Small dose of Ativan 0.5 mg three times a day IV push as needed and Remeron 7.5 mg at the nighttime as needed for restless and agitated behavior. If the patient's mental status is stable, we will keep this regimen as of this over the weekend. Dr. Escobar will follow up on this patient. Should you have any questions, give me a call back. Thank you very much for letting me participate in care of your patient. Ester Meade MD
--- NOTE | 2017-07-18 09:08 | CP.PCM.PN ---
Subjective - Date & Time of Evaluation Date of Evaluation: 07/18/17 Time of Evaluation: 07:30 - Subjective Subjective: PGY2 Neuro Progress note for Dr. Alfred Patient seen and examined at bedside. Nursing reports no acute events overnight. Patient was sleeping comfortably when I saw him this morning but was uncooperative with exam and interview. As per nursing he continues to be confused and does not respond appropriately to any questioning. He is tolerating a PO diet, with assistance with feeding. ROS unattainable secondary to mental status Objective - Vital Signs/Intake and Output Vital Signs (last 24 hours): Temp Pulse Resp BP Pulse Ox 98.9 F 90 18 146/77 95 07/18/17 06:00 07/18/17 06:00 07/18/17 06:00 07/18/17 06:00 07/18/17 06:00 Intake and Output: 07/18/17 07/18/17 06:59 18:59 Intake Total 480 Balance 480 - Medications Medications: Current Medications Amlodipine Besylate (Norvasc) 10 mg PO DAILY [facility] Last Admin: 07/17/17 09:39 Dose: 10 mg Aspirin (Aspirin Chewable) 81 mg PO DAILY [facility] Last Admin: 07/17/17 09:39 Dose: 81 mg Heparin Sodium (Porcine) (Heparin) 5,000 units SC Q12 [facility] PRN Reason: Protocol Last Admin: 07/17/17 21:47 Dose: 5,000 units Sodium Chloride (Sodium Chloride 0.9%) 1,000 mls @ 75 mls/hr IV .[id number] [facility] Last Admin: 07/18/17 00:07 Dose: 75 mls/hr Levetiracetam (Keppra) 500 mg PO BID [facility] Last Admin: 07/17/17 18:05 Dose: 500 mg Levothyroxine Sodium (Synthroid) 25 mcg PO 0600 [facility] Last Admin: 07/18/17 05:24 Dose: 25 mcg Lorazepam (Ativan) 0.5 mg IVP Q8 PRN; Protocol PRN Reason: agitation/restlessness Last Admin: 07/16/17 14:15 Dose: 0.5 mg Lorazepam (Ativan) 0.25 mg PO TID PRN; Protocol PRN Reason: agitaiton/anxiety Metoprolol Tartrate (Lopressor) 25 mg PO BID [facility] Last Admin: 07/17/17 18:05 Dose: 25 mg Mirtazapine (Remeron) 7.5 mg PO HS PRN PRN Reason: restlessness and insomnia Pantoprazole Sodium (Protonix Ec Tab) 40 mg PO ACB [facility] Last Admin: 07/17/17 09:39 Dose: 40 mg Quetiapine Fumarate (Seroquel) 12.5 mg PO HS [facility] PRN Reason: Protocol Last Admin: 07/17/17 21:47 Dose: 12.5 mg - Labs Labs: 07/17/17 07:00 07/17/17 07:00 PT 12.7 SECONDS (9.4-12.5) H 07/13/17 19:10 INR 1.11 (0.93-1.08) H 07/13/17 19:10 APTT 32.8 Seconds (25.1-36.5) 07/13/17 19:10 - Constitutional Appears: Unkempt, Confused, Other (patient uncooperative today) Assessment and Plan - Assessment and Plan (Free Text) Assessment: 86yo male PMHx HTN, CAD, and vertigo was BIBA for AMS Plan: -Head CT on admission: atrophy and small vessel disease, no bleed; age indeterminate R frontal ischemic change new since prior study -Head CT 12/21/15: no acute intracranial hemorrhage. 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 Marked dilatation 3rd and lateral ventricles with normal caliber 4th ventricle. Rule out central volume loss vs chronic compensated obstructive hydrocephalus. NPH could be considered only if the clinical triad of dementia, ataxia, and incontinence present. -f/u MRI -f/u EEG -Echo unremarkable -RPR nonreactive -Keppra 500mg po bid and ASA 81mg qd -Seroquel 12.5mg po hs -Patient had an EEG in 03/2014 which was unremarkable -Speech/Swallow eval and treat -PT/OT -GI and DVT ppx -Neuro check q4 -Aspiration/Seizure/Fall risk precautions in place -recommend long-term/terminal gauger care for patient -Continue medical management Discussed with Dr. Tima Moses PGY2
[2017-07-18] MEDS: Pantoprazole 40 mg EC Tab PO SCH (09:30)
--- NOTE | 2017-07-18 10:48 | CP.PCM.PCO ---
Physician Communication Note - Physician Communication Note Physician Communication Note: psychiatric team signed off
[2017-07-18] MEDS ORDERED: Potassium Chloride 20 mEq/15 ml LIQ UD PO STA (12:15)
--- NOTE | 2017-07-18 14:26 | PQF CVATIA ---
Dr. Calvillo, This form is a permanent part of the medical record \ Patient admitted for AMS, noted to be possibly from progressive dementia. CT head showing age indeterminate right frontal ischemic changes new since prior study. Documentation from psychiatry and neurology unclear as to cause of AMS. Please clarify if a new stroke was POA or ruled out. Clarification of your documentation is requested to better reflect the severity of illness and intensity of treatment of your patient. Indicators present: [x] Altered mental status [] Aphasia [] Dysphagia [] Dysphasia [] Facial droop/numbness [] Gait disturbance [] Hemiparesis/plegia [] Speech impairment [] Weakness [x] Neuro Consult [x] CT/MRI Findings [] Other: [] Location in the medical record that reflects the above clinical findings: [] Treatment Provided: [] PHYSICIAN'S RESPONSE Based on your medical judgment of the clinical indicators outlined above, are you treating this patient for a known or suspected: [x] Acute Cerebrovascular Accident (CVA) Please specify type i.e.; embolic, hemorrhagic, ischemic. Please review CT head 07/18/17 Please specify the artery involved if known. [] Transient Ischemic Accident (TIA) [] Prolonged reversible ischemic neurological disorder [] Other, please indicate: [] [] If unable to determine, please check the box, sign and date. Present On Admission (POA) Indicator: [x] Present at the time of admission [] Not present at the time of admission [] Clinically Undetermined In responding to this query, please exercise your independent professional judgment. The fact that a question is asked does not imply that any particular answer is desired or expected. Thank you for your clarification on this documentation. If you have any questions please call:[ ] * Thank you, [ ]Tish Sepulveda [facility] #[id number] (please call if you have any questions) mold maker helper VÍCTOR
--- NOTE | 2017-07-18 15:38 | CT ---
PROCEDURE: CT HEAD WITHOUT CONTRAST. HISTORY: f/u on infarct COMPARISON: 07/13/2017 TECHNIQUE: Axial computed tomography images were obtained through the head/brain without intravenous contrast. Radiation dose: Total exam DLP = 911 mGy-cm. This CT exam was performed using one or more of the following dose reduction techniques: Automated exposure control, adjustment of the mA and/or kV according to patient size, and/or use of iterative reconstruction technique. FINDINGS: HEMORRHAGE: No intracranial hemorrhage. BRAIN: There is an acute or subacute infarct in the right frontal lobe measuring 3.5 cm in diameter. This has become more well-defined since the previous exam. Chronic microvascular changes and atrophy are also seen. VENTRICLES: Atrophy with ventriculomegaly CALVARIUM: Unremarkable. PARANASAL SINUSES: Unremarkable as visualized. No significant inflammatory changes. MASTOID AIR CELLS: Unremarkable as visualized. No inflammatory changes. OTHER FINDINGS: None. IMPRESSION: There is an acute or subacute infarct in the right frontal lobe measuring 3.5 cm in diameter. This has become more well-defined since the previous exam.
[2017-07-19] MEDS: Sodium Chloride 0.9% 1,000 ML IV SCH ×3 (00:53→19:21)
--- NOTE | 2017-07-19 05:54 | CP.PCM.PN ---
Subjective - Date & Time of Evaluation Date of Evaluation: 07/19/17 Time of Evaluation: 06:20 - Subjective Subjective: Awake,responds to questions, lying in bed, no distress denies chest pain, denies shortness of breath Reason for consultation: Cardiac evaluation, altered mental status, hypertension ,coronary artery disease,chronic vertigo,Atrial flutter, history of fall, AAA. Seen and examined by me and Dr. Crump Objective - Vital Signs/Intake and Output Vital Signs (last 24 hours): Temp Pulse Resp BP Pulse Ox 99.1 F 75 10 L 161/69 H 99 07/18/17 22:37 07/18/17 22:37 07/18/17 22:37 07/18/17 22:37 07/18/17 22:37 Intake and Output: 07/18/17 07/19/17 18:59 06:59 Intake Total 0 Balance 0 - Medications Medications: Current Medications Amlodipine Besylate (Norvasc) 10 mg PO DAILY [facility] Last Admin: 07/18/17 09:30 Dose: 10 mg Aspirin (Aspirin Chewable) 81 mg PO DAILY [facility] Last Admin: 07/18/17 09:30 Dose: 81 mg Atorvastatin Calcium (Lipitor) 20 mg PO DIN [facility] Last Admin: 07/18/17 17:17 Dose: 20 mg Heparin Sodium (Porcine) (Heparin) 5,000 units SC Q12 [facility] PRN Reason: Protocol Last Admin: 07/18/17 21:28 Dose: 5,000 units Sodium Chloride (Sodium Chloride 0.9%) 1,000 mls @ 75 mls/hr IV .[id number] [facility] Last Admin: 07/19/17 00:53 Dose: Not Given Levetiracetam (Keppra) 500 mg PO BID [facility] Last Admin: 07/18/17 17:17 Dose: 500 mg Levothyroxine Sodium (Synthroid) 25 mcg PO 0600 [facility] Last Admin: 07/18/17 05:24 Dose: 25 mcg Lorazepam (Ativan) 0.5 mg IVP Q8 PRN; Protocol PRN Reason: agitation/restlessness Last Admin: 07/16/17 14:15 Dose: 0.5 mg Lorazepam (Ativan) 0.25 mg PO TID PRN; Protocol PRN Reason: agitaiton/anxiety Metoprolol Tartrate (Lopressor) 25 mg PO BID [facility] Last Admin: 07/18/17 17:17 Dose: 25 mg Mirtazapine (Remeron) 7.5 mg PO HS PRN PRN Reason: restlessness and insomnia Pantoprazole Sodium (Protonix Ec Tab) 40 mg PO ACB [facility] Last Admin: 07/18/17 09:30 Dose: 40 mg Quetiapine Fumarate (Seroquel) 12.5 mg PO HS [facility] PRN Reason: Protocol Last Admin: 07/17/17 21:47 Dose: 12.5 mg - Labs Labs: 07/17/17 07:00 07/17/17 07:00 PT 12.7 SECONDS (9.4-12.5) H 07/13/17 19:10 INR 1.11 (0.93-1.08) H 07/13/17 19:10 APTT 32.8 Seconds (25.1-36.5) 07/13/17 19:10 - Constitutional Appears: No Acute Distress - Head Exam Head Exam: NORMOCEPHALIC - Respiratory Exam Respiratory Exam: Decreased Breath Sounds, NORMAL BREATHING PATTERN - Cardiovascular Exam Cardiovascular Exam: +S1, +S2 - GI/Abdominal Exam GI & Abdominal Exam: Soft, Normal Bowel Sounds - Extremities Exam Extremities Exam: Normal Capillary Refill - Neurological Exam Neurological Exam: Alert, Awake - Psychiatric Exam Psychiatric exam: Normal Affect, Normal Mood - Skin Skin Exam: Intact, Normal Color, Warm Assessment and Plan - Assessment and Plan (Free Text) Assessment: An 86 year old male who was brought by EMS due to altered mental status. History of hypertension,coronary artery disease,chronic vertigo,atrial flutter, AAA, nephrolithiasis, syncopal episode, history of fall, GERD. Plan: CT of head yesterday showed acute or subacute infarct on the right frontal lobe (3.5 cms) more defined than previous test. Being followed up by Neuro Stable cardiac status Heart rate and blood pressure stable On ASA 81 mg daily,Norvasc 10 mg daily,Lopressor 25 mg BID Fall precaution Aspiration precaution Continue current treatment Continue current medications Will follow up Plan and treatment discussed with Dr. Crump
[2017-07-19] MEDS: Levothyroxine 25 MCG TAB PO SCH (05:56)
[2017-07-19 07:34] LABS: BLOOD UREA NITROGEN 14 mg/dL (7-21); CALCIUM 8.5 mg/dL (8.4-10.5); GFR AFRICAN-AMERICAN > 60; GFR NON-AFRICAN AMERICAN > 60
--- NOTE | 2017-07-19 07:46 | CP.PCM.PN ---
Subjective - Date & Time of Evaluation Date of Evaluation: 07/19/17 Time of Evaluation: 08:30 - Subjective Subjective: PGY2 Neuro progress note for Dr. Nesbitt Patient seen and examined at bedside. Nursing reports no acute events overnight. Patient is more awake and alert this AM compared to yesterday when he was somnolent. He continues to only repeat what is said. He is feeding himself but only moves his RUE. ROS unobtinable secondary to clinical condition - patient demonstrating echolalia Objective - Vital Signs/Intake and Output Vital Signs (last 24 hours): Temp Pulse Resp BP Pulse Ox 99.1 F 75 10 L 161/69 H 99 07/18/17 22:37 07/18/17 22:37 07/18/17 22:37 07/18/17 22:37 07/18/17 22:37 Intake and Output: 07/19/17 07/19/17 06:59 18:59 Intake Total 60 Balance 60 - Medications Medications: Current Medications Amlodipine Besylate (Norvasc) 10 mg PO DAILY [facility] Last Admin: 07/18/17 09:30 Dose: 10 mg Aspirin (Aspirin Chewable) 81 mg PO DAILY [facility] Last Admin: 07/18/17 09:30 Dose: 81 mg Atorvastatin Calcium (Lipitor) 20 mg PO DIN [facility] Last Admin: 07/18/17 17:17 Dose: 20 mg Heparin Sodium (Porcine) (Heparin) 5,000 units SC Q12 [facility] PRN Reason: Protocol Last Admin: 07/18/17 21:28 Dose: 5,000 units Sodium Chloride (Sodium Chloride 0.9%) 1,000 mls @ 75 mls/hr IV .[id number] [facility] Last Admin: 07/19/17 00:53 Dose: Not Given Levetiracetam (Keppra) 500 mg PO BID [facility] Last Admin: 07/18/17 17:17 Dose: 500 mg Levothyroxine Sodium (Synthroid) 25 mcg PO 0600 [facility] Last Admin: 07/19/17 05:56 Dose: 25 mcg Lorazepam (Ativan) 0.5 mg IVP Q8 PRN; Protocol PRN Reason: agitation/restlessness Last Admin: 07/16/17 14:15 Dose: 0.5 mg Lorazepam (Ativan) 0.25 mg PO TID PRN; Protocol PRN Reason: agitaiton/anxiety Metoprolol Tartrate (Lopressor) 25 mg PO BID [facility] Last Admin: 07/18/17 17:17 Dose: 25 mg Mirtazapine (Remeron) 7.5 mg PO HS PRN PRN Reason: restlessness and insomnia Pantoprazole Sodium (Protonix Ec Tab) 40 mg PO ACB [facility] Last Admin: 07/18/17 09:30 Dose: 40 mg Quetiapine Fumarate (Seroquel) 12.5 mg PO HS [facility] PRN Reason: Protocol Last Admin: 07/17/17 21:47 Dose: 12.5 mg - Labs Labs: 07/17/17 07:00 07/19/17 06:15 PT 12.7 SECONDS (9.4-12.5) H 07/13/17 19:10 INR 1.11 (0.93-1.08) H 07/13/17 19:10 APTT 32.8 Seconds (25.1-36.5) 07/13/17 19:10 - Constitutional Appears: Confused, Chronically Ill - Head Exam Head Exam: ATRAUMATIC, NORMAL INSPECTION, NORMOCEPHALIC - Eye Exam Eye Exam: Normal appearance. absent: Conjunctival injection, Scleral icterus - ENT Exam ENT Exam: Mucous Membranes Moist - Respiratory Exam Respiratory Exam: NORMAL BREATHING PATTERN. absent: Accessory Muscle Use, Respiratory Distress - Cardiovascular Exam Cardiovascular Exam: +S1, +S2 - Rectal Exam Rectal Exam: Deferred - Extremities Exam Extremities Exam: Normal Capillary Refill, Normal Inspection. absent: Pedal Edema - Neurological Exam Neurological Exam: Alert, Awake. absent: Oriented x3 - Psychiatric Exam Psychiatric exam: Flat Affect - Skin Skin Exam: Dry, Intact Assessment and Plan - Assessment and Plan (Free Text) Assessment: 86yo male PMHx HTN, CAD, and vertigo was BIBA for AMS Plan: -transfer patient to TELE -f/u repeat head CT -f/u CTA -Head CT 07/18/17: acute or subaute infarct in the right frontal lobe measuring 3.5cm in diameter. This has become more well-defined since previous exam -Head CT 07/13/17: atrophy and small vessel disease, no bleed; age indeterminate R frontal ischemic change new since prior study -Head CT 12/21/15: no acute intracranial hemorrhage. 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 Marked dilatation 3rd and lateral ventricles with normal caliber 4th ventricle. Rule out central volume loss vs chronic compensated obstructive hydrocephalus. NPH could be considered only if the clinical triad of dementia, ataxia, and incontinence present. -f/u MRI -f/u EEG -Echo unremarkable -RPR nonreactive -Keppra 750mg po bid - f/u level in AM -ASA 81mg qd -Lipitor 20mg po hs -Seroquel 12.5mg po hs -BP control with norvasc and lopressor -Patient had an EEG in 03/2014 which was unremarkable -PT/OT -GI and DVT ppx -Neuro check q4 -Aspiration/Seizure/Fall risk precautions in place -recommend usp/manager long term care care for patient -Continue medical management Discussed with Dr. Laz Moses PGY2
[2017-07-19] MEDS: Pantoprazole 40 mg EC Tab PO SCH (10:12)
--- NOTE | 2017-07-19 10:26 | CARD ---
APPROVED REPORT EKG Measurement Heart [id number] <Conclusion> Sinus rhythm with premature atrial complexes Left anterior fascicular block Left ventricular hypertrophy with repolarization abnormality Abnormal ECG
--- NOTE | 2017-07-19 12:15 | CP.PCM.PN ---
<Dm Torres - Last Filed: 07/19/17 12:11> Subjective - Date & Time of Evaluation Date of Evaluation: 07/19/17 Time of Evaluation: 07:15 - Subjective Subjective: PGY1 Medicine Note for Dr. Calvillo Patient seen and examined this morning at bedside. No acute events overnight. Patient repeating back questions/statements that are spoken to him. He is able to follow some simple commands like squeezing left/right hand. He was observed speaking on a telephone with no one else on the other line. He is tolerating a PO diet, with assistance with feeding. ROS unattainable 2/2 mental status. Objective - Vital Signs/Intake and Output Vital Signs (last 24 hours): Temp Pulse Resp BP Pulse Ox 98.2 F 72 18 129/65 94 L 07/19/17 06:00 07/19/17 10:14 07/19/17 06:00 07/19/17 10:12 07/19/17 06:00 Intake and Output: 07/19/17 07/19/17 06:59 18:59 Intake Total 60 Balance 60 - Medications Medications: Current Medications Amlodipine Besylate (Norvasc) 10 mg PO DAILY [facility] Last Admin: 07/19/17 10:12 Dose: 10 mg Aspirin (Aspirin Chewable) 81 mg PO DAILY [facility] Last Admin: 07/19/17 10:14 Dose: 81 mg Atorvastatin Calcium (Lipitor) 20 mg PO DIN [facility] Last Admin: 07/18/17 17:17 Dose: 20 mg Heparin Sodium (Porcine) (Heparin) 5,000 units SC Q12 [facility] PRN Reason: Protocol Last Admin: 07/19/17 10:11 Dose: 5,000 units Sodium Chloride (Sodium Chloride 0.9%) 1,000 mls @ 75 mls/hr IV .[id number] [facility] Last Admin: 07/19/17 10:14 Dose: 75 mls/hr Levetiracetam (Keppra) 500 mg PO BID [facility] Last Admin: 07/19/17 10:14 Dose: 500 mg Levothyroxine Sodium (Synthroid) 25 mcg PO 0600 [facility] Last Admin: 07/19/17 05:56 Dose: 25 mcg Lorazepam (Ativan) 0.5 mg IVP Q8 PRN; Protocol PRN Reason: agitation/restlessness Last Admin: 07/16/17 14:15 Dose: 0.5 mg Lorazepam (Ativan) 0.25 mg PO TID PRN; Protocol PRN Reason: agitaiton/anxiety Metoprolol Tartrate (Lopressor) 25 mg PO BID [facility] Last Admin: 07/19/17 10:14 Dose: 25 mg Mirtazapine (Remeron) 7.5 mg PO HS PRN PRN Reason: restlessness and insomnia Pantoprazole Sodium (Protonix Ec Tab) 40 mg PO ACB [facility] Last Admin: 07/19/17 10:12 Dose: 40 mg Quetiapine Fumarate (Seroquel) 12.5 mg PO HS [facility] PRN Reason: Protocol Last Admin: 07/17/17 21:47 Dose: 12.5 mg - Labs Labs: 07/17/17 07:00 07/19/17 06:15 PT 12.7 SECONDS (9.4-12.5) H 07/13/17 19:10 INR 1.11 (0.93-1.08) H 07/13/17 19:10 APTT 32.8 Seconds (25.1-36.5) 07/13/17 19:10 - Constitutional Appears: Non-toxic, No Acute Distress - Head Exam Head Exam: ATRAUMATIC, NORMOCEPHALIC - Eye Exam Eye Exam: EOMI, Normal appearance, PERRL Pupil Exam: NORMAL ACCOMODATION - ENT Exam ENT Exam: Mucous Membranes Moist - Neck Exam Neck Exam: absent: Lymphadenopathy, Tenderness - Respiratory Exam Respiratory Exam: Clear to Ausculation Bilateral, NORMAL BREATHING PATTERN. absent: Accessory Muscle Use, Rales, Rhonchi, Wheezes, Respiratory Distress - Cardiovascular Exam Cardiovascular Exam: REGULAR RHYTHM, +S1, +S2 - GI/Abdominal Exam GI & Abdominal Exam: Soft, Normal Bowel Sounds. absent: Distended, Firm, Guarding, Rigid, Tenderness - Extremities Exam Extremities Exam: absent: Calf Tenderness, Pedal Edema - Neurological Exam Neurological Exam: Alert, Awake. absent: Oriented x3 Additional comments: able to follow simple commands - squeeze left/right hand. pt did not move lower extremities speech is mostly comprehensible - echolalia no facial droop. - Skin Skin Exam: Dry, Warm Assessment and Plan - Assessment and Plan (Free Text) Assessment: 86 year old male, with a PMH hypertension, CAD, vertigo, atrial flutter, AAA, nephrolithiasis, GERD, fall, presents for AMS - found to have an acute right sided frontal lobe infarct. Plan: Acute CVA - right sided frontal lobe - Neurology consulted, Dr. Alfred - Brain MRI - f/u - patient has been unable to tolerate imaging so far - EEG - f/u - Keppra 500 mg IVPB BID - switched to PO - Seroquel 12.5 mg PO HS - on hold - Cardiology consulted, Dr. Crump - ECHO - unremarkable - Trop neg x 3 - CT head showed Atrophy and small vessel disease, no bleed; age indeterminate, right frontal ischemic change new since the prior study - Repeat Head CT w/o 07/18 - There is an acute or subacute infarct in the right frontal lobe measuring 3.5 cm in diameter. This has become more well-defined since the previous exam. - TSH high, free T4 normal - RPR NR - ammonia low - blood cultures - no growth at 5 days - CK normal - Formal swallow eval recommended advance bite size and thin liquids. HHD ordered. Subclinical hypothyroidism - Synthroid 25 mcg PO daily - TSH high, free T4 normal - repeat in 3 months. Dehydration - NS @75 cc Hypertension/CAD - Aspirin 81 mg PO daily - Norvasc 10 mg PO daily - Metoprolol Tart 25 mg PO BID - Atorvastatin 20 mg PO DIN [facility] - bite size, thin liquids DVT ppx- heparin 5,000 units SC q12h GI ppx- protonix 40mg PO ACB DISPO: SW attempting to set patient up for moth exterminator care or ELIJAH. Case discussed with Dr. Rajinder Torres PGY1 <Alexx Calvillo - Last Filed: 07/19/17 12:53> Objective - Vital Signs/Intake and Output Vital Signs (last 24 hours): Temp Pulse Resp BP Pulse Ox 98.2 F 72 18 129/65 94 L 07/19/17 06:00 07/19/17 10:14 07/19/17 06:00 07/19/17 10:12 07/19/17 06:00 Intake and Output: 07/19/17 07/19/17 06:59 18:59 Intake Total 60 Balance 60 - Medications Medications: Current Medications Amlodipine Besylate (Norvasc) 10 mg PO DAILY [facility] Last Admin: 07/19/17 10:12 Dose: 10 mg Aspirin (Aspirin Chewable) 81 mg PO DAILY [facility] Last Admin: 07/19/17 10:14 Dose: 81 mg Atorvastatin Calcium (Lipitor) 20 mg PO DIN [facility] Last Admin: 07/18/17 17:17 Dose: 20 mg Heparin Sodium (Porcine) (Heparin) 5,000 units SC Q12 [facility] PRN Reason: Protocol Last Admin: 07/19/17 10:11 Dose: 5,000 units Sodium Chloride (Sodium Chloride 0.9%) 1,000 mls @ 75 mls/hr IV .[id number] [facility] Last Admin: 07/19/17 10:14 Dose: 75 mls/hr Levetiracetam (Keppra) 500 mg PO BID [facility] Last Admin: 07/19/17 10:14 Dose: 500 mg Levothyroxine Sodium (Synthroid) 25 mcg PO 0600 [facility] Last Admin: 07/19/17 05:56 Dose: 25 mcg Lorazepam (Ativan) 0.5 mg IVP Q8 PRN; Protocol PRN Reason: agitation/restlessness Last Admin: 07/16/17 14:15 Dose: 0.5 mg Lorazepam (Ativan) 0.25 mg PO TID PRN; Protocol PRN Reason: agitaiton/anxiety Metoprolol Tartrate (Lopressor) 25 mg PO BID [facility] Last Admin: 07/19/17 10:14 Dose: 25 mg Mirtazapine (Remeron) 7.5 mg PO HS PRN PRN Reason: restlessness and insomnia Pantoprazole Sodium (Protonix Ec Tab) 40 mg PO ACB [facility] Last Admin: 07/19/17 10:12 Dose: 40 mg Quetiapine Fumarate (Seroquel) 12.5 mg PO HS [facility] PRN Reason: Protocol Last Admin: 07/17/17 21:47 Dose: 12.5 mg - Labs Labs: 07/17/17 07:00 07/19/17 06:15 PT 12.7 SECONDS (9.4-12.5) H 07/13/17 19:10 INR 1.11 (0.93-1.08) H 07/13/17 19:10 APTT 32.8 Seconds (25.1-36.5) 07/13/17 19:10 Attending/Attestation - Attestation I have personally seen and examined this patient.: Yes I have fully participated in the care of the patient.: Yes I have reviewed all pertinent clinical information, including history, physical exam and plan: Yes Notes (Text): 07/19/17 12:52 86 year old male with past medical history of CVA and possible dementia who presented with altered mental status. CT head showed old lacunar infarct with new ischemic changes in the frontal lobe. MRI was ordered, however could not be done due to patient agitation. CT head was repeated yesterday which showed acute right CVA in frontal lobe. Continue with aspirin and statin. Neurology is following the patient. PT recommended [facility]IJ[facility]. Will follow up with caseworker protective services and social scientist. Alexx Calvillo MD Hospitalist.
[2017-07-19] MEDS ORDERED: Iohexol 350 MG/100 ML VIAL ONE (15:42)
[2017-07-20] MEDS: Sodium Chloride 0.9% 1,000 ML IV SCH ×4 (01:25→21:42)
[2017-07-20] MEDS: Levothyroxine 25 MCG TAB PO SCH (05:31)
--- NOTE | 2017-07-20 08:22 | CP.PCM.PN ---
Subjective - Date & Time of Evaluation Date of Evaluation: 07/20/17 Time of Evaluation: 08:30 - Subjective Subjective: PGY2 Neuro Progress note for Dr. Nesbitt Patient seen and examined at bedside. Nursing reports no acute events overnight. Patient continues to be confused and demonstrated echochlia. He is moving all 4 extremities but does not follow commands appropriately. He is tolerating a PO diet, with assistance with feeding. ROS unobtainable secondary to mentation. Objective - Vital Signs/Intake and Output Vital Signs (last 24 hours): Temp Pulse Resp BP Pulse Ox 98.1 F 82 16 140/67 98 07/20/17 06:00 07/20/17 06:00 07/20/17 06:00 07/20/17 06:00 07/20/17 06:00 Intake and Output: 07/20/17 07/20/17 06:59 18:59 Intake Total 975 Output Total 3 Balance 972 - Medications Medications: Current Medications Amlodipine Besylate (Norvasc) 10 mg PO DAILY [facility] Last Admin: 07/19/17 10:12 Dose: 10 mg Aspirin (Aspirin Chewable) 81 mg PO DAILY [facility] Last Admin: 07/19/17 10:14 Dose: 81 mg Atorvastatin Calcium (Lipitor) 20 mg PO DIN [facility] Last Admin: 07/19/17 17:10 Dose: 20 mg Heparin Sodium (Porcine) (Heparin) 5,000 units SC Q12 [facility] PRN Reason: Protocol Last Admin: 07/19/17 22:21 Dose: 5,000 units Sodium Chloride (Sodium Chloride 0.9%) 1,000 mls @ 75 mls/hr IV .[id number] [facility] Last Admin: 07/20/17 01:25 Dose: Not Given Levetiracetam (Keppra) 750 mg PO BID [facility] Last Admin: 07/19/17 17:10 Dose: 750 mg Levothyroxine Sodium (Synthroid) 25 mcg PO 0600 [facility] Last Admin: 07/20/17 05:31 Dose: 25 mcg Lorazepam (Ativan) 0.5 mg IVP Q8 PRN; Protocol PRN Reason: agitation/restlessness Last Admin: 07/16/17 14:15 Dose: 0.5 mg Lorazepam (Ativan) 0.25 mg PO TID PRN; Protocol PRN Reason: agitaiton/anxiety Metoprolol Tartrate (Lopressor) 25 mg PO BID [facility] Last Admin: 07/19/17 17:10 Dose: 25 mg Mirtazapine (Remeron) 7.5 mg PO HS PRN PRN Reason: restlessness and insomnia Pantoprazole Sodium (Protonix Ec Tab) 40 mg PO ACB [facility] Last Admin: 07/19/17 10:12 Dose: 40 mg Quetiapine Fumarate (Seroquel) 12.5 mg PO HS [facility] PRN Reason: Protocol Last Admin: 07/17/17 21:47 Dose: 12.5 mg - Labs Labs: 07/17/17 07:00 07/19/17 06:15 PT 12.7 SECONDS (9.4-12.5) H 07/13/17 19:10 INR 1.11 (0.93-1.08) H 07/13/17 19:10 APTT 32.8 Seconds (25.1-36.5) 07/13/17 19:10 - Constitutional Appears: Confused - Neurological Exam Neurological Exam: Alert, Awake. absent: Oriented x3 Additional comments: moving all 4 extremities responds to pain appropriately in all 4 extremities - Psychiatric Exam Psychiatric exam: Flat Affect - Skin Skin Exam: Dry, Intact Assessment and Plan - Assessment and Plan (Free Text) Assessment: 86yo male PMHx HTN, CAD, and vertigo was BIBA for AMS Plan: -Head CT 07/20/17: right frontal infarct seen previously is less well-defined on the current exam. Chronic microvascular changes are seen in the periventricular white matter. There is moderate atrophy. -CTA head/neck 07/20/17: Right carotid: long segment calcified plaque in the root right proximal ICA with a severe degree of stenosis measuring 70-94%. Severe tortuosity. Left carotid: calcified plaque in the left proximal ICA with a short-segment flap-like moderate stenosis measuring 50-69%. Severe tortuosity. Brain unremarkable. -Head CT 07/18/17: acute or subaute infarct in the right frontal lobe measuring 3.5cm in diameter. This has become more well-defined since previous exam -Head CT 07/13/17: atrophy and small vessel disease, no bleed; age indeterminate R frontal ischemic change new since prior study -Head CT 12/21/15: no acute intracranial hemorrhage. 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 Marked dilatation 3rd and lateral ventricles with normal caliber 4th ventricle. Rule out central volume loss vs chronic compensated obstructive hydrocephalus. NPH could be considered only if the clinical triad of dementia, ataxia, and incontinence present. -f/u MRI -f/u EEG -Echo unremarkable -RPR nonreactive -Keppra 750mg po bid - f/u level in AM -ASA 81mg qd -Lipitor 20mg po hs -Seroquel 12.5mg po hs -BP control with norvasc and lopressor -Patient had an EEG in 03/2014 which was unremarkable -PT/OT -GI and DVT ppx -Neuro check q4 -Aspiration/Seizure/Fall risk precautions in place -Neuointerventional consulted for ICA stenosis- reccs appreciated -recommend senior living/alf care for patient -Continue medical management Discussed with Dr. Laz Moses PGY2
--- NOTE | 2017-07-20 08:52 | CT ---
PROCEDURE: CT HEAD WITHOUT CONTRAST. HISTORY: ams COMPARISON: 07/18/2017 CT TECHNIQUE: Axial computed tomography images were obtained through the head/brain without intravenous contrast. Radiation dose: Total exam DLP = 941 mGy-cm. This CT exam was performed using one or more of the following dose reduction techniques: Automated exposure control, adjustment of the mA and/or kV according to patient size, and/or use of iterative reconstruction technique. FINDINGS: HEMORRHAGE: No intracranial hemorrhage. BRAIN: The right frontal infarct seen previously is less well-defined on the current exam. Chronic microvascular changes are seen in the periventricular white matter. There is moderate atrophy. VENTRICLES: Unremarkable. No hydrocephalus. CALVARIUM: Unremarkable. PARANASAL SINUSES: Unremarkable as visualized. No significant inflammatory changes. MASTOID AIR CELLS: Unremarkable as visualized. No inflammatory changes. OTHER FINDINGS: None. IMPRESSION: The right frontal infarct seen previously is less well-defined on the current exam. Chronic microvascular changes are seen in the periventricular white matter. There is moderate atrophy.
--- NOTE | 2017-07-20 08:52 | CP.PCM.PN ---
<Dm Torres - Last Filed: 07/20/17 14:00> Subjective - Date & Time of Evaluation Date of Evaluation: 07/20/17 Time of Evaluation: 07:00 - Subjective Subjective: PGY1 Medicine Note for Dr. Calvillo Patient seen and examined this morning at bedside. No acute events overnight. Patient was transferred to telemetry floor yesterday due to confirmation of acute/subacute CVA. Patient was resting comfortably in bed. He was seen moving all four extremities. He is alert and awake but not following commands today. He is still repeating simple phrases that are spoken to him. He is tolerating a PO diet, with assistance with feeding. ROS unattainable 2/2 mental status. Objective - Vital Signs/Intake and Output Vital Signs (last 24 hours): Temp Pulse Resp BP Pulse Ox 98.1 F 82 16 140/67 98 07/20/17 06:00 07/20/17 06:00 07/20/17 06:00 07/20/17 06:00 07/20/17 06:00 Intake and Output: 07/20/17 07/20/17 06:59 18:59 Intake Total 975 Output Total 3 Balance 972 - Medications Medications: Current Medications Amlodipine Besylate (Norvasc) 10 mg PO DAILY [facility] Last Admin: 07/19/17 10:12 Dose: 10 mg Aspirin (Aspirin Chewable) 81 mg PO DAILY [facility] Last Admin: 07/19/17 10:14 Dose: 81 mg Atorvastatin Calcium (Lipitor) 20 mg PO DIN [facility] Last Admin: 07/19/17 17:10 Dose: 20 mg Heparin Sodium (Porcine) (Heparin) 5,000 units SC Q12 [facility] PRN Reason: Protocol Last Admin: 07/19/17 22:21 Dose: 5,000 units Sodium Chloride (Sodium Chloride 0.9%) 1,000 mls @ 75 mls/hr IV .[id number] [facility] Last Admin: 07/20/17 01:25 Dose: Not Given Levetiracetam (Keppra) 750 mg PO BID [facility] Last Admin: 07/19/17 17:10 Dose: 750 mg Levothyroxine Sodium (Synthroid) 25 mcg PO 0600 [facility] Last Admin: 07/20/17 05:31 Dose: 25 mcg Lorazepam (Ativan) 0.5 mg IVP Q8 PRN; Protocol PRN Reason: agitation/restlessness Last Admin: 07/16/17 14:15 Dose: 0.5 mg Lorazepam (Ativan) 0.25 mg PO TID PRN; Protocol PRN Reason: agitaiton/anxiety Metoprolol Tartrate (Lopressor) 25 mg PO BID [facility] Last Admin: 07/19/17 17:10 Dose: 25 mg Mirtazapine (Remeron) 7.5 mg PO HS PRN PRN Reason: restlessness and insomnia Pantoprazole Sodium (Protonix Ec Tab) 40 mg PO ACB [facility] Last Admin: 07/19/17 10:12 Dose: 40 mg Quetiapine Fumarate (Seroquel) 12.5 mg PO HS [facility] PRN Reason: Protocol Last Admin: 07/17/17 21:47 Dose: 12.5 mg - Labs Labs: 07/17/17 07:00 07/19/17 06:15 PT 12.7 SECONDS (9.4-12.5) H 07/13/17 19:10 INR 1.11 (0.93-1.08) H 07/13/17 19:10 APTT 32.8 Seconds (25.1-36.5) 07/13/17 19:10 - Constitutional Appears: Non-toxic, No Acute Distress, Confused - Head Exam Head Exam: ATRAUMATIC, NORMOCEPHALIC - Eye Exam Eye Exam: EOMI, Normal appearance, PERRL Pupil Exam: NORMAL ACCOMODATION - ENT Exam ENT Exam: Mucous Membranes Moist - Neck Exam Neck Exam: absent: Lymphadenopathy - Respiratory Exam Respiratory Exam: Clear to Ausculation Bilateral, NORMAL BREATHING PATTERN. absent: Accessory Muscle Use, Rales, Rhonchi, Wheezes, Respiratory Distress - Cardiovascular Exam Cardiovascular Exam: REGULAR RHYTHM, +S1, +S2 - GI/Abdominal Exam GI & Abdominal Exam: Soft, Normal Bowel Sounds. absent: Distended, Firm, Guarding, Rigid, Tenderness - Extremities Exam Extremities Exam: absent: Calf Tenderness, Pedal Edema - Neurological Exam Neurological Exam: Alert, Awake. absent: Oriented x3 Additional comments: observed moving all four extremities. Does not follow simple commands (ie. squeeze left hand, move right foot) - Psychiatric Exam Psychiatric exam: Flat Affect - Skin Skin Exam: Dry, Warm Assessment and Plan - Assessment and Plan (Free Text) Assessment: 86 year old male, with a PMH hypertension, CAD, vertigo, atrial flutter, AAA, nephrolithiasis, GERD, fall, presents for AMS - found to have an acute right sided frontal lobe infarct. Plan: 86 year old male, with a PMH hypertension, CAD, vertigo, atrial flutter, AAA, nephrolithiasis, GERD, fall, presents for AMS - found to have an acute right sided frontal lobe infarct. Plan: Acute CVA - right sided frontal lobe - Neurology consulted, Dr. Alfred - Brain MRI - f/u - patient has been unable to tolerate imaging so far - EEG - f/u - Keppra 500 mg IVPB BID - switched to PO - Seroquel 12.5 mg PO HS - on hold - Cardiology consulted, Dr. Crump - ECHO - unremarkable - Trop neg x 3 - CT head showed Atrophy and small vessel disease, no bleed; age indeterminate, right frontal ischemic change new since the prior study - Repeat Head CT w/o 07/18 - There is an acute or subacute infarct in the right frontal lobe measuring 3.5 cm in diameter. This has become more well-defined since the previous exam. - Repeat Head CT w/o 07/20 - The right frontal infarct seen previously is less well-defined on the current exam. Chronic microvascular changes are seen in the periventricular white matter. There is moderate atrophy - Head and Neck CTA 07/20 - Unremarkable CT Angiography of the Brain - TSH high, free T4 normal - RPR NR - ammonia low - blood cultures - no growth at 5 days - CK normal - Formal swallow eval recommended advance bite size and thin liquids. HHD ordered. Subclinical hypothyroidism - Synthroid 25 mcg PO daily - TSH high, free T4 normal - repeat in 3 months. Dehydration - NS @75 cc Hypertension/CAD - Aspirin 81 mg PO daily - Norvasc 10 mg PO daily - Metoprolol Tart 25 mg PO BID - Atorvastatin 20 mg PO DIN [facility] - bite size, thin liquids DVT ppx- heparin 5,000 units SC q12h GI ppx- protonix 40mg PO ACB DISPO: SW attempting to set patient up for job specification writer care or ELIJAH. No update at this time. Case discussed with Dr. Rajinder Torres PGY1 <Alexx Calvillo - Last Filed: 07/20/17 15:18> Objective - Vital Signs/Intake and Output Vital Signs (last 24 hours): Temp Pulse Resp BP Pulse Ox 97.6 F 72 20 130/80 98 07/20/17 11:33 07/20/17 11:33 07/20/17 11:33 07/20/17 11:33 07/20/17 06:00 Intake and Output: 07/20/17 07/20/17 06:59 18:59 Intake Total 975 240 Output Total 3 Balance 972 240 - Medications Medications: Current Medications Amlodipine Besylate (Norvasc) 10 mg PO DAILY [facility] Last Admin: 07/20/17 10:17 Dose: 10 mg Aspirin (Aspirin Chewable) 81 mg PO DAILY [facility] Last Admin: 07/20/17 10:18 Dose: 81 mg Atorvastatin Calcium (Lipitor) 20 mg PO DIN [facility] Last Admin: 07/19/17 17:10 Dose: 20 mg Heparin Sodium (Porcine) (Heparin) 5,000 units SC Q12 [facility] PRN Reason: Protocol Last Admin: 07/20/17 10:18 Dose: 5,000 units Sodium Chloride (Sodium Chloride 0.9%) 1,000 mls @ 75 mls/hr IV .[id number] [facility] Last Admin: 07/20/17 14:28 Dose: Not Given Levetiracetam (Keppra) 750 mg PO BID [facility] Last Admin: 07/20/17 10:17 Dose: 750 mg Levothyroxine Sodium (Synthroid) 25 mcg PO 0600 [facility] Last Admin: 07/20/17 05:31 Dose: 25 mcg Lorazepam (Ativan) 0.5 mg IVP Q8 PRN; Protocol PRN Reason: agitation/restlessness Last Admin: 07/16/17 14:15 Dose: 0.5 mg Lorazepam (Ativan) 0.25 mg PO TID PRN; Protocol PRN Reason: agitaiton/anxiety Metoprolol Tartrate (Lopressor) 25 mg PO BID [facility] Last Admin: 07/20/17 10:18 Dose: 25 mg Mirtazapine (Remeron) 7.5 mg PO HS PRN PRN Reason: restlessness and insomnia Pantoprazole Sodium (Protonix Ec Tab) 40 mg PO ACB [facility] Last Admin: 07/20/17 10:18 Dose: 40 mg Quetiapine Fumarate (Seroquel) 12.5 mg PO HS [facility] PRN Reason: Protocol Last Admin: 07/17/17 21:47 Dose: 12.5 mg - Labs Labs: 07/20/17 11:00 07/20/17 11:00 PT 12.7 SECONDS (9.4-12.5) H 07/13/17 19:10 INR 1.11 (0.93-1.08) H 07/13/17 19:10 APTT 32.8 Seconds (25.1-36.5) 07/13/17 19:10 Attending/Attestation - Attestation I have personally seen and examined this patient.: Yes I have fully participated in the care of the patient.: Yes I have reviewed all pertinent clinical information, including history, physical exam and plan: Yes Notes (Text): 07/20/17 15:17 86 year old male with past medical history of CVA and possible dementia who presented with altered mental status. CT head showed old lacunar infarct with new ischemic changes in the frontal lobe. MRI was ordered, however could not be done due to patient agitation. CT head was repeated earlier this week which showed acute right CVA in frontal lobe. Continue with aspirin and statin. Neurology is following the patient. Will replete and repeat potassium. PT recommended ELIJAH. Will follow up with watch case polisher and social media sr strategy manager. Alexx Calvillo MD Hospitalist.
--- NOTE | 2017-07-20 10:04 | CT ---
PROCEDURE: CT Angiography of the neck with contrast HISTORY: acute vs subacute CVA COMPARISON: None available. TECHNIQUE: Contiguous axial images of the neck were obtained from the level of the skull-base to the superior mediastinum in the arteriographic phase of enhancement. Coronal and sagittal reformats or also generated. IV contrast dose: 100 cc of Omni 350 Radiation Dose - DLP: 503 mGy-cm This CT exam was performed using one or more of the following dose reduction techniques: Automated exposure control, adjustment of the mA and/or kV according to patient size, and/or use of iterative reconstruction technique. FINDINGS: RIGHT CAROTID ARTERIES: There is a long segment calcified plaque in the root right proximal internal carotid with a severe degree of stenosis measuring between 70 and 94 percent. Severe tortuosity LEFT CAROTID ARTERIES: There is a calcified plaque in the left proximal internal carotid with a short-segment flap-like moderate stenosis measuring 50-69 percent. There is severe tortuosity VERTEBRAL ARTERIES: Right Vertebral Artery: Normal. Left Vertebral Artery: Normal. OTHER FINDINGS: The report concurs with the preliminary [facility] report Atherosclerotic changes are also seen in the aortic arch with mural thrombus and calcified plaque. There is no stenosis at the vessel origins. IMPRESSION: Right carotid.There is a long segment calcified plaque in the root right proximal internal carotid with a severe degree of stenosis measuring between 70 and 94 percent. Severe tortuosity Left carotid. There is a calcified plaque in the left proximal internal carotid with a short-segment flap-like moderate stenosis measuring 50-69 percent. There is severe tortuosity CT Angiography of the Brain. HISTORY: acute vs subacute CVA COMPARISON: None available. TECHNIQUE: CT angiography of the intracranial arteries was performed. Coronal and sagittal maximum intensity projection reformated images were generated. This CT exam was performed using one or more of the following dose reduction techniques: Automated exposure control, adjustment of the mA and/or kV according to patient size, and/or use of iterative reconstruction technique. FINDINGS: INTERNAL CEREBRAL ARTERIES: Unremarkable. The skull base, petrous, cavernous and supraclinoid segments are bilaterally widely patent. ANTERIOR CEREBRAL ARTERIES: Unremarkable. A1 and A2 segments are widely patent. Smaller distal branches unremarkable, as visualized. MIDDLE CEREBRAL ARTERIES: Unremarkable. M1 and M2 segments are widely patent. Perisylvian branches grossly symmetric. POSTERIOR CIRCULATION: Basilar Artery: Unremarkable. Distal Vertebral Arteries: Unremarkable. Posterior Cerebral Arteries: Unremarkable. Posterior Inferior Cerebellar Arteries: Unremarkable. ANEURYSM/ VASCULAR MALFORMATIONS: None. OTHER FINDINGS: None. IMPRESSION: Unremarkable CT Angiography of the Brain.
[2017-07-20] MEDS: Pantoprazole 40 mg EC Tab PO SCH (10:18)
[2017-07-20 11:27] LABS: BASO # 0.03 K/mm3 (0.0-2.0); BASO % 0.3 % (0.0-3.0); EOS # 0.2 (0.0-0.7); GRAN # 7.26 (1.4-6.5); GRAN % 71.7 % (50.0-68.0); HEMOGLOBIN 13.9 g/dL (14.0-18.0); LYMPH # 1.3 (1.2-3.4); LYMPH % 12.8 % (22.0-35.0); MEAN CELL VOLUME 87.9 fl (80.0-105.0); MEAN CORPUSCULAR HEMOGLOBIN 29.6 pg (25.0-35.0); MEAN CORPUSCULAR HGB CONC 33.7 g/dl (31.0-37.0); MEAN PLATELET VOLUME 10.2 fl (7.0-11.0); MONO # 1.3 (0.1-0.6); MONO % 13.2 % (1.0-6.0); RBC 4.7 10^6/uL (3.5-6.1); RED CELL DISTRIBUTION WIDTH 12.9 % (11.5-14.5); WHITE BLOOD COUNT 10.1 10^3/ul (4.5-11.0)
[2017-07-20 11:43] LABS: ALBUMIN 2.9 g/dL (3.0-4.8); ALT/SGPT 49 U/L (7-56); AST/SGOT 44 U/L (17-59); BLOOD UREA NITROGEN 18 mg/dL (7-21); CALCIUM 8.5 mg/dL (8.4-10.5); GFR AFRICAN-AMERICAN > 60; GFR NON-AFRICAN AMERICAN > 60
--- NOTE | 2017-07-20 12:00 | CARD ---
APPROVED REPORT EKG Measurement Heart [id number] <Conclusion> Normal sinus rhythm Possible Left atrial enlargement Left anterior fascicular block Left ventricular hypertrophy with repolarization abnormality Abnormal ECG
[2017-07-20] MEDS ORDERED: Potassium Chloride 20 mEq ER Tab PO ONE (13:22)
--- NOTE | 2017-07-20 13:54 | PN ---
DATE: 07/20/2017 LOCATION: The patient in room 262, bed 2. REASON FOR CONSULTATION: Altered mental status, possible CVA, hypertension, coronary artery disease, atrial flutter, history of fall, history of AAA. SUBJECTIVE: The patient is lying flat in bed without any chest pain, shortness of breath or palpitation. The patient is answering question, but keeps repeating the words. PHYSICAL EXAMINATION: VITAL SIGNS: Blood pressure 140/67, respirations 16, pulse 82, temperature 98.1. HEENT: Head is normocephalic. Eyes: Pupils normal. Conjunctivae normal. Nose and throat normal. NECK: JVP low. Carotids equal. THORAX: AP diameter normal. LUNGS: Clear. CARDIOVASCULAR: S1 and S2. ABDOMEN: Soft. No tenderness. No organomegaly. EXTREMITIES: No clubbing. No cyanosis. LABORATORY DATA: WBC 7.3, hemoglobin 13.8, hematocrit 41.3, platelets 256. Sodium 139, potassium 3.8, BUN 14, creatinine 0.7, total protein 5.4, albumin 2.8. Head and neck CTA was done yesterday, it was unremarkable. The patient had a CAT scan of the head repeated yesterday. CAT scan was repeated yesterday. It showed right frontal infarct seen previously. It is less well defined on the current exam. Chronic microvascular changes are seen in the periventricular white matter. Moderate atrophy. DIAGNOSES: Altered mental status, possible cerebrovascular accident, history of hypertension, coronary artery disease, chronic vertigo, atrial flutter, abdominal aortic aneurysm, nephrolithiasis, syncopal episode, history of falls, gastroesophageal reflux disease. PLAN: Aspirations precautions. Continue current therapy. Heart rate and blood pressure stable. Cardiac status clinically seemed to be stable. The patient is on aspirin 81 mg daily, heparin 5000 units subcu every 12 hours, Keppra 750 b.i.d., atorvastatin 20 daily, metoprolol 25 b.i.d., amlodipine 10 daily, Protonix 40 daily, Remeron 7.5 mg p.o. at bedtime p.r.n. The patient is also on levothyroxine 25 mcg p.o. daily. We will continue present therapy. We will follow with you. Kory Li MD [facility] # [id number]
[2017-07-20] MEDS: Divalproex 500 mg DR(BID formulation) PO SCH (17:24)
[2017-07-20] MEDS ORDERED: Divalproex 250 mg DR (BID formulation) PO SCH (18:00)
[2017-07-21] MEDS: Levothyroxine 25 MCG TAB PO SCH (05:09)
[2017-07-21 06:48] LABS: BASO # 0.02 K/mm3 (0.0-2.0); BASO % 0.2 % (0.0-3.0); EOS # 0.2 (0.0-0.7); EOS % 1.8 % (1.5-5.0); GRAN # 8.12 (1.4-6.5); GRAN % 74.8 % (50.0-68.0); HEMOGLOBIN 13.6 g/dL (14.0-18.0); LYMPH # 1.3 (1.2-3.4); LYMPH % 11.5 % (22.0-35.0); MEAN CELL VOLUME 86.3 fl (80.0-105.0); MEAN CORPUSCULAR HEMOGLOBIN 28.8 pg (25.0-35.0); MEAN CORPUSCULAR HGB CONC 33.3 g/dl (31.0-37.0); MEAN PLATELET VOLUME 10.1 fl (7.0-11.0); MONO # 1.3 (0.1-0.6); MONO % 11.7 % (1.0-6.0); RBC 4.73 10^6/uL (3.5-6.1); RED CELL DISTRIBUTION WIDTH 12.8 % (11.5-14.5); WHITE BLOOD COUNT 10.9 10^3/ul (4.5-11.0)
[2017-07-21 07:11] LABS: ALBUMIN 2.8 g/dL (3.0-4.8); ALT/SGPT 49 U/L (7-56); AST/SGOT 42 U/L (17-59); BLOOD UREA NITROGEN 18 mg/dL (7-21); CALCIUM 8.4 mg/dL (8.4-10.5); GFR AFRICAN-AMERICAN > 60; GFR NON-AFRICAN AMERICAN > 60
--- NOTE | 2017-07-21 08:37 | CP.PCM.PN ---
Subjective - Date & Time of Evaluation Date of Evaluation: 07/21/17 Time of Evaluation: 06:10 - Subjective Subjective: Awake,confuse, lying in bed, no distress Reason for consultation: Cardiac evaluation, altered mental status, hypertension ,coronary artery disease,chronic vertigo,Atrial flutter, history of fall, AAA. Seen and examined by me and Dr. Crump Objective - Vital Signs/Intake and Output Vital Signs (last 24 hours): Temp Pulse Resp BP Pulse Ox 98.8 F 87 18 150/82 93 L 07/21/17 06:00 07/21/17 06:00 07/21/17 06:00 07/21/17 06:00 07/21/17 06:00 Intake and Output: 07/21/17 07/21/17 06:59 18:59 Intake Total 975 Balance 975 - Medications Medications: Current Medications Amlodipine Besylate (Norvasc) 10 mg PO DAILY [facility] Last Admin: 07/20/17 10:17 Dose: 10 mg Aspirin (Aspirin Chewable) 81 mg PO DAILY [facility] Last Admin: 07/20/17 10:18 Dose: 81 mg Atorvastatin Calcium (Lipitor) 20 mg PO DIN [facility] Last Admin: 07/20/17 17:24 Dose: 20 mg Divalproex Sodium (Depakote Dr(*Bid*)) 500 mg PO BID [facility] PRN Reason: Protocol Last Admin: 07/20/17 17:24 Dose: 500 mg Heparin Sodium (Porcine) (Heparin) 5,000 units SC Q12 [facility] PRN Reason: Protocol Last Admin: 07/20/17 21:36 Dose: 5,000 units Sodium Chloride (Sodium Chloride 0.9%) 1,000 mls @ 75 mls/hr IV .[id number] [facility] Last Admin: 07/20/17 21:42 Dose: 75 mls/hr Levothyroxine Sodium (Synthroid) 25 mcg PO 0600 [facility] Last Admin: 07/21/17 05:09 Dose: 25 mcg Lorazepam (Ativan) 0.5 mg IVP Q8 PRN; Protocol PRN Reason: agitation/restlessness Last Admin: 07/16/17 14:15 Dose: 0.5 mg Lorazepam (Ativan) 0.25 mg PO TID PRN; Protocol PRN Reason: agitaiton/anxiety Metoprolol Tartrate (Lopressor) 25 mg PO BID [facility] Last Admin: 07/20/17 17:24 Dose: 25 mg Mirtazapine (Remeron) 7.5 mg PO HS PRN PRN Reason: restlessness and insomnia Pantoprazole Sodium (Protonix Ec Tab) 40 mg PO ACB [facility] Last Admin: 07/20/17 10:18 Dose: 40 mg Quetiapine Fumarate (Seroquel) 12.5 mg PO HS [facility] PRN Reason: Protocol Last Admin: 07/17/17 21:47 Dose: 12.5 mg - Labs Labs: 07/21/17 06:20 07/21/17 06:20 PT 12.7 SECONDS (9.4-12.5) H 07/13/17 19:10 INR 1.11 (0.93-1.08) H 07/13/17 19:10 APTT 32.8 Seconds (25.1-36.5) 07/13/17 19:10 - Constitutional Appears: No Acute Distress - ENT Exam ENT Exam: Mucous Membranes Dry - Respiratory Exam Respiratory Exam: Decreased Breath Sounds, NORMAL BREATHING PATTERN - Cardiovascular Exam Cardiovascular Exam: +S1, +S2 - GI/Abdominal Exam GI & Abdominal Exam: Soft, Normal Bowel Sounds - Extremities Exam Extremities Exam: Normal Capillary Refill - Neurological Exam Neurological Exam: Awake Additional comments: confuse - Psychiatric Exam Psychiatric exam: Anxious - Skin Skin Exam: Normal Color, Warm Assessment and Plan - Assessment and Plan (Free Text) Assessment: An 86 year old male who was brought by EMS due to altered mental status. History of hypertension,coronary artery disease,chronic vertigo,atrial flutter, AAA, nephrolithiasis, syncopal episode, history of fall, GERD.right frontal lobe infarct (CT of head) Plan: Awake but confuse, move all extremities Does not follow commands 07/18 CT of head frontal lobe infarct 3.5 cms, repeat yesterday 07/20 less defined Stable cardiac status Heart rate and blood pressure stable On ASA 81 mg daily,Norvasc 10 mg daily,Lopressor 25 mg BID Aspiration precaution/seizure precaution Continue current treatment Continue current medications Will discontinue telemetry Will follow up Plan and treatment discussed with Dr. Crump
[2017-07-21] MEDS: Pantoprazole 40 mg EC Tab PO SCH ×2 (11:02→11:30)
[2017-07-21] MEDS: Divalproex 500 mg DR(BID formulation) PO SCH ×2 (11:02→11:29)
[2017-07-21] MEDS: Potassium Chloride 20 mEq ER Tab PO ONE ×2 (11:03→11:21)
--- NOTE | 2017-07-21 11:03 | CP.PCM.CON ---
History of Present Illness - History of Present Illness History of Present Illness: NEURO-INTERVENTIONAL CONSULTATION NOTE The patient is an 86 year old male, he has a PMH that is signifigant for HTN, Vertigo, and CAD. The patient was admitted to the hospital on 07/13/17 after with AMS. The patient was found on the floor of his apartment. This is all gleaned from the electronic record. Reportedly the patient spoke to a friend approximately 2 weeks prior and was reported to be Alert and oriented x 3. As part of the AMS workup the patient was found to have a right frontal infarction and high grade right ICA stenosis. I was consulted regarding the treatment of this carotid lesion. Past Patient History - Infectious Disease Hx of Infectious Diseases: None - Tetanus Immunizations Tetanus Immunization: Unknown - Past Social History Smoking Status: Never Smoked - CARDIAC Hx Cardiac Disorders: Yes Hx Hypertension: Yes - PULMONARY Hx Respiratory Disorders: Yes Hx Pneumonia: Yes - NEUROLOGICAL Hx Neurological Disorder: Yes (VERTIGO) Hx Dizziness: Yes - HEENT Hx HEENT Problems: No - RENAL Hx Chronic Kidney Disease: Yes Hx Kidney Stones: Yes - ENDOCRINE/METABOLIC Hx Endocrine Disorders: No - HEMATOLOGICAL/ONCOLOGICAL Hx Blood Disorders: No - INTEGUMENTARY Hx Dermatological Problems: No - MUSCULOSKELETAL/RHEUMATOLOGICAL Hx Falls: Yes - GASTROINTESTINAL Hx Gastrointestinal Disorders: Yes Hx Gastroesophageal Reflux: Yes - GENITOURINARY/GYNECOLOGICAL Hx Genitourinary Disorders: No - PSYCHIATRIC Hx Psychophysiologic Disorder: No Hx Depression: No Hx Emotional Abuse: No Hx Physical Abuse: No Hx Substance Use: No - SURGICAL HISTORY Hx Surgeries: No (pt denies) Meds Allergies/Adverse Reactions: Allergies Allergy/AdvReac Type Severity Reaction Status Date / Time No Known Allergies Allergy Verified 07/13/17 18:10 - Medications Medications: Current Medications Amlodipine Besylate (Norvasc) 10 mg PO DAILY [facility] Last Admin: 07/20/17 10:17 Dose: 10 mg Aspirin (Aspirin Chewable) 81 mg PO DAILY [facility] Last Admin: 07/20/17 10:18 Dose: 81 mg Atorvastatin Calcium (Lipitor) 20 mg PO DIN [facility] Last Admin: 07/20/17 17:24 Dose: 20 mg Divalproex Sodium (Depakote Dr(*Bid*)) 500 mg PO BID [facility] PRN Reason: Protocol Last Admin: 07/20/17 17:24 Dose: 500 mg Heparin Sodium (Porcine) (Heparin) 5,000 units SC Q12 [facility] PRN Reason: Protocol Last Admin: 07/20/17 21:36 Dose: 5,000 units Sodium Chloride (Sodium Chloride 0.9%) 1,000 mls @ 75 mls/hr IV .[id number] [facility] Last Admin: 07/20/17 21:42 Dose: 75 mls/hr Levothyroxine Sodium (Synthroid) 25 mcg PO 0600 [facility] Last Admin: 07/21/17 05:09 Dose: 25 mcg Lorazepam (Ativan) 0.5 mg IVP Q8 PRN; Protocol PRN Reason: agitation/restlessness Last Admin: 07/16/17 14:15 Dose: 0.5 mg Lorazepam (Ativan) 0.25 mg PO TID PRN; Protocol PRN Reason: agitaiton/anxiety Metoprolol Tartrate (Lopressor) 25 mg PO BID [facility] Last Admin: 07/20/17 17:24 Dose: 25 mg Mirtazapine (Remeron) 7.5 mg PO HS PRN PRN Reason: restlessness and insomnia Pantoprazole Sodium (Protonix Ec Tab) 40 mg PO ACB [facility] Last Admin: 07/20/17 10:18 Dose: 40 mg Quetiapine Fumarate (Seroquel) 12.5 mg PO HS [facility] PRN Reason: Protocol Last Admin: 07/17/17 21:47 Dose: 12.5 mg Physical Exam - Additional Findings Additional findings: NEURO EXAM: patient is awake in bed, does not follow commands Will not participate in exam. Does move all extremities Results - Vital Signs Recent Vital Signs: Last Vital Signs Temp 98.8 F 07/21/17 06:00 Pulse 87 07/21/17 06:00 Resp 18 07/21/17 06:00 BP 150/82 07/21/17 06:00 Pulse Ox 93 L 07/21/17 06:00 - Labs Result Diagrams: 07/21/17 06:20 07/21/17 06:20 Labs: Laboratory Results - last 24 hr 07/20/17 07/20/17 07/21/17 11:00 11:00 06:20 WBC 10.1 D 10.9 RBC 4.70 4.73 Hgb 13.9 L 13.6 L Hct 41.3 L 40.8 L MCV 87.9 86.3 MCH 29.6 28.8 MCHC 33.7 33.3 RDW 12.9 12.8 Plt Count 277 278 MPV 10.2 10.1 Gran % 71.7 H 74.8 H Lymph % (Auto) 12.8 L 11.5 L [place] % (Auto) 13.2 H 11.7 H Eos % (Auto) 2.0 1.8 Baso % (Auto) 0.3 0.2 Gran # 7.26 H 8.12 H Lymph # (Auto) 1.3 1.3 [place] # (Auto) 1.3 H 1.3 H Eos # (Auto) 0.2 0.2 Baso # (Auto) 0.03 0.02 Sodium 141 Potassium 3.4 L Chloride 106 Carbon Dioxide 24 Anion Gap 14 BUN 18 Creatinine 0.7 L Est GFR ( Amer) > 60 Est GFR (Non-Af Amer) > 60 Random Glucose 83 Calcium 8.5 Total Bilirubin 0.6 AST 44 ALT 49 Alkaline Phosphatase 123 Total Protein 5.6 L Albumin 2.9 L Globulin 2.8 Albumin/Globulin Ratio 1.0 L 07/21/17 06:20 WBC RBC Hgb Hct MCV MCH MCHC RDW Plt Count MPV Gran % Lymph % (Auto) [place] % (Auto) Eos % (Auto) Baso % (Auto) Gran # Lymph # (Auto) [place] # (Auto) Eos # (Auto) Baso # (Auto) Sodium 142 Potassium 3.4 L Chloride 107 Carbon Dioxide 24 Anion Gap 14 BUN 18 Creatinine 0.6 L Est GFR ( Amer) > 60 Est GFR (Non-Af Amer) > 60 Random Glucose 96 Calcium 8.4 Total Bilirubin 0.6 AST 42 ALT 49 Alkaline Phosphatase 132 H Total Protein 5.7 L Albumin 2.8 L Globulin 2.9 Albumin/Globulin Ratio 1.0 L - Imaging and Cardiology CT scan - head Status: Image reviewed by me Additional comment: CT head shows a right frontal infarction. CTA shows bilateral carotid stenosis with the right side having high grade stenosis. Assessment & Plan - Assessment and Plan (Free Text) Assessment: 86 year old male with AMS and a right frontal infarction with associated right ICA high grade stenosis Plan: 1-Currently the patient is severely disabled, as such I would hold off on any revascularization until there is a clearer picture of what is causing his AMS. I doubt this is the result of his stroke. As well the acuity of the infarct is unclear and I am concerned that urgent revascularization could pose a risk of reperfusion hemmoraghe. 2-Continue medical workup for AMS. 3- My recommendation would be to repeat the CT head in a few days or obtain an MRI brain without contrast (if possible). Based on those results can consider adding plavix to ASA and increasing dose of statin. This should only be done if Dr. Nesbitt of neurology agrees. 4-The patient should follow up with me as an outpatient, for further discussion of possible revascularization. Please ensure that the patient has an appointment to see me prior to discharge: Zeb Lockett MD [phone] [place] [address] [place] [id number] - Date & Time Date: 07/21/17 Time: 11:02
[2017-07-21] MEDS: Sodium Chloride 0.9% 1,000 ML IV SCH ×2 (11:18→16:33)
[2017-07-21] MEDS ORDERED: Potassium Chloride 40 mEq/30 ml LIQ UD PO ONE (12:43)
--- NOTE | 2017-07-21 12:58 | CP.PCM.PN ---
<Dm Torres - Last Filed: 07/21/17 12:51> Subjective - Date & Time of Evaluation Date of Evaluation: 07/21/17 Time of Evaluation: 07:15 - Subjective Subjective: PGY1 Medicine Note for Dr. Calvillo Patient seen and examined this morning at bedside. No acute events overnight. Patient is resting comfortably in bed. He is moving all four extremities and smiling. He is still repeating phrases. Nurse reports that patient is playing with medications in his mouth instead of taking them. All medications need to be crushed and placed in apple sauce for patient to take. There is no medical reason for him to not be able to take oral medications. ROS unattainable 2/2 mental status. Objective - Vital Signs/Intake and Output Vital Signs (last 24 hours): Temp Pulse Resp BP Pulse Ox 98.8 F 87 18 126/83 93 L 07/21/17 06:00 07/21/17 06:00 07/21/17 06:00 07/21/17 11:02 07/21/17 06:00 Intake and Output: 07/21/17 07/21/17 06:59 18:59 Intake Total 975 Balance 975 - Medications Medications: Current Medications Amlodipine Besylate (Norvasc) 10 mg PO DAILY [facility] Last Admin: 07/21/17 11:02 Dose: 10 mg Aspirin (Aspirin Chewable) 81 mg PO DAILY [facility] Last Admin: 07/21/17 11:03 Dose: 81 mg Atorvastatin Calcium (Lipitor) 20 mg PO DIN [facility] Last Admin: 07/20/17 17:24 Dose: 20 mg Divalproex Sodium (Becky Nguyen(*Bid*)) 500 mg PO BID [facility] PRN Reason: Protocol Last Admin: 07/21/17 11:29 Dose: Not Given Heparin Sodium (Porcine) (Heparin) 5,000 units SC Q12 [facility] PRN Reason: Protocol Last Admin: 07/21/17 11:25 Dose: 5,000 units Sodium Chloride (Sodium Chloride 0.9%) 1,000 mls @ 75 mls/hr IV .[id number] [facility] Last Admin: 07/21/17 11:18 Dose: 75 mls/hr Levothyroxine Sodium (Synthroid) 25 mcg PO 0600 [facility] Last Admin: 07/21/17 05:09 Dose: 25 mcg Lorazepam (Ativan) 0.5 mg IVP Q8 PRN; Protocol PRN Reason: agitation/restlessness Last Admin: 07/16/17 14:15 Dose: 0.5 mg Lorazepam (Ativan) 0.25 mg PO TID PRN; Protocol PRN Reason: agitaiton/anxiety Metoprolol Tartrate (Lopressor) 25 mg PO BID [facility] Last Admin: 07/21/17 11:02 Dose: 25 mg Mirtazapine (Remeron) 7.5 mg PO HS PRN PRN Reason: restlessness and insomnia Pantoprazole Sodium (Protonix Inj) 40 mg IVP ACB [facility] Quetiapine Fumarate (Seroquel) 12.5 mg PO HS [facility] PRN Reason: Protocol Last Admin: 07/17/17 21:47 Dose: 12.5 mg - Labs Labs: 07/21/17 06:20 07/21/17 06:20 PT 12.7 SECONDS (9.4-12.5) H 07/13/17 19:10 INR 1.11 (0.93-1.08) H 07/13/17 19:10 APTT 32.8 Seconds (25.1-36.5) 07/13/17 19:10 - Constitutional Appears: Non-toxic, No Acute Distress, Chronically Ill - Head Exam Head Exam: ATRAUMATIC, NORMOCEPHALIC - Eye Exam Eye Exam: EOMI, Normal appearance Pupil Exam: NORMAL ACCOMODATION, PERRL - ENT Exam ENT Exam: Mucous Membranes Moist - Neck Exam Neck Exam: absent: Lymphadenopathy, Tenderness - Respiratory Exam Respiratory Exam: Clear to Ausculation Bilateral, NORMAL BREATHING PATTERN. absent: Accessory Muscle Use, Rales, Rhonchi, Wheezes, Respiratory Distress - Cardiovascular Exam Cardiovascular Exam: REGULAR RHYTHM, +S1, +S2 - GI/Abdominal Exam GI & Abdominal Exam: Soft, Normal Bowel Sounds. absent: Distended, Firm, Guarding, Rigid, Tenderness - Extremities Exam Extremities Exam: absent: Calf Tenderness, Pedal Edema - Neurological Exam Neurological Exam: Alert, Altered, Awake. absent: Oriented x3 Additional comments: observed moving all four extremities. Does not follow simple commands (ie. squeeze left hand, move right foot) - Skin Skin Exam: Dry, Warm Assessment and Plan - Assessment and Plan (Free Text) Assessment: 86 year old male, with a PMH hypertension, CAD, vertigo, atrial flutter, AAA, nephrolithiasis, GERD, fall, presents for AMS - found to have an acute right sided frontal lobe infarct. Plan: Acute CVA - right sided frontal lobe - Neurology consulted, Dr. Alfred - Brain MRI - f/u - patient has been unable to tolerate imaging so far - EEG - f/u - Keppra 500 mg IVPB BID - discontinued - Started on Depakote 500mg PO BID - Seroquel 12.5 mg PO HS - on hold - Cardiology consulted, Dr. Crump - ECHO - unremarkable - Trop neg x 3 - Neuro Intervent. Surgery consulted, Dr. Naik - Per note, will hold off of any revascularization until cause of AMS is better known and concern for reperfusion hemorrhage if revascularized too soon. - Recommends MRI brain w/o contrast or repeat Head CT in a few days if unable to get MRI. - CT head showed Atrophy and small vessel disease, no bleed; age indeterminate, right frontal ischemic change new since the prior study - Repeat Head CT w/o 07/18 - There is an acute or subacute infarct in the right frontal lobe measuring 3.5 cm in diameter. This has become more well-defined since the previous exam. - Repeat Head CT w/o 07/20 - The right frontal infarct seen previously is less well-defined on the current exam. Chronic microvascular changes are seen in the periventricular white matter. There is moderate atrophy - Head and Neck CTA 07/20 - Right carotid.There is a long segment calcified plaque in the root right proximal internal carotid with a severe degree of stenosis measuring between 70 and 94 percent. Severe tortuosity - Left carotid. There is a calcified plaque in the left proximal internal carotid with a short-segment flap-like moderate stenosis measuring 50-69 percent. There is severe tortuosity Unremarkable CT Angiography of the Brain - TSH high, free T4 normal - RPR NR - ammonia low - blood cultures - no growth at 5 days - CK normal - Formal swallow eval recommended advance bite size and thin liquids. HHD ordered. Subclinical hypothyroidism - Synthroid 25 mcg PO daily - TSH high, free T4 normal - repeat in 3 months. Dehydration - NS @75 cc Hypertension/CAD - Aspirin 81 mg PO daily - Norvasc 10 mg PO daily - Metoprolol Tart 25 mg PO BID - Atorvastatin 20 mg PO DIN Hypokalemia - K+ 3.4 - Repleted with Potassium Liquid 40mEq PO - Pt did not receive first order of Potassium 40mEq PO because he did not swallow the medication. Per nursing, patient is swallowing fine but was playing with medication in his mouth and would not swallow the medication. The rest of his meds needed to be crushed or switched to IV. HHD - bite size, thin liquids DVT ppx- heparin 5,000 units SC q12h GI ppx- protonix 40mg IVP ACB DISPO: SW attempting to find a way to contact patient's family. Patient has no family in the [place] that we know of, but has family in [facility] and [place]. No phone numbers for family in [facility]. Patient may need guardianship to be placed in a senior care. Discussing options with SW but patient is unable to safely be discharged home since he is unable to care for himself. Case discussed with Dr. Rajinder Torres PGY1 <Alexx Calvillo - Last Filed: 07/21/17 13:57> Objective - Vital Signs/Intake and Output Vital Signs (last 24 hours): Temp Pulse Resp BP Pulse Ox 98.8 F 87 18 126/83 93 L 07/21/17 06:00 07/21/17 06:00 07/21/17 06:00 07/21/17 11:02 07/21/17 06:00 Intake and Output: 07/21/17 07/21/17 06:59 18:59 Intake Total 975 Balance 975 - Medications Medications: Current Medications Amlodipine Besylate (Norvasc) 10 mg PO DAILY [facility] Last Admin: 07/21/17 11:02 Dose: 10 mg Aspirin (Aspirin Chewable) 81 mg PO DAILY [facility] Last Admin: 07/21/17 11:03 Dose: 81 mg Atorvastatin Calcium (Lipitor) 20 mg PO DIN [facility] Last Admin: 07/20/17 17:24 Dose: 20 mg Divalproex Sodium (Depakote Dr(*Bid*)) 500 mg PO BID [facility] PRN Reason: Protocol Last Admin: 07/21/17 11:29 Dose: Not Given Heparin Sodium (Porcine) (Heparin) 5,000 units SC Q12 [facility] PRN Reason: Protocol Last Admin: 07/21/17 11:25 Dose: 5,000 units Sodium Chloride (Sodium Chloride 0.9%) 1,000 mls @ 75 mls/hr IV .[id number] [facility] Last Admin: 07/21/17 11:18 Dose: 75 mls/hr Levothyroxine Sodium (Synthroid) 25 mcg PO 0600 [facility] Last Admin: 07/21/17 05:09 Dose: 25 mcg Lorazepam (Ativan) 0.5 mg IVP Q8 PRN; Protocol PRN Reason: agitation/restlessness Last Admin: 07/16/17 14:15 Dose: 0.5 mg Lorazepam (Ativan) 0.25 mg PO TID PRN; Protocol PRN Reason: agitaiton/anxiety Metoprolol Tartrate (Lopressor) 25 mg PO BID [facility] Last Admin: 07/21/17 11:02 Dose: 25 mg Mirtazapine (Remeron) 7.5 mg PO HS PRN PRN Reason: restlessness and insomnia Pantoprazole Sodium (Protonix Inj) 40 mg IVP ACB [facility] Quetiapine Fumarate (Seroquel) 12.5 mg PO HS [facility] PRN Reason: Protocol Last Admin: 07/17/17 21:47 Dose: 12.5 mg - Labs Labs: 07/21/17 06:20 07/21/17 06:20 PT 12.7 SECONDS (9.4-12.5) H 07/13/17 19:10 INR 1.11 (0.93-1.08) H 07/13/17 19:10 APTT 32.8 Seconds (25.1-36.5) 07/13/17 19:10 Attending/Attestation - Attestation I have personally seen and examined this patient.: Yes I have fully participated in the care of the patient.: Yes I have reviewed all pertinent clinical information, including history, physical exam and plan: Yes Notes (Text): 07/21/17 13:56 86 year old male with past medical history of CVA and possible dementia who presented with altered mental status. CT head showed old lacunar infarct with new ischemic changes in the frontal lobe. MRI was ordered, however could not be done due to patient agitation. CT head was repeated earlier this week which showed acute right CVA in frontal lobe. CT head and neck was reviewed. Continue with aspirin and statin. Neurology is following the patient. Neurointervention evaluation was appreciated; recommended repeating imaging in few days. PT recommended [facility]. Will follow up with case fitter and director social service. Alexx Calvillo MD Hospitalist.
[2017-07-21] MEDS: Divalproex 125 mg EC Sprinkle Cap PO SCH (17:37)
[2017-07-22] MEDS: Levothyroxine 25 MCG TAB PO SCH (05:55)
--- NOTE | 2017-07-22 06:33 | CP.PCM.PN ---
Subjective - Date & Time of Evaluation Date of Evaluation: 07/22/17 Time of Evaluation: 06:05 - Subjective Subjective: Open eyes to name calling,awake,confuse, lying in bed, no distress Reason for consultation: Cardiac evaluation, altered mental status, hypertension ,coronary artery disease,chronic vertigo,Atrial flutter, history of fall, AAA.right frontal lobe infarct. Seen and examined by me and Dr. Crump Objective - Vital Signs/Intake and Output Vital Signs (last 24 hours): Temp Pulse Resp BP Pulse Ox 97.8 F 78 19 133/72 95 07/22/17 06:00 07/22/17 06:00 07/22/17 06:00 07/22/17 06:00 07/22/17 06:00 Intake and Output: 07/21/17 07/22/17 18:59 06:59 Intake Total 300 900 Output Total 300 0 Balance 0 900 - Medications Medications: Current Medications Amlodipine Besylate (Norvasc) 10 mg PO DAILY [facility] Last Admin: 07/21/17 11:02 Dose: 10 mg Aspirin (Aspirin Chewable) 81 mg PO DAILY [facility] Last Admin: 07/21/17 11:03 Dose: 81 mg Atorvastatin Calcium (Lipitor) 20 mg PO DIN [facility] Last Admin: 07/21/17 17:37 Dose: 20 mg Divalproex Sodium (Depakote Sprinkles) 500 mg PO BID [facility] PRN Reason: Protocol Last Admin: 07/21/17 17:37 Dose: 500 mg Heparin Sodium (Porcine) (Heparin) 5,000 units SC Q12 [facility] PRN Reason: Protocol Last Admin: 07/21/17 21:20 Dose: 5,000 units Sodium Chloride (Sodium Chloride 0.9%) 1,000 mls @ 75 mls/hr IV .[id number] [facility] Last Admin: 07/21/17 16:33 Dose: Not Given Levothyroxine Sodium (Synthroid) 25 mcg PO 0600 [facility] Last Admin: 07/22/17 05:55 Dose: 25 mcg Lorazepam (Ativan) 0.5 mg IVP Q8 PRN; Protocol PRN Reason: agitation/restlessness Last Admin: 07/16/17 14:15 Dose: 0.5 mg Lorazepam (Ativan) 0.25 mg PO TID PRN; Protocol PRN Reason: agitaiton/anxiety Metoprolol Tartrate (Lopressor) 25 mg PO BID [facility] Last Admin: 07/21/17 17:37 Dose: 25 mg Mirtazapine (Remeron) 7.5 mg PO HS PRN PRN Reason: restlessness and insomnia Pantoprazole Sodium (Protonix Susp) 40 mg PO ACB [facility] Quetiapine Fumarate (Seroquel) 12.5 mg PO HS [facility] PRN Reason: Protocol Last Admin: 07/17/17 21:47 Dose: 12.5 mg - Labs Labs: 07/21/17 06:20 07/21/17 06:20 PT 12.7 SECONDS (9.4-12.5) H 07/13/17 19:10 INR 1.11 (0.93-1.08) H 07/13/17 19:10 APTT 32.8 Seconds (25.1-36.5) 07/13/17 19:10 - Constitutional Appears: No Acute Distress - Head Exam Head Exam: NORMOCEPHALIC - ENT Exam ENT Exam: Mucous Membranes Moist - Respiratory Exam Respiratory Exam: Decreased Breath Sounds, Rhonchi, NORMAL BREATHING PATTERN - Cardiovascular Exam Additional comments: Telemetry NSR - GI/Abdominal Exam GI & Abdominal Exam: Soft, Normal Bowel Sounds Additional comments: Aspiration precaution, assist all meals - Extremities Exam Extremities Exam: Normal Capillary Refill - Neurological Exam Neurological Exam: Alert, Awake Additional comments: confuse - Skin Skin Exam: Intact, Normal Color, Warm Assessment and Plan - Assessment and Plan (Free Text) Assessment: An 86 year old male who was brought by EMS due to altered mental status. History of hypertension,coronary artery disease,chronic vertigo,atrial flutter, AAA, nephrolithiasis, syncopal episode, history of fall, GERD.right frontal lobe infarct (CT of head). Lives alone. Family lives in [place]. Plan: Seen By Dr. Shaver-(Neuro Intervention) Awake but confuse, move all extremities Open eyes to name calling 07/18 CT of head frontal lobe infarct 3.5 cms, repeat yesterday 07/20 less defined Stable cardiac status Heart rate and blood pressure stable On ASA 81 mg daily,Norvasc 10 mg daily,Lopressor 25 mg BID Aspiration precaution/seizure precaution Continue current treatment Continue current medications Discharge planning Family in [place], lives alone. friend/neighbor visits Will follow up Plan and treatment discussed with Dr. Crump
[2017-07-22 06:34] LABS: BASO # 0.03 K/mm3 (0.0-2.0); BASO % 0.3 % (0.0-3.0); EOS # 0.1 (0.0-0.7); EOS % 1.4 % (1.5-5.0); GRAN # 7.18 (1.4-6.5); GRAN % 73.5 % (50.0-68.0); HEMOGLOBIN 13.7 g/dL (14.0-18.0); LYMPH # 1.4 (1.2-3.4); LYMPH % 14.4 % (22.0-35.0); MEAN CELL VOLUME 86.7 fl (80.0-105.0); MEAN CORPUSCULAR HEMOGLOBIN 28.8 pg (25.0-35.0); MEAN CORPUSCULAR HGB CONC 33.3 g/dl (31.0-37.0); MEAN PLATELET VOLUME 10.1 fl (7.0-11.0); MONO % 10.4 % (1.0-6.0); RBC 4.75 10^6/uL (3.5-6.1); RED CELL DISTRIBUTION WIDTH 12.9 % (11.5-14.5); WHITE BLOOD COUNT 9.8 10^3/ul (4.5-11.0)
[2017-07-22 07:13] LABS: ALBUMIN 2.8 g/dL (3.0-4.8); ALT/SGPT 40 U/L (7-56); AST/SGOT 70 U/L (17-59); BLOOD UREA NITROGEN 17 mg/dL (7-21); CALCIUM 8.8 mg/dL (8.4-10.5); GFR AFRICAN-AMERICAN > 60; GFR NON-AFRICAN AMERICAN > 60
--- NOTE | 2017-07-22 08:40 | CP.PCM.PN ---
Subjective - Date & Time of Evaluation Date of Evaluation: 07/22/17 Time of Evaluation: 08:15 - Subjective Subjective: Neuro progress note for Dr. Nesbitt Patient seen and examined at bedside. Nursing reports no acute events overnight. Patient is clinically unchanged and is pleasantly confused. He is moving all extremities but is uncooperative with exam- continues to repeat and echo what is said to him. Complete ROS unobtainable secondary to clinical condition. Objective - Vital Signs/Intake and Output Vital Signs (last 24 hours): Temp Pulse Resp BP Pulse Ox 97.8 F 78 19 133/72 95 07/22/17 06:00 07/22/17 06:00 07/22/17 06:00 07/22/17 06:00 07/22/17 06:00 Intake and Output: 07/22/17 07/22/17 06:59 18:59 Intake Total 900 Output Total 0 Balance 900 - Medications Medications: Current Medications Amlodipine Besylate (Norvasc) 10 mg PO DAILY [facility] Last Admin: 07/21/17 11:02 Dose: 10 mg Aspirin (Aspirin Chewable) 81 mg PO DAILY [facility] Last Admin: 07/21/17 11:03 Dose: 81 mg Atorvastatin Calcium (Lipitor) 20 mg PO DIN [facility] Last Admin: 07/21/17 17:37 Dose: 20 mg Divalproex Sodium (Depakote Sprinkles) 500 mg PO BID [facility] PRN Reason: Protocol Last Admin: 07/21/17 17:37 Dose: 500 mg Heparin Sodium (Porcine) (Heparin) 5,000 units SC Q12 [facility] PRN Reason: Protocol Last Admin: 07/21/17 21:20 Dose: 5,000 units Sodium Chloride (Sodium Chloride 0.9%) 1,000 mls @ 75 mls/hr IV .[id number] [facility] Last Admin: 07/21/17 16:33 Dose: Not Given Levothyroxine Sodium (Synthroid) 25 mcg PO 0600 [facility] Last Admin: 07/22/17 05:55 Dose: 25 mcg Lorazepam (Ativan) 0.5 mg IVP Q8 PRN; Protocol PRN Reason: agitation/restlessness Last Admin: 07/16/17 14:15 Dose: 0.5 mg Lorazepam (Ativan) 0.25 mg PO TID PRN; Protocol PRN Reason: agitaiton/anxiety Metoprolol Tartrate (Lopressor) 25 mg PO BID [facility] Last Admin: 07/21/17 17:37 Dose: 25 mg Mirtazapine (Remeron) 7.5 mg PO HS PRN PRN Reason: restlessness and insomnia Pantoprazole Sodium (Protonix Susp) 40 mg PO ACB [facility] Quetiapine Fumarate (Seroquel) 12.5 mg PO HS [facility] PRN Reason: Protocol Last Admin: 07/17/17 21:47 Dose: 12.5 mg - Labs Labs: 07/22/17 05:20 07/22/17 05:20 PT 12.7 SECONDS (9.4-12.5) H 07/13/17 19:10 INR 1.11 (0.93-1.08) H 07/13/17 19:10 APTT 32.8 Seconds (25.1-36.5) 07/13/17 19:10 - Constitutional Appears: Confused - Head Exam Head Exam: ATRAUMATIC, NORMAL INSPECTION, NORMOCEPHALIC - Eye Exam Eye Exam: Normal appearance, PERRL. absent: Conjunctival injection, Scleral icterus - ENT Exam ENT Exam: Mucous Membranes Moist - Respiratory Exam Respiratory Exam: NORMAL BREATHING PATTERN. absent: Accessory Muscle Use, Respiratory Distress - Cardiovascular Exam Cardiovascular Exam: +S1, +S2 - Rectal Exam Rectal Exam: Deferred - Extremities Exam Extremities Exam: Normal Inspection. absent: Pedal Edema, Tenderness - Neurological Exam Neurological Exam: Alert, Awake. absent: Oriented x3 - Psychiatric Exam Psychiatric exam: Normal Affect, Normal Mood - Skin Skin Exam: Dry, Intact Assessment and Plan - Assessment and Plan (Free Text) Assessment: 86yo male PMHx HTN, CAD, and vertigo was BIBA for AMS Plan: -no neurointerventional surgery at this time- recommend repeat head CT and medical management -Head CT 07/20/17: right frontal infarct seen previously is less well-defined on the current exam. Chronic microvascular changes are seen in the periventricular white matter. There is moderate atrophy. -CTA head/neck 07/20/17: Right carotid: long segment calcified plaque in the root right proximal ICA with a severe degree of stenosis measuring 70-94%. Severe tortuosity. Left carotid: calcified plaque in the left proximal ICA with a short-segment flap-like moderate stenosis measuring 50-69%. Severe tortuosity. Brain unremarkable. -Head CT 07/18/17: acute or subaute infarct in the right frontal lobe measuring 3.5cm in diameter. This has become more well-defined since previous exam -Head CT 07/13/17: atrophy and small vessel disease, no bleed; age indeterminate R frontal ischemic change new since prior study -Head CT 12/21/15: no acute intracranial hemorrhage. 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 Marked dilatation 3rd and lateral ventricles with normal caliber 4th ventricle. Rule out central volume loss vs chronic compensated obstructive hydrocephalus. NPH could be considered only if the clinical triad of dementia, ataxia, and incontinence present. -f/u MRI -f/u EEG -Echo unremarkable -RPR nonreactive -Depakote sprinkles 500mg po bid Depakote level this AM 26 (low) -ASA 81mg qd -Lipitor 20mg po hs -Seroquel 12.5mg po hs -BP control with norvasc and lopressor -Patient had an EEG in 03/2014 which was unremarkable -PT/OT -GI and DVT ppx -Neuro check q4 -Aspiration/Seizure/Fall risk precautions in place -Neuointerventional consulted for ICA stenosis- reccs appreciated -recommend detention/[facility] care for patient -Continue medical management Discussed with Dr. Laz Moses PGY2
[2017-07-22] MEDS: Pantoprazole 40 mg Susp UD PO SCH (11:28)
[2017-07-22] MEDS: Divalproex 125 mg EC Sprinkle Cap PO SCH (11:28)
[2017-07-22] MEDS: Sodium Chloride 0.9% 1,000 ML IV SCH (13:34)
--- NOTE | 2017-07-22 14:17 | CP.PCM.PN ---
<Dm Torres - Last Filed: 07/22/17 14:11> Subjective - Date & Time of Evaluation Date of Evaluation: 07/22/17 Time of Evaluation: 07:15 - Subjective Subjective: PGY1 Medicine Note for Dr. Calvillo Patient seen and examined this morning at bedside. No acute events overnight. Patient is resting comfortably in bed. He is smiling and blowing kisses today. Patient is pleasantly confused. Still only repeating phases spoken to him. ROS unattainable 2/2 mental status Objective - Vital Signs/Intake and Output Vital Signs (last 24 hours): Temp Pulse Resp BP Pulse Ox 98.5 F 88 20 134/64 95 07/22/17 11:47 07/22/17 11:47 07/22/17 11:47 07/22/17 11:47 07/22/17 06:00 Intake and Output: 07/22/17 07/22/17 06:59 18:59 Intake Total 900 525 Output Total 0 Balance 900 525 - Medications Medications: Current Medications Amlodipine Besylate (Norvasc) 10 mg PO DAILY [facility] Last Admin: 07/22/17 11:29 Dose: 10 mg Aspirin (Aspirin Chewable) 81 mg PO DAILY [facility] Last Admin: 07/22/17 11:29 Dose: 81 mg Atorvastatin Calcium (Lipitor) 40 mg PO DIN [facility] Divalproex Sodium (Depakote Sprinkles) 500 mg PO BID [facility] PRN Reason: Protocol Last Admin: 07/22/17 11:28 Dose: 500 mg Heparin Sodium (Porcine) (Heparin) 5,000 units SC Q12 [facility] PRN Reason: Protocol Last Admin: 07/22/17 11:29 Dose: 5,000 units Sodium Chloride (Sodium Chloride 0.9%) 1,000 mls @ 75 mls/hr IV .[id number] [facility] Last Admin: 07/22/17 13:34 Dose: 75 mls/hr Levothyroxine Sodium (Synthroid) 25 mcg PO 0600 [facility] Last Admin: 07/22/17 05:55 Dose: 25 mcg Lorazepam (Ativan) 0.5 mg IVP Q8 PRN; Protocol PRN Reason: agitation/restlessness Last Admin: 07/16/17 14:15 Dose: 0.5 mg Lorazepam (Ativan) 0.25 mg PO TID PRN; Protocol PRN Reason: agitaiton/anxiety Last Admin: 07/22/17 10:46 Dose: 0.25 mg Metoprolol Tartrate (Lopressor) 25 mg PO BID [facility] Last Admin: 07/22/17 11:28 Dose: 25 mg Mirtazapine (Remeron) 7.5 mg PO HS PRN PRN Reason: restlessness and insomnia Pantoprazole Sodium (Protonix Susp) 40 mg PO ACB [facility] Last Admin: 07/22/17 11:28 Dose: 40 mg Quetiapine Fumarate (Seroquel) 12.5 mg PO HS [facility] PRN Reason: Protocol Last Admin: 07/17/17 21:47 Dose: 12.5 mg - Labs Labs: 07/22/17 05:20 07/22/17 05:20 PT 12.7 SECONDS (9.4-12.5) H 07/13/17 19:10 INR 1.11 (0.93-1.08) H 07/13/17 19:10 APTT 32.8 Seconds (25.1-36.5) 07/13/17 19:10 - Constitutional Appears: Non-toxic, No Acute Distress - Head Exam Head Exam: ATRAUMATIC, NORMOCEPHALIC - Eye Exam Eye Exam: Normal appearance - ENT Exam ENT Exam: Mucous Membranes Moist - Neck Exam Neck Exam: absent: Lymphadenopathy - Respiratory Exam Respiratory Exam: Clear to Ausculation Bilateral, NORMAL BREATHING PATTERN. absent: Accessory Muscle Use, Rales, Rhonchi, Wheezes, Respiratory Distress - Cardiovascular Exam Cardiovascular Exam: REGULAR RHYTHM, +S1, +S2 - GI/Abdominal Exam GI & Abdominal Exam: Soft, Normal Bowel Sounds. absent: Distended, Firm, Guarding, Rigid, Tenderness - Extremities Exam Extremities Exam: absent: Calf Tenderness, Pedal Edema - Neurological Exam Neurological Exam: Alert, Altered, Awake. absent: Oriented x3 Additional comments: moving all four extremities smiling, shaking hands, blows kisses - Psychiatric Exam Psychiatric exam: Normal Affect, Normal Mood - Skin Skin Exam: Dry, Warm Assessment and Plan - Assessment and Plan (Free Text) Assessment: 86 year old male, with a PMH hypertension, CAD, vertigo, atrial flutter, AAA, nephrolithiasis, GERD, fall, presents for AMS - found to have an acute right sided frontal lobe infarct. Plan: Acute CVA - right sided frontal lobe - Neurology consulted, Dr. Alfred - Brain MRI - f/u - patient has been unable to tolerate imaging so far - EEG - f/u - Keppra 500 mg IVPB BID - discontinued - Started on Depakote 500mg PO BID - Seroquel 12.5 mg PO HS - on hold - Cardiology consulted, Dr. Crump - ECHO - unremarkable - Trop neg x 3 - Neuro Intervent. Surgery consulted, Dr. Naik - Per note, will hold off of any revascularization until cause of AMS is better known and concern for reperfusion hemorrhage if revascularized too soon. - Recommends MRI brain w/o contrast or repeat Head CT in a few days if unable to get MRI. - CT head showed Atrophy and small vessel disease, no bleed; age indeterminate, right frontal ischemic change new since the prior study - Repeat Head CT w/o 07/18 - There is an acute or subacute infarct in the right frontal lobe measuring 3.5 cm in diameter. This has become more well-defined since the previous exam. - Repeat Head CT w/o 07/20 - The right frontal infarct seen previously is less well-defined on the current exam. Chronic microvascular changes are seen in the periventricular white matter. There is moderate atrophy - Head and Neck CTA 07/20 - Right carotid.There is a long segment calcified plaque in the root right proximal internal carotid with a severe degree of stenosis measuring between 70 and 94 percent. Severe tortuosity - Left carotid. There is a calcified plaque in the left proximal internal carotid with a short-segment flap-like moderate stenosis measuring 50-69 percent. There is severe tortuosity Unremarkable CT Angiography of the Brain - TSH high, free T4 normal - RPR NR - ammonia low - blood cultures - no growth at 5 days - CK normal - Formal swallow eval recommended advance bite size and thin liquids. HHD ordered. Subclinical hypothyroidism - Synthroid 25 mcg PO daily - TSH high, free T4 normal - repeat in 3 months. Dehydration - NS @75 cc Hypertension/CAD - Aspirin 81 mg PO daily - Norvasc 10 mg PO daily - Metoprolol Tart 25 mg PO BID - Atorvastatin 20 mg PO DIN Hypokalemia - resolved - continue to monitor HHD - bite size, thin liquids DVT ppx- heparin 5,000 units SC q12h GI ppx- protonix 40mg IVP ACB DISPO: SW attempting to find a way to contact patient's family. Patient has no family in the [place] that we know of, but has family in [place] and [place]. No phone numbers for family in [place]. Patient may need guardianship to be placed in a chcf. Discussing options with SW but patient is unable to safely be discharged home since he is unable to care for himself. No update at this time. Case discussed with Dr. Rajinder Torres PGY1 <Alexx Calvillo - Last Filed: 07/22/17 15:40> Objective - Vital Signs/Intake and Output Vital Signs (last 24 hours): Temp Pulse Resp BP Pulse Ox 98.5 F 88 20 134/64 95 07/22/17 11:47 07/22/17 11:47 07/22/17 11:47 07/22/17 11:47 07/22/17 06:00 Intake and Output: 07/22/17 07/22/17 06:59 18:59 Intake Total 900 525 Output Total 0 Balance 900 525 - Medications Medications: Current Medications Amlodipine Besylate (Norvasc) 10 mg PO DAILY [facility] Last Admin: 07/22/17 11:29 Dose: 10 mg Aspirin (Aspirin Chewable) 81 mg PO DAILY [facility] Last Admin: 07/22/17 11:29 Dose: 81 mg Atorvastatin Calcium (Lipitor) 40 mg PO DIN [facility] Divalproex Sodium (Depakote Sprinkles) 500 mg PO BID [facility] PRN Reason: Protocol Last Admin: 07/22/17 11:28 Dose: 500 mg Heparin Sodium (Porcine) (Heparin) 5,000 units SC Q12 KATHERINE PRN Reason: Protocol Last Admin: 07/22/17 11:29 Dose: 5,000 units Sodium Chloride (Sodium Chloride 0.9%) 1,000 mls @ 75 mls/hr IV .[id number] [facility] Last Admin: 07/22/17 13:34 Dose: 75 mls/hr Levothyroxine Sodium (Synthroid) 25 mcg PO 0600 [facility] Last Admin: 07/22/17 05:55 Dose: 25 mcg Lorazepam (Ativan) 0.5 mg IVP Q8 PRN; Protocol PRN Reason: agitation/restlessness Last Admin: 07/16/17 14:15 Dose: 0.5 mg Lorazepam (Ativan) 0.25 mg PO TID PRN; Protocol PRN Reason: agitaiton/anxiety Last Admin: 07/22/17 10:46 Dose: 0.25 mg Metoprolol Tartrate (Lopressor) 25 mg PO BID [facility] Last Admin: 07/22/17 11:28 Dose: 25 mg Mirtazapine (Remeron) 7.5 mg PO HS PRN PRN Reason: restlessness and insomnia Pantoprazole Sodium (Protonix Susp) 40 mg PO ACB [facility] Last Admin: 07/22/17 11:28 Dose: 40 mg Quetiapine Fumarate (Seroquel) 12.5 mg PO HS [facility]INE PRN Reason: Protocol Last Admin: 07/17/17 21:47 Dose: 12.5 mg - Labs Labs: 07/22/17 05:20 07/22/17 05:20 PT 12.7 SECONDS (9.4-12.5) H 07/13/17 19:10 INR 1.11 (0.93-1.08) H 07/13/17 19:10 APTT 32.8 Seconds (25.1-36.5) 07/13/17 19:10 Attending/Attestation - Attestation I have personally seen and examined this patient.: Yes I have fully participated in the care of the patient.: Yes I have reviewed all pertinent clinical information, including history, physical exam and plan: Yes Notes (Text): 07/22/17 15:40 86 year old male with past medical history of CVA and possible dementia who presented with altered mental status. CT head showed old lacunar infarct with new ischemic changes in the frontal lobe. MRI was ordered, however could not be done due to patient agitation. CT head was repeated earlier this week which showed acute right CVA in frontal lobe. CT head and neck was reviewed. Continue with aspirin and statin. Neurology is following the patient. Neurointervention recommended repeating imaging in few days. Will repeat early next week. PT recommended ELIJAH. Will follow up with outpatient case manager and social worker psychiatric. Alexx Calvillo MD Hospitalist.
[2017-07-23] MEDS: Sodium Chloride 0.9% 1,000 ML IV SCH ×2 (03:57→17:41)
[2017-07-23] MEDS: Levothyroxine 25 MCG TAB PO SCH (05:52)
--- NOTE | 2017-07-23 06:54 | CP.PCM.PN ---
Subjective - Date & Time of Evaluation Date of Evaluation: 07/23/17 Time of Evaluation: 06:35 - Subjective Subjective: Awake,confuse, lying in bed, no distress Reason for consultation: Cardiac evaluation, altered mental status, hypertension ,coronary artery disease,chronic vertigo,Atrial flutter, history of fall, AAA.right frontal lobe infarct. Seen and examined by me and Dr. Li Objective - Vital Signs/Intake and Output Vital Signs (last 24 hours): Temp Pulse Resp BP Pulse Ox 98 F 74 20 152/82 H 98 07/22/17 21:59 07/22/17 21:59 07/22/17 21:59 07/22/17 21:59 07/22/17 21:59 Intake and Output: 07/22/17 07/23/17 18:59 06:59 Intake Total 525 360 Balance 525 360 - Medications Medications: Current Medications Amlodipine Besylate (Norvasc) 10 mg PO DAILY [facility] Last Admin: 07/22/17 11:29 Dose: 10 mg Aspirin (Aspirin Chewable) 81 mg PO DAILY [facility] Last Admin: 07/22/17 11:29 Dose: 81 mg Atorvastatin Calcium (Lipitor) 40 mg PO DIN [facility] Divalproex Sodium (Depakote Sprinkles) 500 mg PO BID [facility] PRN Reason: Protocol Last Admin: 07/22/17 11:28 Dose: 500 mg Heparin Sodium (Porcine) (Heparin) 5,000 units SC Q12 KATHERINE PRN Reason: Protocol Last Admin: 07/22/17 22:11 Dose: 5,000 units Sodium Chloride (Sodium Chloride 0.9%) 1,000 mls @ 75 mls/hr IV .[id number] [facility] Last Admin: 07/23/17 03:57 Dose: 75 mls/hr Levothyroxine Sodium (Synthroid) 25 mcg PO 0600 [facility] Last Admin: 07/23/17 05:52 Dose: 25 mcg Lorazepam (Ativan) 0.5 mg IVP Q8 PRN; Protocol PRN Reason: agitation/restlessness Last Admin: 07/16/17 14:15 Dose: 0.5 mg Lorazepam (Ativan) 0.25 mg PO TID PRN; Protocol PRN Reason: agitaiton/anxiety Last Admin: 07/22/17 10:46 Dose: 0.25 mg Metoprolol Tartrate (Lopressor) 25 mg PO BID [facility] Last Admin: 07/22/17 11:28 Dose: 25 mg Mirtazapine (Remeron) 7.5 mg PO HS PRN PRN Reason: restlessness and insomnia Pantoprazole Sodium (Protonix Susp) 40 mg PO ACB [facility] Last Admin: 07/22/17 11:28 Dose: 40 mg Quetiapine Fumarate (Seroquel) 12.5 mg PO HS [facility] PRN Reason: Protocol Last Admin: 07/17/17 21:47 Dose: 12.5 mg - Labs Labs: 07/22/17 05:20 07/22/17 05:20 PT 12.7 SECONDS (9.4-12.5) H 07/13/17 19:10 INR 1.11 (0.93-1.08) H 07/13/17 19:10 APTT 32.8 Seconds (25.1-36.5) 07/13/17 19:10 - Constitutional Appears: No Acute Distress - Head Exam Head Exam: NORMOCEPHALIC - Eye Exam Eye Exam: Normal appearance - ENT Exam ENT Exam: Mucous Membranes Moist - Respiratory Exam Respiratory Exam: Decreased Breath Sounds, NORMAL BREATHING PATTERN - Cardiovascular Exam Cardiovascular Exam: +S1, +S2 - GI/Abdominal Exam GI & Abdominal Exam: Soft, Normal Bowel Sounds - Exam Additional comments: incontinent - Extremities Exam Extremities Exam: Normal Capillary Refill - Neurological Exam Neurological Exam: Alert, Awake Additional comments: disoriented - Skin Skin Exam: Intact, Normal Color, Warm Assessment and Plan - Assessment and Plan (Free Text) Assessment: An 86 year old male who was brought by EMS due to altered mental status. History of hypertension,coronary artery disease,chronic vertigo,atrial flutter, AAA, nephrolithiasis, syncopal episode, history of fall, GERD.right frontal lobe infarct (CT of head). Lives alone. Family lives in [place]. Plan: Transferred from telemetry to M/S unit More awake today, alert, answers simple questions Move all extremities 07/18 CT of head frontal lobe infarct 3.5 cms, repeat 07/20 less defined Stable cardiac status Heart rate and blood pressure stable On ASA 81 mg daily,Norvasc 10 mg daily,Lipitor 40 mg daily, Synthroid 25 mcg daily,Lopressor 25 mg BID Aspiration precaution/seizure precaution Continue current treatment Continue current medications Discharge planning, Social service working on placement Family in [place], lives alone. friend/neighbor visits Will follow up Plan and treatment discussed with Dr. Li.
[2017-07-23] MEDS: Divalproex 125 mg EC Sprinkle Cap PO SCH ×2 (09:19→18:52)
[2017-07-23] MEDS: Pantoprazole 40 mg Susp UD PO SCH (09:20)
[2017-07-23 09:24] LABS: BASO # 0.02 K/mm3 (0.0-2.0); BASO % 0.2 % (0.0-3.0); EOS # 0.1 (0.0-0.7); EOS % 0.7 % (1.5-5.0); GRAN # 8.42 (1.4-6.5); GRAN % 78.7 % (50.0-68.0); HEMOGLOBIN 13.8 g/dL (14.0-18.0); LYMPH % 8.9 % (22.0-35.0); MEAN CELL VOLUME 86.9 fl (80.0-105.0); MEAN CORPUSCULAR HEMOGLOBIN 29.1 pg (25.0-35.0); MEAN CORPUSCULAR HGB CONC 33.4 g/dl (31.0-37.0); MEAN PLATELET VOLUME 10.3 fl (7.0-11.0); MONO # 1.2 (0.1-0.6); MONO % 11.5 % (1.0-6.0); RBC 4.75 10^6/uL (3.5-6.1); WHITE BLOOD COUNT 10.7 10^3/ul (4.5-11.0)
[2017-07-23 09:59] LABS: ALB/GLOB RATIO 0.9 (1.1-1.8); ALBUMIN 2.7 g/dL (3.0-4.8); ALT/SGPT 43 U/L (7-56); AST/SGOT 37 U/L (17-59); BLOOD UREA NITROGEN 16 mg/dL (7-21); CALCIUM 8.3 mg/dL (8.4-10.5); GFR AFRICAN-AMERICAN > 60; GFR NON-AFRICAN AMERICAN > 60
--- NOTE | 2017-07-23 11:39 | CP.PCM.PN ---
<Romero Kenney - Last Filed: 07/23/17 11:52> Subjective - Date & Time of Evaluation Date of Evaluation: 07/23/17 Time of Evaluation: 06:00 - Subjective Subjective: Patient seen and evaluated bedside no acute issues overnight. Unable to get complete review of symptoms due to mental status. Objective - Vital Signs/Intake and Output Vital Signs (last 24 hours): Temp Pulse Resp BP Pulse Ox 97.8 F 80 18 145/59 L 95 07/23/17 06:00 07/23/17 06:00 07/23/17 06:00 07/23/17 09:20 07/23/17 06:00 Intake and Output: 07/23/17 07/23/17 06:59 18:59 Intake Total 360 Balance 360 - Medications Medications: Current Medications Amlodipine Besylate (Norvasc) 10 mg PO DAILY [facility] Last Admin: 07/22/17 11:29 Dose: 10 mg Aspirin (Aspirin Chewable) 81 mg PO DAILY [facility] Last Admin: 07/23/17 09:20 Dose: 81 mg Atorvastatin Calcium (Lipitor) 40 mg PO DIN [facility] Divalproex Sodium (Depakote Sprinkles) 500 mg PO BID KATHERINE PRN Reason: Protocol Last Admin: 07/23/17 09:19 Dose: 500 mg Heparin Sodium (Porcine) (Heparin) 5,000 units SC Q12 KATHERINE PRN Reason: Protocol Last Admin: 07/23/17 09:19 Dose: 5,000 units Sodium Chloride (Sodium Chloride 0.9%) 1,000 mls @ 75 mls/hr IV .[id number] [facility] Last Admin: 07/23/17 03:57 Dose: 75 mls/hr Potassium Chloride (Potassium Chloride 20 Meq/100 Ml) 20 meq in 100 mls @ 50 mls/hr IVPB Q2H [facility] Stop: 07/23/17 15:29 Levothyroxine Sodium (Synthroid) 25 mcg PO 0600 [facility] Last Admin: 07/23/17 05:52 Dose: 25 mcg Lorazepam (Ativan) 0.5 mg IVP Q8 PRN; Protocol PRN Reason: agitation/restlessness Last Admin: 07/16/17 14:15 Dose: 0.5 mg Lorazepam (Ativan) 0.25 mg PO TID PRN; Protocol PRN Reason: agitaiton/anxiety Last Admin: 07/22/17 10:46 Dose: 0.25 mg Metoprolol Tartrate (Lopressor) 25 mg PO BID [facility]ATHERINE Last Admin: 07/23/17 09:20 Dose: 25 mg Mirtazapine (Remeron) 7.5 mg PO HS PRN PRN Reason: restlessness and insomnia Pantoprazole Sodium (Protonix Susp) 40 mg PO ACB KATHERINE Last Admin: 07/23/17 09:20 Dose: 40 mg Quetiapine Fumarate (Seroquel) 12.5 mg PO HS KATHERINE PRN Reason: Protocol Last Admin: 07/17/17 21:47 Dose: 12.5 mg - Labs Labs: 07/23/17 09:00 07/23/17 09:00 PT 12.7 SECONDS (9.4-12.5) H 07/13/17 19:10 INR 1.11 (0.93-1.08) H 07/13/17 19:10 APTT 32.8 Seconds (25.1-36.5) 07/13/17 19:10 - Constitutional Appears: Non-toxic, No Acute Distress - Head Exam Head Exam: ATRAUMATIC, NORMAL INSPECTION, NORMOCEPHALIC - Eye Exam Eye Exam: Normal appearance - ENT Exam ENT Exam: Mucous Membranes Moist - Respiratory Exam Respiratory Exam: Clear to Ausculation Bilateral, NORMAL BREATHING PATTERN - Cardiovascular Exam Cardiovascular Exam: REGULAR RHYTHM, +S1, +S2 - GI/Abdominal Exam GI & Abdominal Exam: Soft. absent: Tenderness - Neurological Exam Neurological Exam: Alert, Awake. absent: Oriented x3 Additional comments: moving all four extremities well Assessment and Plan - Assessment and Plan (Free Text) Assessment: 86 year old male, with a PMH hypertension, CAD, vertigo, atrial flutter, AAA, nephrolithiasis, GERD, fall, presents for AMS - found to have an acute right sided frontal lobe infarct. Plan: Acute CVA - right sided frontal lobe - Neurology consulted, Dr. Alfred - Brain MRI - f/u - patient has been unable to tolerate imaging so far - EEG - f/u - Keppra 500 mg IVPB BID - discontinued - Started on Depakote 500mg PO BID - Seroquel 12.5 mg PO HS - on hold - Cardiology consulted, Dr. Crump - ECHO - unremarkable - Trop neg x 3 - Neuro Intervent. Surgery consulted, Dr. Naik - Per note, will hold off of any revascularization until cause of AMS is better known and concern for reperfusion hemorrhage if revascularized too soon. - Recommends MRI brain w/o contrast or repeat Head CT in a few days if unable to get MRI. - CT head showed Atrophy and small vessel disease, no bleed; age indeterminate, right frontal ischemic change new since the prior study - Repeat Head CT w/o 07/18 - There is an acute or subacute infarct in the right frontal lobe measuring 3.5 cm in diameter. This has become more well-defined since the previous exam. - Repeat Head CT w/o 07/20 - The right frontal infarct seen previously is less well-defined on the current exam. Chronic microvascular changes are seen in the periventricular white matter. There is moderate atrophy - Head and Neck CTA 07/20 - Right carotid.There is a long segment calcified plaque in the root right proximal internal carotid with a severe degree of stenosis measuring between 70 and 94 percent. Severe tortuosity - Left carotid. There is a calcified plaque in the left proximal internal carotid with a short-segment flap-like moderate stenosis measuring 50-69 percent. There is severe tortuosity Unremarkable CT Angiography of the Brain - TSH high, free T4 normal - RPR NR - ammonia low - blood cultures - no growth at 5 days - CK normal - repeat Head CT on Tuesday 07/25 Subclinical hypothyroidism - Synthroid 25 mcg PO daily - TSH high, free T4 normal - repeat in 3 months. Dehydration - NS @75 cc Hypertension/CAD - Aspirin 81 mg PO daily - Norvasc 10 mg PO daily - Metoprolol Tart 25 mg PO BID - Atorvastatin 20 mg PO DIN Hypokalemia - repleted - continue to monitor HHD - bite size, thin liquids DVT ppx- heparin 5,000 units SC q12h GI ppx- protonix 40mg IVP ACB DISPO: SW attempting to find a way to contact patient's family. Patient has no family in the [place] that we know of, but has family in [place] and [place]. No phone numbers for family in [place]. Patient may need guardianship to be placed in a intermediate. Discussing options with SW but patient is unable to safely be discharged home since he is unable to care for himself. No update at this time. <Alexx Calvillo - Last Filed: 07/23/17 12:11> Objective - Vital Signs/Intake and Output Vital Signs (last 24 hours): Temp Pulse Resp BP Pulse Ox 97.8 F 80 18 145/95 H 95 07/23/17 06:00 07/23/17 06:00 07/23/17 06:00 07/23/17 09:20 07/23/17 06:00 Intake and Output: 07/23/17 07/23/17 06:59 18:59 Intake Total 360 Balance 360 - Medications Medications: Current Medications Amlodipine Besylate (Norvasc) 10 mg PO DAILY [facility] Last Admin: 07/23/17 09:20 Dose: 10 mg Aspirin (Aspirin Chewable) 81 mg PO DAILY [facility] Last Admin: 07/23/17 09:20 Dose: 81 mg Atorvastatin Calcium (Lipitor) 40 mg PO DIN [facility] Divalproex Sodium (Depakote Sprinkles) 500 mg PO BID [facility] PRN Reason: Protocol Last Admin: 07/23/17 09:19 Dose: 500 mg Heparin Sodium (Porcine) (Heparin) 5,000 units SC Q12 KATHERINE PRN Reason: Protocol Last Admin: 07/23/17 09:19 Dose: 5,000 units Sodium Chloride (Sodium Chloride 0.9%) 1,000 mls @ 75 mls/hr IV .[id number] [facility] Last Admin: 07/23/17 03:57 Dose: 75 mls/hr Potassium Chloride (Potassium Chloride 20 Meq/100 Ml) 20 meq in 100 mls @ 50 mls/hr IVPB Q2H [facility] Stop: 07/23/17 15:29 Levothyroxine Sodium (Synthroid) 25 mcg PO 0600 [facility] Last Admin: 07/23/17 05:52 Dose: 25 mcg Lorazepam (Ativan) 0.5 mg IVP Q8 PRN; Protocol PRN Reason: agitation/restlessness Last Admin: 07/16/17 14:15 Dose: 0.5 mg Lorazepam (Ativan) 0.25 mg PO TID PRN; Protocol PRN Reason: agitaiton/anxiety Last Admin: 07/22/17 10:46 Dose: 0.25 mg Metoprolol Tartrate (Lopressor) 25 mg PO BID [facility] Last Admin: 07/23/17 09:20 Dose: 25 mg Mirtazapine (Remeron) 7.5 mg PO HS PRN PRN Reason: restlessness and insomnia Pantoprazole Sodium (Protonix Susp) 40 mg PO ACB [facility]INE Last Admin: 07/23/17 09:20 Dose: 40 mg Quetiapine Fumarate (Seroquel) 12.5 mg PO HS KATHERINE PRN Reason: Protocol Last Admin: 07/17/17 21:47 Dose: 12.5 mg - Labs Labs: 07/23/17 09:00 07/23/17 09:00 PT 12.7 SECONDS (9.4-12.5) H 07/13/17 19:10 INR 1.11 (0.93-1.08) H 07/13/17 19:10 APTT 32.8 Seconds (25.1-36.5) 07/13/17 19:10 Attending/Attestation - Attestation I have personally seen and examined this patient.: Yes I have fully participated in the care of the patient.: Yes I have reviewed all pertinent clinical information, including history, physical exam and plan: Yes Notes (Text): 07/23/17 12:10 86 year old male with past medical history of CVA and possible dementia who presented with altered mental status. CT head showed old lacunar infarct with new ischemic changes in the frontal lobe. MRI was ordered, however could not be done due to patient agitation. CT head was repeated earlier this week which showed acute right CVA in frontal lobe. CT head and neck was reviewed. Continue with aspirin and statin. Neurology is following the patient. Neurointervention recommended repeating imaging in few days. Will repeat early next week. Will replete and repeat lytes (potassium). PT recommended [facility]. Will follow up with telehealth case manager and social psychologist. Alexx Calvillo MD Hospitalist.
--- NOTE | 2017-07-24 06:02 | CP.PCM.PN ---
Subjective - Date & Time of Evaluation Date of Evaluation: 07/24/17 Time of Evaluation: 05:59 - Subjective Subjective: Mr. Boone was seen and examined at the bedside. He is awake, confused, unable to verbalize person,place, and time. He resist when somebody tries to touch him , but no physical contact. He is able to follow few commands. There was no untoward events overnight. Objective - Vital Signs/Intake and Output Vital Signs (last 24 hours): Temp Pulse Resp BP Pulse Ox 97.9 F 70 20 145/60 93 L 07/23/17 14:00 07/23/17 14:00 07/23/17 14:00 07/23/17 14:00 07/23/17 14:00 Intake and Output: 07/23/17 07/24/17 18:59 06:59 Intake Total 120 240 Balance 120 240 - Medications Medications: Current Medications Amlodipine Besylate (Norvasc) 10 mg PO DAILY [facility] Last Admin: 07/23/17 09:20 Dose: 10 mg Aspirin (Aspirin Chewable) 81 mg PO DAILY [facility] Last Admin: 07/23/17 09:20 Dose: 81 mg Atorvastatin Calcium (Lipitor) 40 mg PO DIN [facility] Last Admin: 07/23/17 18:52 Dose: 40 mg Divalproex Sodium (Depakote Sprinkles) 500 mg PO BID KATHERINE PRN Reason: Protocol Last Admin: 07/23/17 18:52 Dose: 500 mg Heparin Sodium (Porcine) (Heparin) 5,000 units SC Q12 KATHERINE PRN Reason: Protocol Last Admin: 07/23/17 21:40 Dose: 5,000 units Sodium Chloride (Sodium Chloride 0.9%) 1,000 mls @ 75 mls/hr IV .[id number] [facility] Last Admin: 07/23/17 17:41 Dose: 75 mls/hr Levothyroxine Sodium (Synthroid) 25 mcg PO 0600 [facility] Last Admin: 07/23/17 05:52 Dose: 25 mcg Lorazepam (Ativan) 0.5 mg IVP Q8 PRN; Protocol PRN Reason: agitation/restlessness Last Admin: 07/16/17 14:15 Dose: 0.5 mg Lorazepam (Ativan) 0.25 mg PO TID PRN; Protocol PRN Reason: agitaiton/anxiety Last Admin: 07/22/17 10:46 Dose: 0.25 mg Metoprolol Tartrate (Lopressor) 25 mg PO BID KATHERINE Last Admin: 07/23/17 18:52 Dose: 25 mg Mirtazapine (Remeron) 7.5 mg PO HS PRN PRN Reason: restlessness and insomnia Pantoprazole Sodium (Protonix Susp) 40 mg PO ACB KATHERINE Last Admin: 07/23/17 09:20 Dose: 40 mg Quetiapine Fumarate (Seroquel) 12.5 mg PO HS KATHERINE PRN Reason: Protocol Last Admin: 07/17/17 21:47 Dose: 12.5 mg - Labs Labs: 07/23/17 09:00 07/23/17 09:00 PT 12.7 SECONDS (9.4-12.5) H 07/13/17 19:10 INR 1.11 (0.93-1.08) H 07/13/17 19:10 APTT 32.8 Seconds (25.1-36.5) 07/13/17 19:10 - Constitutional Appears: No Acute Distress - Head Exam Head Exam: NORMAL INSPECTION - Eye Exam Pupil Exam: Miosis Additional comments: sluggish- 2 mm. - ENT Exam ENT Exam: Mucous Membranes Moist, Normal Exam - Neck Exam Neck Exam: Full ROM, Normal Inspection. absent: Lymphadenopathy - Cardiovascular Exam Cardiovascular Exam: +S1, +S2 - Neurological Exam Neurological Exam: Awake Neuro motor strength exam: Left Upper Extremity: 4, Right Upper Extremity: 3, Left Lower Extremity: 3, Right Lower Extremity: 3 Additional comments: awake, confused, with right side weaker than the left. sensation is intact. Assessment and Plan (1) Altered mental status Assessment & Plan: Case discussed with Dr. Alfred, continue all current medical, physical, occupational, and speech therapies. Recommend keep head elevated at least 30 degrees, hydration for brain perfusion. Pending CT scan of the head without in am. With depakote level low, no need for loading dose since it is being utilize to control his behavior. Status: Acute
[2017-07-24] MEDS: Levothyroxine 25 MCG TAB PO SCH (06:08)
--- NOTE | 2017-07-24 07:25 | CP.PCM.PN ---
Subjective - Date & Time of Evaluation Date of Evaluation: 07/24/17 Time of Evaluation: 07:15 - Subjective Subjective: Awake,confuse, lying in bed, no distress Reason for consultation: Cardiac evaluation, altered mental status, hypertension ,coronary artery disease,chronic vertigo,Atrial flutter, history of fall, AAA.right frontal lobe infarct. Seen and examined by me and Dr. Li Objective - Vital Signs/Intake and Output Vital Signs (last 24 hours): Temp Pulse Resp BP Pulse Ox 97.9 F 70 20 145/60 93 L 07/23/17 14:00 07/23/17 14:00 07/23/17 14:00 07/23/17 14:00 07/23/17 14:00 Intake and Output: 07/24/17 07/24/17 06:59 18:59 Intake Total 240 Output Total 1 Balance 239 - Medications Medications: Current Medications Amlodipine Besylate (Norvasc) 10 mg PO DAILY [facility] Last Admin: 07/23/17 09:20 Dose: 10 mg Aspirin (Aspirin Chewable) 81 mg PO DAILY [facility] Last Admin: 07/23/17 09:20 Dose: 81 mg Atorvastatin Calcium (Lipitor) 40 mg PO DIN [facility] Last Admin: 07/23/17 18:52 Dose: 40 mg Divalproex Sodium (Depakote Sprinkles) 500 mg PO BID [facility] PRN Reason: Protocol Last Admin: 07/23/17 18:52 Dose: 500 mg Heparin Sodium (Porcine) (Heparin) 5,000 units SC Q12 KATHERINE PRN Reason: Protocol Last Admin: 07/23/17 21:40 Dose: 5,000 units Sodium Chloride (Sodium Chloride 0.9%) 1,000 mls @ 75 mls/hr IV .[id number] [facility] Last Admin: 07/23/17 17:41 Dose: 75 mls/hr Levothyroxine Sodium (Synthroid) 25 mcg PO 0600 [facility] Last Admin: 07/24/17 06:08 Dose: 25 mcg Lorazepam (Ativan) 0.5 mg IVP Q8 PRN; Protocol PRN Reason: agitation/restlessness Last Admin: 07/16/17 14:15 Dose: 0.5 mg Lorazepam (Ativan) 0.25 mg PO TID PRN; Protocol PRN Reason: agitaiton/anxiety Last Admin: 07/22/17 10:46 Dose: 0.25 mg Metoprolol Tartrate (Lopressor) 25 mg PO BID [facility] Last Admin: 07/23/17 18:52 Dose: 25 mg Mirtazapine (Remeron) 7.5 mg PO HS PRN PRN Reason: restlessness and insomnia Pantoprazole Sodium (Protonix Susp) 40 mg PO ACB KATHERINE Last Admin: 07/23/17 09:20 Dose: 40 mg Quetiapine Fumarate (Seroquel) 12.5 mg PO HS KATHERINE PRN Reason: Protocol Last Admin: 07/17/17 21:47 Dose: 12.5 mg - Labs Labs: 07/23/17 09:00 07/23/17 09:00 PT 12.7 SECONDS (9.4-12.5) H 07/13/17 19:10 INR 1.11 (0.93-1.08) H 07/13/17 19:10 APTT 32.8 Seconds (25.1-36.5) 07/13/17 19:10 - Constitutional Appears: No Acute Distress - Head Exam Head Exam: NORMOCEPHALIC - Eye Exam Eye Exam: Normal appearance - ENT Exam ENT Exam: Mucous Membranes Moist - Respiratory Exam Respiratory Exam: Clear to Ausculation Bilateral, NORMAL BREATHING PATTERN - Cardiovascular Exam Cardiovascular Exam: +S1, +S2 - GI/Abdominal Exam GI & Abdominal Exam: Soft, Normal Bowel Sounds - Extremities Exam Extremities Exam: Normal Capillary Refill - Neurological Exam Neurological Exam: Alert, Awake Additional comments: confuse - Skin Skin Exam: Intact, Normal Color, Warm Assessment and Plan - Assessment and Plan (Free Text) Assessment: An 86 year old male who was brought by EMS due to altered mental status. History of hypertension,coronary artery disease,chronic vertigo,atrial flutter, AAA, nephrolithiasis, syncopal episode, history of fall, GERD.right frontal lobe infarct (CT of head). Lives alone. Family lives in [place].07/18 CT of head frontal lobe infarct 3.5 cms, repeat 07/20 less defined. Plan: Stable cardiac status K level 3.3 ordered KCLl 40 meq x 1 dose 07/18 CT of head frontal lobe infarct 3.5 cms, repeat 07/20 less defined Heart rate and blood pressure stable On ASA 81 mg daily,Norvasc 10 mg daily,Lipitor 40 mg daily, Synthroid 25 mcg daily,Lopressor 25 mg BID Aspiration precaution/seizure precaution Continue current treatment Continue current medications Discharge planning Family in [place], lives alone. friend/neighbor visits Physical therapy recommended [facility] Social service working on placement Will follow up Plan and treatment discussed with Dr. Li.
[2017-07-24] MEDS ORDERED: Potassium Chloride 40 mEq/30 ml LIQ UD PO ONE (07:32)
[2017-07-24] MEDS: Pantoprazole 40 mg Susp UD PO SCH (09:22)
[2017-07-24] MEDS: Divalproex 125 mg EC Sprinkle Cap PO SCH ×2 (09:22→17:19)
--- NOTE | 2017-07-24 11:18 | CP.PCM.PN ---
<Romero Kenney - Last Filed: 07/24/17 11:16> Subjective - Date & Time of Evaluation Date of Evaluation: 07/24/17 Time of Evaluation: 06:00 - Subjective Subjective: Patient seen and evaluated bedside. No acute issues overnight. Unable to obtain full ROS due to mental status. Objective - Vital Signs/Intake and Output Vital Signs (last 24 hours): Temp Pulse Resp BP Pulse Ox 97.6 F 64 20 141/75 96 07/24/17 06:00 07/24/17 06:00 07/24/17 06:00 07/24/17 09:23 07/24/17 06:00 Intake and Output: 07/24/17 07/24/17 06:59 18:59 Intake Total 240 Output Total 1 Balance 239 - Medications Medications: Current Medications Amlodipine Besylate (Norvasc) 10 mg PO DAILY [facility] Last Admin: 07/24/17 09:23 Dose: 10 mg Aspirin (Aspirin Chewable) 81 mg PO DAILY [facility] Last Admin: 07/24/17 09:22 Dose: 81 mg Atorvastatin Calcium (Lipitor) 40 mg PO DIN [facility] Last Admin: 07/23/17 18:52 Dose: 40 mg Divalproex Sodium (Depakote Sprinkles) 500 mg PO BID [facility] PRN Reason: Protocol Last Admin: 07/24/17 09:22 Dose: 500 mg Heparin Sodium (Porcine) (Heparin) 5,000 units SC Q12 [facility]ATH[facility]INE PRN Reason: Protocol Last Admin: 07/24/17 09:23 Dose: 5,000 units Sodium Chloride (Sodium Chloride 0.9%) 1,000 mls @ 75 mls/hr IV .[id number] [facility] Last Admin: 07/23/17 17:41 Dose: 75 mls/hr Levothyroxine Sodium (Synthroid) 25 mcg PO 0600 [facility] Last Admin: 07/24/17 06:08 Dose: 25 mcg Lorazepam (Ativan) 0.5 mg IVP Q8 PRN; Protocol PRN Reason: agitation/restlessness Last Admin: 07/16/17 14:15 Dose: 0.5 mg Lorazepam (Ativan) 0.25 mg PO TID PRN; Protocol PRN Reason: agitaiton/anxiety Last Admin: 07/22/17 10:46 Dose: 0.25 mg Metoprolol Tartrate (Lopressor) 25 mg PO BID [facility] Last Admin: 07/24/17 09:23 Dose: 25 mg Mirtazapine (Remeron) 7.5 mg PO HS PRN PRN Reason: restlessness and insomnia Pantoprazole Sodium (Protonix Susp) 40 mg PO ACB [facility] Last Admin: 07/24/17 09:22 Dose: 40 mg Quetiapine Fumarate (Seroquel) 12.5 mg PO HS [facility] PRN Reason: Protocol Last Admin: 07/17/17 21:47 Dose: 12.5 mg - Labs Labs: 07/23/17 09:00 07/23/17 09:00 PT 12.7 SECONDS (9.4-12.5) H 07/13/17 19:10 INR 1.11 (0.93-1.08) H 07/13/17 19:10 APTT 32.8 Seconds (25.1-36.5) 07/13/17 19:10 - Constitutional Appears: Non-toxic, No Acute Distress - Head Exam Head Exam: ATRAUMATIC, NORMAL INSPECTION, NORMOCEPHALIC - Eye Exam Eye Exam: Normal appearance - ENT Exam ENT Exam: Mucous Membranes Moist - Respiratory Exam Respiratory Exam: Clear to Ausculation Bilateral, NORMAL BREATHING PATTERN - Cardiovascular Exam Cardiovascular Exam: REGULAR RHYTHM, +S1, +S2 - GI/Abdominal Exam GI & Abdominal Exam: Soft, Normal Bowel Sounds. absent: Tenderness - Extremities Exam Extremities Exam: absent: Pedal Edema - Neurological Exam Neurological Exam: Alert, Awake, Oriented x3 Assessment and Plan - Assessment and Plan (Free Text) Assessment: 86 year old male, with a PMH hypertension, CAD, vertigo, atrial flutter, AAA, nephrolithiasis, GERD, fall, presents for AMS - found to have an acute right sided frontal lobe infarct. Plan: Acute CVA - right sided frontal lobe - Neurology consulted, Dr. Alfred - Brain MRI - f/u - patient has been unable to tolerate imaging so far - EEG - f/u - Keppra 500 mg IVPB BID - discontinued - Started on Depakote 500mg PO BID - Seroquel 12.5 mg PO HS - on hold - Cardiology consulted, Dr. Crump - ECHO - unremarkable - Trop neg x 3 - Neuro Intervent. Surgery consulted, Dr. Naik - Per note, will hold off of any revascularization until cause of AMS is better known and concern for reperfusion hemorrhage if revascularized too soon. - Recommends MRI brain w/o contrast or repeat Head CT in a few days if unable to get MRI. - CT head showed Atrophy and small vessel disease, no bleed; age indeterminate, right frontal ischemic change new since the prior study - Repeat Head CT w/o 07/18 - There is an acute or subacute infarct in the right frontal lobe measuring 3.5 cm in diameter. This has become more well-defined since the previous exam. - Repeat Head CT w/o 07/20 - The right frontal infarct seen previously is less well-defined on the current exam. Chronic microvascular changes are seen in the periventricular white matter. There is moderate atrophy - Head and Neck CTA 07/20 - Right carotid.There is a long segment calcified plaque in the root right proximal internal carotid with a severe degree of stenosis measuring between 70 and 94 percent. Severe tortuosity - Left carotid. There is a calcified plaque in the left proximal internal carotid with a short-segment flap-like moderate stenosis measuring 50-69 percent. There is severe tortuosity Unremarkable CT Angiography of the Brain - TSH high, free T4 normal - RPR NR - ammonia low - blood cultures - no growth at 5 days - CK normal - repeat Head CT on Tuesday 07/25 Subclinical hypothyroidism - Synthroid 25 mcg PO daily - TSH high, free T4 normal - repeat in 3 months. Dehydration - NS @75 cc Hypertension/CAD - Aspirin 81 mg PO daily - Norvasc 10 mg PO daily - Metoprolol Tart 25 mg PO BID - Atorvastatin 20 mg PO DIN HHD - bite size, thin liquids DVT ppx- heparin 5,000 units SC q12h GI ppx- protonix 40mg IVP ACB DISPO: SW attempting to find a way to contact patient's family. Patient has no family in the [place] that we know of, but has family in [place] and [place]. No phone numbers for family in [place]. Patient may need guardianship to be placed in a snf. Discussing options with SW but patient is unable to safely be discharged home since he is unable to care for himself. No update at this time. <Alexx Calvillo - Last Filed: 07/24/17 11:27> Objective - Vital Signs/Intake and Output Vital Signs (last 24 hours): Temp Pulse Resp BP Pulse Ox 97.6 F 64 20 141/75 96 07/24/17 06:00 07/24/17 06:00 07/24/17 06:00 07/24/17 09:23 07/24/17 06:00 Intake and Output: 07/24/17 07/24/17 06:59 18:59 Intake Total 240 Output Total 1 Balance 239 - Medications Medications: Current Medications Amlodipine Besylate (Norvasc) 10 mg PO DAILY [facility] Last Admin: 07/24/17 09:23 Dose: 10 mg Aspirin (Aspirin Chewable) 81 mg PO DAILY [facility] Last Admin: 07/24/17 09:22 Dose: 81 mg Atorvastatin Calcium (Lipitor) 40 mg PO DIN [facility] Last Admin: 07/23/17 18:52 Dose: 40 mg Divalproex Sodium (Depakote Sprinkles) 500 mg PO BID [facility] PRN Reason: Protocol Last Admin: 07/24/17 09:22 Dose: 500 mg Heparin Sodium (Porcine) (Heparin) 5,000 units SC Q12 [facility] PRN Reason: Protocol Last Admin: 07/24/17 09:23 Dose: 5,000 units Sodium Chloride (Sodium Chloride 0.9%) 1,000 mls @ 75 mls/hr IV .[id number] [facility] Last Admin: 07/23/17 17:41 Dose: 75 mls/hr Levothyroxine Sodium (Synthroid) 25 mcg PO 0600 [facility] Last Admin: 07/24/17 06:08 Dose: 25 mcg Lorazepam (Ativan) 0.5 mg IVP Q8 PRN; Protocol PRN Reason: agitation/restlessness Last Admin: 07/16/17 14:15 Dose: 0.5 mg Lorazepam (Ativan) 0.25 mg PO TID PRN; Protocol PRN Reason: agitaiton/anxiety Last Admin: 07/22/17 10:46 Dose: 0.25 mg Metoprolol Tartrate (Lopressor) 25 mg PO BID [facility] Last Admin: 07/24/17 09:23 Dose: 25 mg Mirtazapine (Remeron) 7.5 mg PO HS PRN PRN Reason: restlessness and insomnia Pantoprazole Sodium (Protonix Susp) 40 mg PO ACB [facility] Last Admin: 07/24/17 09:22 Dose: 40 mg Quetiapine Fumarate (Seroquel) 12.5 mg PO HS [facility] PRN Reason: Protocol Last Admin: 07/17/17 21:47 Dose: 12.5 mg - Labs Labs: 07/23/17 09:00 07/23/17 09:00 PT 12.7 SECONDS (9.4-12.5) H 07/13/17 19:10 INR 1.11 (0.93-1.08) H 07/13/17 19:10 APTT 32.8 Seconds (25.1-36.5) 07/13/17 19:10 Attending/Attestation - Attestation I have personally seen and examined this patient.: Yes I have fully participated in the care of the patient.: Yes I have reviewed all pertinent clinical information, including history, physical exam and plan: Yes Notes (Text): 07/24/17 11:27 86 year old male with past medical history of CVA and possible dementia who presented with altered mental status. CT head showed old lacunar infarct with new ischemic changes in the frontal lobe. MRI was ordered, however could not be done due to patient agitation. CT head was repeated earlier this week which showed acute right CVA in frontal lobe. CT head and neck was reviewed. Continue with aspirin and statin. Neurology is following the patient. Neurointervention recommended repeating imaging in few days. Will repeat CT head tomorrow. PT recommended ELIJ[facility]. Will follow up with foster care case manager and social sciences lecturer. Alexx Calvillo MD Hospitalist.
[2017-07-24] MEDS: Sodium Chloride 0.9% 1,000 ML IV SCH (17:21)
[2017-07-25] MEDS: Sodium Chloride 0.9% 1,000 ML IV SCH ×2 (02:58→17:45)
[2017-07-25] MEDS: Levothyroxine 25 MCG TAB PO SCH (05:12)
[2017-07-25 07:07] LABS: BASO # 0.02 K/mm3 (0.0-2.0); BASO % 0.2 % (0.0-3.0); EOS # 0.2 (0.0-0.7); EOS % 2.3 % (1.5-5.0); GRAN # 6.4 (1.4-6.5); HEMOGLOBIN 15.1 g/dL (14.0-18.0); LYMPH # 1.6 (1.2-3.4); LYMPH % 17.5 % (22.0-35.0); MEAN CELL VOLUME 87.1 fl (80.0-105.0); MEAN CORPUSCULAR HGB CONC 33.3 g/dl (31.0-37.0); MEAN PLATELET VOLUME 10.1 fl (7.0-11.0); RBC 5.21 10^6/uL (3.5-6.1); RED CELL DISTRIBUTION WIDTH 13.1 % (11.5-14.5); WHITE BLOOD COUNT 9.3 10^3/ul (4.5-11.0)
[2017-07-25 07:39] LABS: ALBUMIN 3.2 g/dL (3.0-4.8); ALT/SGPT 39 U/L (7-56); AST/SGOT 42 U/L (17-59); BLOOD UREA NITROGEN 18 mg/dL (7-21); GFR AFRICAN-AMERICAN > 60; GFR NON-AFRICAN AMERICAN > 60
--- NOTE | 2017-07-25 07:59 | CP.PCM.PN ---
Subjective - Date & Time of Evaluation Date of Evaluation: 07/25/17 Time of Evaluation: 06:45 - Subjective Subjective: Awake,alert, confuse, lying in bed, no distress Reason for consultation: Cardiac evaluation, altered mental status, hypertension ,coronary artery disease,chronic vertigo,Atrial flutter, history of fall, AAA.right frontal lobe infarct. Seen and examined by me and Dr. Li Objective - Vital Signs/Intake and Output Vital Signs (last 24 hours): Temp Pulse Resp BP Pulse Ox 97.1 F L 66 20 134/86 95 07/24/17 22:00 07/24/17 22:00 07/24/17 22:00 07/24/17 22:00 07/24/17 22:00 Intake and Output: 07/25/17 07/25/17 06:59 18:59 Intake Total 120 Balance 120 - Medications Medications: Current Medications Amlodipine Besylate (Norvasc) 10 mg PO DAILY [facility] Last Admin: 07/24/17 09:23 Dose: 10 mg Aspirin (Aspirin Chewable) 81 mg PO DAILY [facility] Last Admin: 07/24/17 09:22 Dose: 81 mg Atorvastatin Calcium (Lipitor) 40 mg PO DIN [facility] Last Admin: 07/24/17 17:20 Dose: 40 mg Divalproex Sodium (Depakote Sprinkles) 500 mg PO BID [facility] PRN Reason: Protocol Last Admin: 07/24/17 17:19 Dose: 500 mg Heparin Sodium (Porcine) (Heparin) 5,000 units SC Q12 KATHERINE PRN Reason: Protocol Last Admin: 07/24/17 21:59 Dose: 5,000 units Sodium Chloride (Sodium Chloride 0.9%) 1,000 mls @ 75 mls/hr IV .[id number] [facility] Last Admin: 07/25/17 02:58 Dose: 75 mls/hr Levothyroxine Sodium (Synthroid) 25 mcg PO 0600 [facility] Last Admin: 07/25/17 05:12 Dose: 25 mcg Lorazepam (Ativan) 0.5 mg IVP Q8 PRN; Protocol PRN Reason: agitation/restlessness Last Admin: 07/16/17 14:15 Dose: 0.5 mg Lorazepam (Ativan) 0.25 mg PO TID PRN; Protocol PRN Reason: agitaiton/anxiety Last Admin: 07/25/17 00:08 Dose: 0.25 mg Metoprolol Tartrate (Lopressor) 25 mg PO BID [facility] Last Admin: 07/24/17 17:21 Dose: 25 mg Mirtazapine (Remeron) 7.5 mg PO HS PRN PRN Reason: restlessness and insomnia Pantoprazole Sodium (Protonix Susp) 40 mg PO ACB [facility] Last Admin: 07/24/17 09:22 Dose: 40 mg Quetiapine Fumarate (Seroquel) 12.5 mg PO HS [facility]ATHERINE PRN Reason: Protocol Last Admin: 07/17/17 21:47 Dose: 12.5 mg - Labs Labs: 07/25/17 06:00 07/25/17 06:00 PT 12.7 SECONDS (9.4-12.5) H 07/13/17 19:10 INR 1.11 (0.93-1.08) H 07/13/17 19:10 APTT 32.8 Seconds (25.1-36.5) 07/13/17 19:10 - Constitutional Appears: No Acute Distress - Head Exam Head Exam: NORMOCEPHALIC - Eye Exam Eye Exam: Normal appearance - ENT Exam ENT Exam: Mucous Membranes Moist - Cardiovascular Exam Cardiovascular Exam: +S1, +S2 - GI/Abdominal Exam GI & Abdominal Exam: Soft, Normal Bowel Sounds - Extremities Exam Extremities Exam: Normal Capillary Refill - Neurological Exam Neurological Exam: Alert, Awake Additional comments: confuse - Skin Skin Exam: Intact, Normal Color, Warm Assessment and Plan - Assessment and Plan (Free Text) Assessment: An 86 year old male who was brought by EMS due to altered mental status. History of hypertension,coronary artery disease,chronic vertigo,atrial flutter, AAA, nephrolithiasis, syncopal episode, history of fall, GERD.right frontal lobe infarct (CT of head). Lives alone. Family lives in [place].07/18 CT of head frontal lobe infarct 3.5 cms, repeat 07/20 less defined. Plan: Agitated last night and was given Ativan Awaiting final disposition for discharge Stable cardiac status Heart rate and blood pressure stable On ASA 81 mg daily,Norvasc 10 mg daily,Lipitor 40 mg daily, Synthroid 25 mcg daily,Lopressor 25 mg BID Aspiration precaution/seizure precaution Continue current treatment Continue current medications Discharge planning Will follow up Plan and treatment discussed with Dr. Li.
[2017-07-25] MEDS: Pantoprazole 40 mg Susp UD PO SCH (08:41)
[2017-07-25] MEDS: Divalproex 125 mg EC Sprinkle Cap PO SCH ×3 (10:17→18:38)
--- NOTE | 2017-07-25 11:18 | CT ---
PROCEDURE: CT HEAD WITHOUT CONTRAST. HISTORY: AMS COMPARISON: Comparison made with prior CT scan brain 07/20/2017 TECHNIQUE: Axial computed tomography images were obtained through the head/brain without intravenous contrast. Radiation dose: Total exam DLP = 945.92 mGy-cm. This CT exam was performed using one or more of the following dose reduction techniques: Automated exposure control, adjustment of the mA and/or kV according to patient size, and/or use of iterative reconstruction technique. . FINDINGS: HEMORRHAGE: No acute parenchymal, subarachnoid or extra-axial hemorrhage. BRAIN: Significant diffuse and confluent chronic periventricular white matter ischemic changes are again seen extending peripherally into the deep and subcortical white matter both cerebral hemispheres. There is also some extension these changes into the white matter tracts of both basal nuclei. Multiple more discrete chronic appearing deep and subcortical white matter as well as bilateral basal nuclei lacunar type infarcts also present. Significant volume loss somewhat more central evidenced by disproportionate enlargement of the ventricles as compared the sulci. The possibility of VENTRICLES: Marked dilatation of the 3rd and lateral ventricles with normal-appearing 4th ventricle in part due to chronic white matter ischemic changes and ex vacuo dilatation however the possibility of an underlying element of chronic compensated obstructive type hydrocephalus not excluded. NPH the to be considered only if the clinical triad of dementia, ataxia and incontinence present. Vascular calcifications both carotid siphons. CALVARIUM: No acute calvarial fractures. . PARANASAL SINUSES: Minor mucosal thickening both maxillary antra lungs few ethmoid air cells extending into the frontal sinus. MASTOID AIR CELLS: Unremarkable as visualized. No inflammatory changes. OTHER FINDINGS: None. IMPRESSION: No evidence of acute hemorrhage. Significant diffuse/confluent chronic white matter ischemic changes with multiple chronic bilateral basal nuclei lacunar type infarct. Marked dilatation 3rd and lateral ventricles with normal-appearing 4th ventricle in part due to ex vacuo dilatation related to white matter ischemic changes and central volume loss however the possibility of chronic compensated obstructive type hydrocephalus not excluded. Possibility of normal pressure hydrocephalus to be considered only if the clinical triad of dementia, ataxia and incontinence present. The spleen
--- NOTE | 2017-07-25 11:33 | CP.PCM.PN ---
<Dm Torres - Last Filed: 07/25/17 11:27> Subjective - Date & Time of Evaluation Date of Evaluation: 07/25/17 Time of Evaluation: 07:00 - Subjective Subjective: PGY1 Medicine Note for Dr. Obando Patient seen and examined this morning at bedside. No acute events overnight. Patient is resting comfortably in bed. He is still only repeating phases spoken to him. ROS unattainable 2/2 mental status Objective - Vital Signs/Intake and Output Vital Signs (last 24 hours): Temp Pulse Resp BP Pulse Ox 98 F 66 20 146/72 96 07/25/17 08:27 07/25/17 10:16 07/25/17 08:27 07/25/17 10:17 07/25/17 08:27 Intake and Output: 07/25/17 07/25/17 06:59 18:59 Intake Total 120 Balance 120 - Medications Medications: Current Medications Amlodipine Besylate (Norvasc) 10 mg PO DAILY [facility] Last Admin: 07/25/17 10:17 Dose: 10 mg Aspirin (Aspirin Chewable) 81 mg PO DAILY [facility] Last Admin: 07/25/17 10:17 Dose: 81 mg Atorvastatin Calcium (Lipitor) 40 mg PO DIN [facility] Last Admin: 07/24/17 17:20 Dose: 40 mg Divalproex Sodium (Depakote Sprinkles) 500 mg PO BID [facility] PRN Reason: Protocol Last Admin: 07/25/17 10:18 Dose: 500 mg Heparin Sodium (Porcine) (Heparin) 5,000 units SC Q12 [facility] PRN Reason: Protocol Last Admin: 07/25/17 10:19 Dose: 5,000 units Sodium Chloride (Sodium Chloride 0.9%) 1,000 mls @ 75 mls/hr IV .[id number] [facility] Last Admin: 07/25/17 02:58 Dose: 75 mls/hr Levothyroxine Sodium (Synthroid) 25 mcg PO 0600 [facility] Last Admin: 07/25/17 05:12 Dose: 25 mcg Lorazepam (Ativan) 0.5 mg IVP Q8 PRN; Protocol PRN Reason: agitation/restlessness Last Admin: 07/16/17 14:15 Dose: 0.5 mg Lorazepam (Ativan) 0.25 mg PO TID PRN; Protocol PRN Reason: agitaiton/anxiety Last Admin: 07/25/17 00:08 Dose: 0.25 mg Metoprolol Tartrate (Lopressor) 25 mg PO BID [facility] Last Admin: 07/25/17 10:16 Dose: 25 mg Mirtazapine (Remeron) 7.5 mg PO HS PRN PRN Reason: restlessness and insomnia Pantoprazole Sodium (Protonix Susp) 40 mg PO ACB [facility] Last Admin: 07/25/17 08:41 Dose: 40 mg Quetiapine Fumarate (Seroquel) 12.5 mg PO HS [facility] PRN Reason: Protocol Last Admin: 07/17/17 21:47 Dose: 12.5 mg - Labs Labs: 07/25/17 06:00 07/25/17 06:00 PT 12.7 SECONDS (9.4-12.5) H 07/13/17 19:10 INR 1.11 (0.93-1.08) H 07/13/17 19:10 APTT 32.8 Seconds (25.1-36.5) 07/13/17 19:10 - Constitutional Appears: Non-toxic, No Acute Distress - Head Exam Head Exam: ATRAUMATIC, NORMOCEPHALIC - Eye Exam Eye Exam: Normal appearance - ENT Exam ENT Exam: Mucous Membranes Moist - Respiratory Exam Respiratory Exam: Clear to Ausculation Bilateral, NORMAL BREATHING PATTERN. absent: Accessory Muscle Use, Respiratory Distress - Cardiovascular Exam Cardiovascular Exam: REGULAR RHYTHM, +S1, +S2 - GI/Abdominal Exam GI & Abdominal Exam: Soft. absent: Distended, Firm, Guarding, Rigid, Tenderness - Extremities Exam Extremities Exam: absent: Calf Tenderness, Pedal Edema - Neurological Exam Neurological Exam: Alert, Awake. absent: Oriented x3 - Psychiatric Exam Psychiatric exam: Normal Affect, Normal Mood - Skin Skin Exam: Dry, Warm Assessment and Plan - Assessment and Plan (Free Text) Assessment: 86 year old male, with a PMH hypertension, CAD, vertigo, atrial flutter, AAA, nephrolithiasis, GERD, fall, presents for AMS - found to have an acute right sided frontal lobe infarct. Plan: Acute CVA - right sided frontal lobe - Neurology consulted, Dr. Alfred - Keppra 500 mg IVPB BID - discontinued - Started on Depakote 500mg PO BID - Seroquel 12.5 mg PO HS - on hold - Cardiology consulted, Dr. Crump - ECHO - unremarkable - Trop neg x 3 - Neuro Intervent. Surgery consulted, Dr. Naik - Per note, will hold off of any revascularization until cause of AMS is better known and concern for reperfusion hemorrhage if revascularized too soon. - Recommends MRI brain w/o contrast or repeat Head CT in a few days if unable to get MRI. - CT head showed Atrophy and small vessel disease, no bleed; age indeterminate, right frontal ischemic change new since the prior study - Repeat Head CT w/o 07/18 - There is an acute or subacute infarct in the right frontal lobe measuring 3.5 cm in diameter. This has become more well-defined since the previous exam. - Repeat Head CT w/o 07/20 - The right frontal infarct seen previously is less well-defined on the current exam. Chronic microvascular changes are seen in the periventricular white matter. There is moderate atrophy - Repeat Head CT w/o 07/25 - No evidence of acute hemorrhage. 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 Marked dilatation 3rd and lateral ventricles with normal-appearing 4th ventricle in part due to ex vacuo dilatation related to white matter ischemic changes and central volume loss however the possibility of chronic compensated obstructive type hydrocephalus not excluded. Possibility of normal pressure hydrocephalus to be considered only if the clinical triad of dementia, ataxia and incontinence present. - Head and Neck CTA 07/20 - Right carotid.There is a long segment calcified plaque in the root right proximal internal carotid with a severe degree of stenosis measuring between 70 and 94 percent. Severe tortuosity - Left carotid. There is a calcified plaque in the left proximal internal carotid with a short-segment flap-like moderate stenosis measuring 50-69 percent. There is severe tortuosity Unremarkable CT Angiography of the Brain - TSH high, free T4 normal - RPR NR - ammonia low - blood cultures - no growth at 5 days - CK normal - repeat Head CT on Tuesday 07/25 Subclinical hypothyroidism - Synthroid 25 mcg PO daily - TSH high, free T4 normal - repeat in 3 months. Dehydration - NS @75 cc Hypertension/CAD - Aspirin 81 mg PO daily - Norvasc 10 mg PO daily - Metoprolol Tart 25 mg PO BID - Atorvastatin 20 mg PO DIN HHD - bite size, thin liquids DVT ppx- heparin 5,000 units SC q12h GI ppx- protonix 40mg IVP ACB DISPO: SW attempting to find a way to contact patient's family. Patient has no family in the [place] that we know of, but has family in [place] and [place]. No phone numbers for family in [place]. Patient may need guardianship to be placed in a prison. Discussing options with SW but patient is unable to safely be discharged home since he is unable to care for himself. No update at this time. Case discussed with Dr. Topher Chaidez Melissa PGY1 <Main Obando - Last Filed: 07/25/17 13:24> Objective - Vital Signs/Intake and Output Vital Signs (last 24 hours): Temp Pulse Resp BP Pulse Ox 98 F 66 20 146/72 96 07/25/17 08:27 07/25/17 10:16 07/25/17 08:27 07/25/17 10:17 07/25/17 08:27 Intake and Output: 07/25/17 07/25/17 06:59 18:59 Intake Total 120 Balance 120 - Medications Medications: Current Medications Amlodipine Besylate (Norvasc) 10 mg PO DAILY [facility] Last Admin: 07/25/17 10:17 Dose: 10 mg Aspirin (Aspirin Chewable) 81 mg PO DAILY [facility] Last Admin: 07/25/17 10:17 Dose: 81 mg Atorvastatin Calcium (Lipitor) 40 mg PO DIN [facility] Last Admin: 07/24/17 17:20 Dose: 40 mg Divalproex Sodium (Depakote Sprinkles) 500 mg PO BID [facility] PRN Reason: Protocol Last Admin: 07/25/17 10:18 Dose: 500 mg Heparin Sodium (Porcine) (Heparin) 5,000 units SC Q12 [facility] PRN Reason: Protocol Last Admin: 07/25/17 10:19 Dose: 5,000 units Sodium Chloride (Sodium Chloride 0.9%) 1,000 mls @ 75 mls/hr IV .[id number] [facility] Last Admin: 07/25/17 02:58 Dose: 75 mls/hr Levothyroxine Sodium (Synthroid) 25 mcg PO 0600 [facility] Last Admin: 07/25/17 05:12 Dose: 25 mcg Lorazepam (Ativan) 0.5 mg IVP Q8 PRN; Protocol PRN Reason: agitation/restlessness Last Admin: 07/16/17 14:15 Dose: 0.5 mg Lorazepam (Ativan) 0.25 mg PO TID PRN; Protocol PRN Reason: agitaiton/anxiety Last Admin: 07/25/17 00:08 Dose: 0.25 mg Metoprolol Tartrate (Lopressor) 25 mg PO BID [facility] Last Admin: 07/25/17 10:16 Dose: 25 mg Mirtazapine (Remeron) 7.5 mg PO HS PRN PRN Reason: restlessness and insomnia Pantoprazole Sodium (Protonix Susp) 40 mg PO ACB [facility] Last Admin: 07/25/17 08:41 Dose: 40 mg Quetiapine Fumarate (Seroquel) 12.5 mg PO HS [facility] PRN Reason: Protocol Last Admin: 07/17/17 21:47 Dose: 12.5 mg - Labs Labs: 07/25/17 06:00 07/25/17 06:00 PT 12.7 SECONDS (9.4-12.5) H 07/13/17 19:10 INR 1.11 (0.93-1.08) H 07/13/17 19:10 APTT 32.8 Seconds (25.1-36.5) 07/13/17 19:10 Attending/Attestation - Attestation I have personally seen and examined this patient.: Yes I have fully participated in the care of the patient.: Yes I have reviewed all pertinent clinical information, including history, physical exam and plan: Yes Notes (Text): 07/25/17 13:19 Attending note; Patient seen and examined with resident. Patient is alert and awake. Able to repeat sentences. Not in any acute distress. Moves all extremities. Patient is a 86 year old male with past medical history of CVA and possible dementia who presented with altered mental status. CT head showed old lacunar infarct with new ischemic changes in the frontal lobe. MRI was ordered, however could not be done due to patient agitation. CT head was repeated earlier this week which showed acute right CVA in frontal lobe. Continue with aspirin and statin. Neurology evaluation appreciated. Repeat CT head ordered. Neurointervention evaluation appreciated. PT recommended ELIJAH. Will follow up with case assistant and sr. social media & mobile manager.
[2017-07-25] MEDS: Nystatin 100,000 Units/gm Topical Pow(15 gm) TOP SCH ×2 (17:39→23:44)
[2017-07-26] MEDS: Sodium Chloride 0.9% 1,000 ML IV SCH (03:05)
[2017-07-26] MEDS: Levothyroxine 25 MCG TAB PO SCH (06:12)
[2017-07-26] MEDS: Nystatin 100,000 Units/gm Topical Pow(15 gm) TOP SCH ×3 (06:13→22:00)
--- NOTE | 2017-07-26 07:38 | CP.PCM.PN ---
Subjective - Date & Time of Evaluation Date of Evaluation: 07/26/17 Time of Evaluation: 06:40 - Subjective Subjective: Sleeping but open eyes to name calling, confuse, lying in bed, no distress Reason for consultation: Cardiac evaluation, altered mental status, hypertension ,coronary artery disease,chronic vertigo,Atrial flutter, history of fall, AAA.right frontal lobe infarct. Seen and examined by me and Objective - Vital Signs/Intake and Output Vital Signs (last 24 hours): Temp Pulse Resp BP Pulse Ox 97.3 F L 59 L 20 152/64 H 96 07/25/17 22:00 07/25/17 22:00 07/25/17 22:00 07/25/17 22:00 07/25/17 22:00 Intake and Output: 07/26/17 07/26/17 06:59 18:59 Intake Total 360 Balance 360 - Medications Medications: Current Medications Amlodipine Besylate (Norvasc) 10 mg PO DAILY [facility] Last Admin: 07/25/17 10:17 Dose: 10 mg Aspirin (Aspirin Chewable) 81 mg PO DAILY [facility] Last Admin: 07/25/17 10:17 Dose: 81 mg Atorvastatin Calcium (Lipitor) 40 mg PO DIN [facility] Last Admin: 07/25/17 17:47 Dose: 40 mg Divalproex Sodium (Depakote Sprinkles) 500 mg PO BID [facility] PRN Reason: Protocol Last Admin: 07/25/17 18:38 Dose: 500 mg Heparin Sodium (Porcine) (Heparin) 5,000 units SC Q12 [facility] PRN Reason: Protocol Last Admin: 07/25/17 21:09 Dose: 5,000 units Sodium Chloride (Sodium Chloride 0.9%) 1,000 mls @ 75 mls/hr IV .[id number] [facility] Last Admin: 07/26/17 03:05 Dose: Not Given Levothyroxine Sodium (Synthroid) 25 mcg PO 0600 [facility] Last Admin: 07/26/17 06:12 Dose: 25 mcg Lorazepam (Ativan) 0.5 mg IVP Q8 PRN; Protocol PRN Reason: agitation/restlessness Last Admin: 07/16/17 14:15 Dose: 0.5 mg Lorazepam (Ativan) 0.25 mg PO TID PRN; Protocol PRN Reason: agitaiton/anxiety Last Admin: 07/25/17 00:08 Dose: 0.25 mg Metoprolol Tartrate (Lopressor) 25 mg PO BID [facility] Last Admin: 07/25/17 17:47 Dose: 25 mg Mirtazapine (Remeron) 7.5 mg PO HS PRN PRN Reason: restlessness and insomnia Last Admin: 07/25/17 21:08 Dose: 7.5 mg Nystatin (Nystop Topical Powder) 0 gm TOP QSHIFT [facility] Last Admin: 07/26/17 06:13 Dose: 1 pow Pantoprazole Sodium (Protonix Susp) 40 mg PO ACB [facility] Last Admin: 07/25/17 08:41 Dose: 40 mg Quetiapine Fumarate (Seroquel) 12.5 mg PO HS [facility] PRN Reason: Protocol Last Admin: 07/17/17 21:47 Dose: 12.5 mg - Labs Labs: 07/25/17 06:00 07/25/17 06:00 PT 12.7 SECONDS (9.4-12.5) H 07/13/17 19:10 INR 1.11 (0.93-1.08) H 07/13/17 19:10 APTT 32.8 Seconds (25.1-36.5) 07/13/17 19:10 - Constitutional Appears: No Acute Distress - Head Exam Head Exam: NORMOCEPHALIC - Eye Exam Eye Exam: Normal appearance - ENT Exam ENT Exam: Mucous Membranes Moist - Respiratory Exam Respiratory Exam: Rhonchi, NORMAL BREATHING PATTERN - Cardiovascular Exam Cardiovascular Exam: +S1, +S2 - GI/Abdominal Exam GI & Abdominal Exam: Soft, Normal Bowel Sounds - Extremities Exam Extremities Exam: Normal Capillary Refill - Neurological Exam Neurological Exam: Alert, Awake Additional comments: confuse - Psychiatric Exam Psychiatric exam: Normal Affect - Skin Skin Exam: Intact, Normal Color, Warm Assessment and Plan - Assessment and Plan (Free Text) Assessment: An 86 year old male who was brought by EMS due to altered mental status. History of hypertension,coronary artery disease,chronic vertigo,atrial flutter, AAA, nephrolithiasis, syncopal episode, history of fall, GERD.right frontal lobe infarct (CT of head). Lives alone. Family lives in [place].07/18 CT of head frontal lobe infarct 3.5 cms, repeat 07/20 less defined. Plan: Calm and sleeping Awaiting final disposition for discharge Stable cardiac status Heart rate and blood pressure stable On ASA 81 mg daily,Norvasc 10 mg daily,Lipitor 40 mg daily, Synthroid 25 mcg daily,Lopressor 25 mg BID Aspiration precaution/seizure precaution Continue current treatment Continue current medications Discharge planning Will follow up Plan and treatment discussed with Dr. Crump
[2017-07-26] MEDS: Pantoprazole 40 mg Susp UD PO SCH (08:19)
[2017-07-26] MEDS: Divalproex 125 mg EC Sprinkle Cap PO SCH ×2 (09:58→17:41)
--- NOTE | 2017-07-26 13:28 | CP.PCM.PN ---
<Dm Torres - Last Filed: 07/26/17 16:46> Subjective - Date & Time of Evaluation Date of Evaluation: 07/26/17 Time of Evaluation: 06:45 - Subjective Subjective: PGY1 Medicine Note for Dr. Obando Patient seen and examined this morning at bedside. No acute events overnight. Patient is sitting up in his bed with a friend at bedside. He is still only repeating phases spoken to him. ROS unattainable 2/2 mental status Objective - Vital Signs/Intake and Output Vital Signs (last 24 hours): Temp Pulse Resp BP Pulse Ox 97.7 F 71 20 149/81 94 L 07/26/17 09:04 07/26/17 09:59 07/26/17 09:04 07/26/17 09:59 07/26/17 09:04 Intake and Output: 07/26/17 07/26/17 06:59 18:59 Intake Total 360 Balance 360 - Medications Medications: Current Medications Amlodipine Besylate (Norvasc) 10 mg PO DAILY [facility] Last Admin: 07/26/17 09:59 Dose: 10 mg Aspirin (Aspirin Chewable) 81 mg PO DAILY [facility] Last Admin: 07/26/17 09:59 Dose: 81 mg Atorvastatin Calcium (Lipitor) 40 mg PO DIN [facility] Last Admin: 07/25/17 17:47 Dose: 40 mg Divalproex Sodium (Depakote Sprinkles) 500 mg PO BID [facility] PRN Reason: Protocol Last Admin: 07/26/17 09:58 Dose: 500 mg Heparin Sodium (Porcine) (Heparin) 5,000 units SC Q12 [facility] PRN Reason: Protocol Last Admin: 07/26/17 09:59 Dose: 5,000 units Sodium Chloride (Sodium Chloride 0.9%) 1,000 mls @ 75 mls/hr IV .[id number] [facility] Last Admin: 07/26/17 03:05 Dose: Not Given Levothyroxine Sodium (Synthroid) 25 mcg PO 0600 [facility] Last Admin: 07/26/17 06:12 Dose: 25 mcg Lorazepam (Ativan) 0.5 mg IVP Q8 PRN; Protocol PRN Reason: agitation/restlessness Last Admin: 07/16/17 14:15 Dose: 0.5 mg Lorazepam (Ativan) 0.25 mg PO TID PRN; Protocol PRN Reason: agitaiton/anxiety Last Admin: 07/25/17 00:08 Dose: 0.25 mg Metoprolol Tartrate (Lopressor) 25 mg PO BID [facility] Last Admin: 07/26/17 09:59 Dose: 25 mg Mirtazapine (Remeron) 7.5 mg PO HS PRN PRN Reason: restlessness and insomnia Last Admin: 07/25/17 21:08 Dose: 7.5 mg Nystatin (Nystop Topical Powder) 0 gm TOP QSHIFT [facility] Last Admin: 07/26/17 06:13 Dose: 1 pow Pantoprazole Sodium (Protonix Susp) 40 mg PO ACB [facility] Last Admin: 07/26/17 08:19 Dose: 40 mg Quetiapine Fumarate (Seroquel) 12.5 mg PO HS [facility] PRN Reason: Protocol Last Admin: 07/17/17 21:47 Dose: 12.5 mg - Labs Labs: 07/25/17 06:00 07/25/17 06:00 PT 12.7 SECONDS (9.4-12.5) H 07/13/17 19:10 INR 1.11 (0.93-1.08) H 07/13/17 19:10 APTT 32.8 Seconds (25.1-36.5) 07/13/17 19:10 - Constitutional Appears: Non-toxic, No Acute Distress - Head Exam Head Exam: ATRAUMATIC, NORMOCEPHALIC - Eye Exam Eye Exam: EOMI, Normal appearance Pupil Exam: NORMAL ACCOMODATION, PERRL - ENT Exam ENT Exam: Mucous Membranes Moist - Neck Exam Neck Exam: absent: Lymphadenopathy - Respiratory Exam Respiratory Exam: Clear to Ausculation Bilateral, NORMAL BREATHING PATTERN. absent: Accessory Muscle Use, Rales, Rhonchi, Wheezes, Respiratory Distress - Cardiovascular Exam Cardiovascular Exam: REGULAR RHYTHM, +S1, +S2 - GI/Abdominal Exam GI & Abdominal Exam: Soft, Normal Bowel Sounds. absent: Distended, Firm, Guarding, Rigid - Extremities Exam Extremities Exam: absent: Calf Tenderness, Pedal Edema - Neurological Exam Neurological Exam: Alert, Altered (only repeating phrases spoken to him), Awake - Skin Skin Exam: Dry, Warm Assessment and Plan - Assessment and Plan (Free Text) Assessment: 86 year old male, with a PMH hypertension, CAD, vertigo, atrial flutter, AAA, nephrolithiasis, GERD, fall, presents for AMS - found to have an acute right sided frontal lobe infarct. Plan: Acute CVA - right sided frontal lobe - Neurology consulted, Dr. Alfred - Keppra 500 mg IVPB BID - discontinued - Started on Depakote 500mg PO BID - Seroquel 12.5 mg PO HS - on hold - Cardiology consulted, Dr. Crump - ECHO - unremarkable - Trop neg x 3 - Neuro Intervent. Surgery consulted, Dr. Naik - Per note, will hold off of any revascularization until cause of AMS is better known and concern for reperfusion hemorrhage if revascularized too soon. - Start Plavix 75mg PO daily in addition to aspirin. Dr. Nesbitt is in agreement. - CT head showed Atrophy and small vessel disease, no bleed; age indeterminate, right frontal ischemic change new since the prior study - Repeat Head CT w/o 07/18 - There is an acute or subacute infarct in the right frontal lobe measuring 3.5 cm in diameter. This has become more well-defined since the previous exam. - Repeat Head CT w/o 07/20 - The right frontal infarct seen previously is less well-defined on the current exam. Chronic microvascular changes are seen in the periventricular white matter. There is moderate atrophy - Repeat Head CT w/o 07/25 - No evidence of acute hemorrhage. 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 Marked dilatation 3rd and lateral ventricles with normal-appearing 4th ventricle in part due to ex vacuo dilatation related to white matter ischemic changes and central volume loss however the possibility of chronic compensated obstructive type hydrocephalus not excluded. Possibility of normal pressure hydrocephalus to be considered only if the clinical triad of dementia, ataxia and incontinence present. - Head and Neck CTA 07/20 - Right carotid.There is a long segment calcified plaque in the root right proximal internal carotid with a severe degree of stenosis measuring between 70 and 94 percent. Severe tortuosity - Left carotid. There is a calcified plaque in the left proximal internal carotid with a short-segment flap-like moderate stenosis measuring 50-69 percent. There is severe tortuosity Unremarkable CT Angiography of the Brain - TSH high, free T4 normal - RPR NR - ammonia low - blood cultures - no growth at 5 days - CK normal - repeat Head CT on Tuesday 07/25 Subclinical hypothyroidism - Synthroid 25 mcg PO daily - TSH high, free T4 normal - repeat in 3 months. Dehydration - NS @75 cc - discontinued Patient is eating and drinking well. No need for IV fluids at this time. Hypertension/CAD - Aspirin 81 mg PO daily - Norvasc 10 mg PO daily - Metoprolol Tart 25 mg PO BID - Atorvastatin 20 mg PO DIN [facility]HD - bite size, thin liquids DVT ppx- heparin 5,000 units SC q12h GI ppx- protonix 40mg IVP ACB DISPO: Patient may need guardianship to be placed in a penitentiary. Discussing options with SW but patient is unable to safely be discharged home since he is unable to care for himself. No update at this time. Case discussed with Dr. Topher Torres PGY <Main Obando - Last Filed: 07/27/17 07:58> Objective - Vital Signs/Intake and Output Vital Signs (last 24 hours): Temp Pulse Resp BP Pulse Ox 98 F 72 20 117/66 95 07/26/17 22:07 07/26/17 22:07 07/26/17 22:07 07/26/17 22:07 07/26/17 22:07 Intake and Output: 07/27/17 07/27/17 06:59 18:59 Intake Total 120 Output Total 0 Balance 120 - Medications Medications: Current Medications Amlodipine Besylate (Norvasc) 10 mg PO DAILY [facility] Last Admin: 07/26/17 09:59 Dose: 10 mg Aspirin (Aspirin Chewable) 81 mg PO DAILY [facility] Last Admin: 07/26/17 09:59 Dose: 81 mg Atorvastatin Calcium (Lipitor) 40 mg PO DIN [facility] Last Admin: 07/26/17 17:41 Dose: 40 mg Clopidogrel Bisulfate (Plavix) 75 mg PO DAILY [facility] Last Admin: 07/26/17 17:41 Dose: 75 mg Divalproex Sodium (Depakote Sprinkles) 500 mg PO BID [facility] PRN Reason: Protocol Last Admin: 07/26/17 17:41 Dose: 500 mg Heparin Sodium (Porcine) (Heparin) 5,000 units SC Q12 [facility] PRN Reason: Protocol Last Admin: 07/26/17 21:58 Dose: 5,000 units Levothyroxine Sodium (Synthroid) 25 mcg PO 0600 [facility] Last Admin: 07/27/17 05:58 Dose: 25 mcg Lorazepam (Ativan) 0.5 mg IVP Q8 PRN; Protocol PRN Reason: agitation/restlessness Last Admin: 07/16/17 14:15 Dose: 0.5 mg Lorazepam (Ativan) 0.25 mg PO TID PRN; Protocol PRN Reason: agitaiton/anxiety Last Admin: 07/25/17 00:08 Dose: 0.25 mg Metoprolol Tartrate (Lopressor) 25 mg PO BID [facility] Last Admin: 07/26/17 17:42 Dose: 25 mg Mirtazapine (Remeron) 7.5 mg PO HS PRN PRN Reason: restlessness and insomnia Last Admin: 07/25/17 21:08 Dose: 7.5 mg Nystatin (Nystop Topical Powder) 0 gm TOP QSHIFT [facility] Last Admin: 07/26/17 22:00 Dose: 1 pow Pantoprazole Sodium (Protonix Susp) 40 mg PO ACB [facility] Last Admin: 07/26/17 08:19 Dose: 40 mg Quetiapine Fumarate (Seroquel) 12.5 mg PO HS [facility] PRN Reason: Protocol Last Admin: 07/17/17 21:47 Dose: 12.5 mg - Labs Labs: 07/25/17 06:00 07/25/17 06:00 PT 12.7 SECONDS (9.4-12.5) H 07/13/17 19:10 INR 1.11 (0.93-1.08) H 07/13/17 19:10 APTT 32.8 Seconds (25.1-36.5) 07/13/17 19:10 Attending/Attestation - Attestation I have personally seen and examined this patient.: Yes I have fully participated in the care of the patient.: Yes I have reviewed all pertinent clinical information, including history, physical exam and plan: Yes Notes (Text): 07/27/17 07:57 Attending note; Patient seen and examined with resident. Patient is alert and awake. feeding with assistance. Not in any acute distress. Moves all extremities. Patient is a 86 year old male with past medical history of CVA and possible dementia who presented with altered mental status. CT head showed old lacunar infarct with new ischemic changes in the frontal lobe. MRI was ordered, however could not be done due to patient agitation. CT head was repeated earlier this week which showed acute right CVA in frontal lobe. Continue with aspirin and statin. Neurology evaluation appreciated. Repeat CT head showed no acute changes. Started on Plavix as per neurology. Neurointervention evaluation appreciated. PT recommended ELIJAH. Case discussed with case resource manager for discharge planning.
--- NOTE | 2017-07-26 15:59 | PN ---
DATE: 07/26/2017 REASON FOR ADDENDUM: We will sign off case and follow awilda Kory Crump MD
[2017-07-26 22:07] VITALS: RESP 20
[2017-07-27] MEDS: Levothyroxine 25 MCG TAB PO SCH (05:58)
[2017-07-27] MEDS: Pantoprazole 40 mg Susp UD PO SCH (07:45)
[2017-07-27] MEDS: Nystatin 100,000 Units/gm Topical Pow(15 gm) TOP SCH ×2 (08:46→13:58)
[2017-07-27] MEDS: Divalproex 125 mg EC Sprinkle Cap PO SCH (10:15)
--- NOTE | 2017-07-27 15:35 | CP.PCM.DIS ---
<Dm Torres - Last Filed: 07/28/17 05:53> Provider - Provider Date of Admission: 07/13/17 21:02 Attending physician: Main Obando MD Primary care physician: Manav Ortiz MD Consults: Neuro - Alfred Neuro Interventional - [facility] - Abdagustín Time Spent in preparation of Discharge (in minutes): 35 Hospital Course - Lab Results Lab Results: Most Recent Lab Values WBC 9.3 10^3/ul (4.5-11.0) 07/25/17 06:00 RBC 5.21 10^6/uL (3.5-6.1) 07/25/17 06:00 Hgb 15.1 g/dL (14.0-18.0) 07/25/17 06:00 Hct 45.4 % (42.0-52.0) 07/25/17 06:00 MCV 87.1 fl (80.0-105.0) 07/25/17 06:00 MCH 29.0 pg (25.0-35.0) 07/25/17 06:00 MCHC 33.3 g/dl (31.0-37.0) 07/25/17 06:00 RDW 13.1 % (11.5-14.5) 07/25/17 06:00 Plt Count 311 10^3/uL (120.0-450.0) 07/25/17 06:00 MPV 10.1 fl (7.0-11.0) 07/25/17 06:00 Gran % 69.0 % (50.0-68.0) H 07/25/17 06:00 Lymph % (Auto) 17.5 % (22.0-35.0) L 07/25/17 06:00 [place] % (Auto) 11.0 % (1.0-6.0) H 07/25/17 06:00 Eos % (Auto) 2.3 % (1.5-5.0) 07/25/17 06:00 Baso % (Auto) 0.2 % (0.0-3.0) 07/25/17 06:00 Gran # 6.40 (1.4-6.5) 07/25/17 06:00 Lymph # (Auto) 1.6 (1.2-3.4) 07/25/17 06:00 [place] # (Auto) 1.0 (0.1-0.6) H 07/25/17 06:00 Eos # (Auto) 0.2 (0.0-0.7) 07/25/17 06:00 Baso # (Auto) 0.02 K/mm3 (0.0-2.0) 07/25/17 06:00 PT 12.7 SECONDS (9.4-12.5) H 07/13/17 19:10 INR 1.11 (0.93-1.08) H 07/13/17 19:10 APTT 32.8 Seconds (25.1-36.5) 07/13/17 19:10 pO2 36 mm/Hg (30-55) 07/13/17 20:27 VBG pH 7.35 (7.32-7.43) 07/13/17 20:27 VBG pCO2 51.0 (40-60) 07/13/17 20: VBG HCO3 28.2 mmol/l (21-28) H 07/13/17 20:27 VBG Total CO2 29.8 mmol.L (22-28) H 07/13/17 20:27 VBG O2 Sat (Calc) 69.8 % (40-65) H 07/13/17 20:27 VBG Base Excess 1.7 mmol/L (0.0-2.0) 07/13/17 20:27 VBG Potassium 4.8 mmol/L (3.6-5.2) 07/13/17 20: Sodium 137.0 mmol/L (132-148) 07/13/17 20: Chloride 102.0 mmol/L (98-107) 07/13/17 20: Glucose 107 mg/dl (75-110) 07/13/17 20: Lactate 1.4 mmol/L (0.7-2.1) 07/13/17 20: FiO2 21.0 % 07/13/17 20: Sodium 143 mmol/L (132-148) 07/25/17 06:00 Potassium 4.3 mmol/L (3.6-5.0) 07/25/17 06:00 Chloride 103 mmol/L (98-107) 07/25/17 06:00 Carbon Dioxide 30 mmol/L (21-33) 07/25/17 06:00 Anion Gap 15 (10-20) 07/25/17 06:00 BUN 18 mg/dL (7-21) 07/25/17 06:00 Creatinine 0.7 mg/dl (0.8-1.5) L 07/25/17 06:00 Est GFR ( Amer) > 60 07/25/17 06:00 Est GFR (Non-Af Amer) > 60 07/25/17 06:00 POC Glucose (mg/dL) 84 mg/dL (65-110) 07/16/17 00:45 Random Glucose 89 mg/dL (70-110) 07/25/17 06:00 Calcium 9.0 mg/dL (8.4-10.5) 07/25/17 06:00 Phosphorus 3.7 mg/dL (2.5-4.5) 07/13/17 19:10 Magnesium 2.6 mg/dL (1.7-2.2) H 07/13/17 19:10 Total Bilirubin 0.8 mg/dL (0.2-1.3) 07/25/17 06:00 AST 42 U/L (17-59) 07/25/17 06:00 ALT 39 U/L (7-56) 07/25/17 06:00 Alkaline Phosphatase 164 U/L (38-126) H D 07/25/17 06:00 Ammonia < 9 umol/L (9-33) L 07/14/17 01:30 Lactate Dehydrogenase 429 U/L (333-699) 07/13/17 20:46 Total Creatine Kinase 57 U/L (35-230) 07/13/17 20:46 Troponin I 0.01 ng/mL 07/14/17 10:00 Total Protein 6.4 g/dL (5.8-8.3) 07/25/17 06:00 Albumin 3.2 g/dL (3.0-4.8) 07/25/17 06:00 Globulin 3.2 gm/dL 07/25/17 06:00 Albumin/Globulin Ratio 1.0 (1.1-1.8) L 07/25/17 06:00 Triglycerides 117 mg/dL (35-160) 07/14/17 03:08 Cholesterol 143 mg/dL (130-200) 07/14/17 03:08 LDL Cholesterol Direct 79 mg/dL (0-129) 07/14/17 03:08 HDL Cholesterol 39 mg/dL (29-60) 07/14/17 03:08 Free T4 1.24 ng/dL (0.78-2.19) 07/14/17 03:08 Total T3 0.83 ng/mL (0.97-1.69) L 07/14/17 03:08 TSH 3rd Generation 5.15 mIU/mL (0.46-4.68) H 07/14/17 03:08 Venous Blood Potassium 4.8 mmol/L (3.6-5.2) 07/13/17 20:27 Urine Color Yellow (YELLOW) 07/13/17 20: Urine Appearance Clear (CLEAR) 07/13/17 20: Urine pH 6.0 (4.7-8.0) 07/13/17 20:29 Ur Specific [place] >= 1.030 (1.005-1.035) 07/13/17 20:29 Urine Protein Trace mg/dL (<30 mg/dL) H 07/13/17 20:29 Urine Glucose (UA) Negative mg/dL (NEGATIVE) 07/13/17 20: Urine Ketones 40 mg/dL (NEGATIVE) H 07/13/17 20:29 Urine Blood Trace-intact (NEGATIVE) H 07/13/17 20:29 Urine Nitrate Negative (NEGATIVE) 07/13/17 20:29 Urine Bilirubin Small (NEGATIVE) H 07/13/17 20:29 Urine Urobilinogen 1.0 E.U./dL (<1 E.U./dL) H 07/13/17 20:29 Ur Leukocyte Esterase Negative [place]/uL (NEGATIVE) 07/13/17 20:29 Urine RBC 1 - 3 /hpf (0-2) 07/13/17 20:29 Urine WBC 2 - 5 /hpf (0-6) 07/13/17 20:29 Ur Epithelial Cells 4 - 5 /hpf (0-5) 07/13/17 20:29 Urine Bacteria Few (NEG) 07/13/17 20:29 Salicylates < 1 mg/dL (2.0-20.0) L 07/13/17 19:10 Urine Opiates Screen Negative (NEGATIVE) 07/13/17 20:27 Urine Methadone Screen Negative (NEGATIVE) 07/13/17 20:27 Acetaminophen < 10.0 ug/ml (10.0-20.0) L 07/13/17 19:10 Ur Barbiturates Screen Negative (NEGATIVE) 07/13/17 20:27 Valproic Acid 26 ug/mL (50.0-100.0) L 07/22/17 05:20 Levetiracetam 13.3 mcg/mL 07/20/17 06:30 Ur Phencyclidine Scrn Negative (NEGATIVE) 07/13/17 20:27 Ur Amphetamines Screen Negative (NEGATIVE) 07/13/17 20:27 U Benzodiazepines Scrn Negative (NEGATIVE) 07/13/17 20:27 U Oth Cocaine Metabols Negative (NEGATIVE) 07/13/17 20:27 U Cannabinoids Screen Negative (NEGATIVE) 07/13/17 20:27 Alcohol, Quantitative < 10 mg/dL (0-10) 07/13/17 19:10 RPR Nonreactive (NONREACTIVE) 07/14/17 03:08 - Hospital Course Hospital Course: As per admission documentation 86 year old male, with a PMH of hypertension, vertigo, and cad, presents to the emergency department via EMS for AMS. Patient is altered and unable to answer questions, history taken from chart. According to EMS, patient was found on the floor with AMS. ED spoke with Mr. Isrrael Woody, who is listed as patient next of kin from previous admission and is a friend of the patient. He states that he talked to patient about 2 weeks ago, at that time patient was alert and oriented x 3. He does not know if patient had recent illness or psychiatric problems. Per previous records patient was alert and orient and spoke japanese. Unable to obtain ROS due to patient AMS Hospital Course Patient was admitted for altered mental status on 07/13. - Initial Head CT in ED showed Atrophy and small vessel disease, no bleed; age indeterminate, right frontal ischemic change new since the prior study. - Repeat Head CT w/o 07/18 - There is an acute or subacute infarct in the right frontal lobe measuring 3.5 cm in diameter. This has become more well-defined since the previous exam. - Repeat Head CT w/o 07/20 - The right frontal infarct seen previously is less well-defined on the current exam. Chronic microvascular changes are seen in the periventricular white matter. There is moderate atrophy - Repeat Head CT w/o 07/25 - No evidence of acute hemorrhage. 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 Marked dilatation 3rd and lateral ventricles with normal-appearing 4th ventricle in part due to ex vacuo dilatation related to white matter ischemic changes and central volume loss however the possibility of chronic compensated obstructive type hydrocephalus not excluded. Possibility of normal pressure hydrocephalus to be considered only if the clinical triad of dementia, ataxia and incontinence present. - Head and Neck CTA 07/20 - Right carotid.There is a long segment calcified plaque in the root right proximal internal carotid with a severe degree of stenosis measuring between 70 and 94 percent. Severe tortuosity - Left carotid. There is a calcified plaque in the left proximal internal carotid with a short-segment flap-like moderate stenosis measuring 50-69 percent. There is severe tortuosity Unremarkable CT Angiography of the Brain Neurology, Dr. Alfred, was consulted. An MRI was ordered to follow up initial CT but patient was unable to tolerate procedure so repeat CTs were ordered instead. Patient was started on Keppra. Patient needed to switched to Depakote sprinkles because he was playing with medications in his mouth instead of swallowing them. Patient had no difficulty with swallowing but just would keep all medications in his mouth and play with pills. Interventional Neurology, Dr. Lockett, was consulted for carotid stenosis. Recommended patient to be started on plavix in addition to aspirin, which neuro agreed with, and patient was started on medication. No other intervention at this time. Patient is to follow up with as outpatient. Cardiology, Dr. Crump, was consulted. Trop neg x 3. ECHO ordered which was unremarkable. Patient was also found to be dehydrated and was initially treated with IV fluids. He was quickly transitioned to a heart healthy diet (bite size/thin liquids) which patient tolerated and IV fluids were discontinued. Patient needed assistance with all meals. Blood Cultures were normal and patient was afebrile throughout his stay. Patient was stable throughout his hospital course but was only able to repeat phrases spoken to him. He was unable to do any tasks for himself. Patient was seen by PT who stated patient need assistance with movements and was unable to follow commands. It was found that patient lived alone and had no family to act as a healthcare proxy. Multiple family members (in [place] and [place]) were contacted but all refused to make any decisions/did not want any responsibility. Patient had friends at bedside that were willing to act as healthcare proxies in the patient's best interest. Patient was accepted to [facility] for ELIJAH with transition to care home care. Patient was accepted and transferred on 07/27. Discharge Instructions Patient is to be discharged to [facility] for Sub-Acute Rehab then transitioned to care home care. Patient is to take his medications as directed. Patient is to follow up with Dr. Zeb Lockett (Interventional Neurology) upon discharge. Please call and schedule appointment [phone]. - Located at [address], [address], [place] [address] Patient is to follow up with Dr. Nesbitt (Neurology) upon discharge. Please call and schedule an appointment [phone]. - Located at [facility] [address], [place] [address] Patient is to follow up with Dr. Crump (Cardiology) upon discharge. Please call and schedule an appointment with [facility] [phone]. - Located at [address], [place] [address] If patient experiences any new or concerning symptoms, please go directly to the nearest emergency room. Take care and be well. This is just a brief summary of the patient's hospital course. Please see EMR for complete detail. Discharge Exam - Head Exam Head Exam: ATRAUMATIC, NORMOCEPHALIC - Eye Exam Eye Exam: EOMI, Normal appearance Pupil Exam: NORMAL ACCOMODATION - ENT Exam ENT Exam: Mucous Membranes Moist - Respiratory Exam Respiratory Exam: Clear to PA & Lateral, NORMAL BREATHING PATTERN, UNREMARKABLE. absent: Accessory Muscle Use, Rales, Rhonchi, Wheezes, Respiratory Distress - Cardiovascular Exam Cardiovascular Exam: REGULAR RHYTHM, +S1, +S2 - GI/Abdominal Exam GI & Abdominal Exam: Normal Bowel Sounds, Soft, Unremarkable. absent: Distended , Firm, Guarding, Rigid, Tenderness - Extremities Exam Extremities exam: normal inspection, pedal pulses present - Neurological Exam Neurological exam: Alert, Altered (only able to repeat phrases spoken to him) - Psychiatric Exam Psychiatric exam: Flat Affect (baseline) - Skin Skin Exam: Dry, Warm Discharge Plan - Follow Up Plan Condition: STABLE Disposition: TRANSF TO SNF Instructions: Pneumonia in Adults, Stroke (DC), Risk Factors for Stroke, Altered Mental Status (GEN) Additional Instructions: Patient is to be discharged to [facility] for Sub-Acute Rehab then transitioned to [facility]. Patient is to take his medications as directed. Patient is to follow up with Dr. Zeb Lockett (Interventional Neurology) upon discharge. Please call and schedule appointment [phone]. - Located at [address], [address], [place] [address] Patient is to follow up with Dr. Nesbitt (Neurology) upon discharge. Please call and schedule an appointment [phone]. - Located at [facility] [address], [place] [address] Patient is to follow up with Dr. Crump (Cardiology) upon discharge. Please call and schedule an appointment with [facility] [phone]. - Located at [address], [place] [address] If patient experiences any new or concerning symptoms, please go directly to the nearest emergency room. Take care and be well. Referrals: Kory Crump MD [Staff Provider] - Philip Nesbitt MD [Staff Provider] - Manav Ortiz MD [Primary Care Provider] - Zeb Lockett MD [Medical Doctor] - Clinical Quality Measures - CQM - Stroke Antithrombotic Prescribed: Medical Contraindication Present Contranindication/Reason for not providing: Risk for Falling Anticoagulation Prescribed for Atrial Flutter, Atrial Fibrillation and History of:: Medical Contraindication Present Contranindication/Reason for not providing: Risk for Falling Statin prescribed: Yes <Main Obando - Last Filed: 07/28/17 15:01> Provider - Provider Date of Admission: 07/13/17 21:02 Attending physician: Main Obando MD Primary care physician: Manav Ortiz MD Hospital Course - Lab Results Lab Results: Most Recent Lab Values WBC 9.3 10^3/ul (4.5-11.0) 07/25/17 06:00 RBC 5.21 10^6/uL (3.5-6.1) 07/25/17 06:00 Hgb 15.1 g/dL (14.0-18.0) 07/25/17 06:00 Hct 45.4 % (42.0-52.0) 07/25/17 06:00 MCV 87.1 fl (80.0-105.0) 07/25/17 06:00 MCH 29.0 pg (25.0-35.0) 07/25/17 06:00 MCHC 33.3 g/dl (31.0-37.0) 07/25/17 06:00 RDW 13.1 % (11.5-14.5) 07/25/17 06:00 Plt Count 311 10^3/uL (120.0-450.0) 07/25/17 06:00 MPV 10.1 fl (7.0-11.0) 07/25/17 06:00 Gran % 69.0 % (50.0-68.0) H 07/25/17 06:00 Lymph % (Auto) 17.5 % (22.0-35.0) L 07/25/17 06:00 [place] % (Auto) 11.0 % (1.0-6.0) H 07/25/17 06:00 Eos % (Auto) 2.3 % (1.5-5.0) 07/25/17 06:00 Baso % (Auto) 0.2 % (0.0-3.0) 07/25/17 06:00 Gran # 6.40 (1.4-6.5) 07/25/17 06:00 Lymph # (Auto) 1.6 (1.2-3.4) 07/25/17 06:00 [place] # (Auto) 1.0 (0.1-0.6) H 07/25/17 06:00 Eos # (Auto) 0.2 (0.0-0.7) 07/25/17 06:00 Baso # (Auto) 0.02 K/mm3 (0.0-2.0) 07/25/17 06:00 PT 12.7 SECONDS (9.4-12.5) H 07/13/17 19:10 INR 1.11 (0.93-1.08) H 07/13/17 19:10 APTT 32.8 Seconds (25.1-36.5) 07/13/17 19:10 pO2 36 mm/Hg (30-55) 07/13/17 20: VBG pH 7.35 (7.32-7.43) 07/13/17: VBG pCO2 51.0 (40-60) 07/13/17 20: VBG HCO3 28.2 mmol/l (21-28) H 07/13/17 20: VBG Total CO2 29.8 mmol.L (22-28) H 07/13/17: VBG O2 Sat (Calc) 69.8 % (40-65) H 07/13/17: VBG Base Excess 1.7 mmol/L (0.0-2.0) 07/13/17: VBG Potassium 4.8 mmol/L (3.6-5.2) 07/13/17: Sodium 137.0 mmol/L (132-148) 07/13/17: Chloride 102.0 mmol/L (98-107) 07/13/17: Glucose 107 mg/dl (75-110) 07/13/17 20: Lactate 1.4 mmol/L (0.7-2.1) 07/13/17: FiO2 21.0 % 07/13/17: Sodium 143 mmol/L (132-148) 07/25/17 06:00 Potassium 4.3 mmol/L (3.6-5.0) 07/25/17 06:00 Chloride 103 mmol/L (98-107) 07/25/17 06:00 Carbon Dioxide 30 mmol/L (21-33) 07/25/17 06:00 Anion Gap 15 (10-20) 07/25/17 06:00 BUN 18 mg/dL (7-21) 07/25/17 06:00 Creatinine 0.7 mg/dl (0.8-1.5) L 07/25/17 06:00 Est GFR ( Amer) > 60 07/25/17 06:00 Est GFR (Non-Af Amer) > 60 07/25/17 06:00 POC Glucose (mg/dL) 84 mg/dL (65-110) 07/16/17 00:45 Random Glucose 89 mg/dL (70-110) 07/25/17 06:00 Calcium 9.0 mg/dL (8.4-10.5) 07/25/17 06:00 Phosphorus 3.7 mg/dL (2.5-4.5) 07/13/17 19:10 Magnesium 2.6 mg/dL (1.7-2.2) H 07/13/17 19:10 Total Bilirubin 0.8 mg/dL (0.2-1.3) 07/25/17 06:00 AST 42 U/L (17-59) 07/25/17 06:00 ALT 39 U/L (7-56) 07/25/17 06:00 Alkaline Phosphatase 164 U/L (38-126) H D 07/25/17 06:00 Ammonia < 9 umol/L (9-33) L 07/14/17 01:30 Lactate Dehydrogenase 429 U/L (333-699) 07/13/17 20:46 Total Creatine Kinase 57 U/L (35-230) 07/13/17 20:46 Troponin I 0.01 ng/mL 07/14/17 10:00 Total Protein 6.4 g/dL (5.8-8.3) 07/25/17 06:00 Albumin 3.2 g/dL (3.0-4.8) 07/25/17 06:00 Globulin 3.2 gm/dL 07/25/17 06:00 Albumin/Globulin Ratio 1.0 (1.1-1.8) L 07/25/17 06:00 Triglycerides 117 mg/dL (35-160) 07/14/17 03:08 Cholesterol 143 mg/dL (130-200) 07/14/17 03:08 LDL Cholesterol Direct 79 mg/dL (0-129) 07/14/17 03:08 HDL Cholesterol 39 mg/dL (29-60) 07/14/17 03:08 Free T4 1.24 ng/dL (0.78-2.19) 07/14/17 03:08 Total T3 0.83 ng/mL (0.97-1.69) L 07/14/17 03:08 TSH 3rd Generation 5.15 mIU/mL (0.46-4.68) H 07/14/17 03:08 Venous Blood Potassium 4.8 mmol/L (3.6-5.2) 07/13/17 20:27 Urine Color Yellow (YELLOW) 07/13/17 20:29 Urine Appearance Clear (CLEAR) 07/13/17 20: Urine pH 6.0 (4.7-8.0) 07/13/17 20: Ur Specific [place] >= 1.030 (1.005-1.035) 07/13/17 20:29 Urine Protein Trace mg/dL (<30 mg/dL) H 07/13/17 20:29 Urine Glucose (UA) Negative mg/dL (NEGATIVE) 07/13/17 20: Urine Ketones 40 mg/dL (NEGATIVE) H 07/13/17 20:29 Urine Blood Trace-intact (NEGATIVE) H 07/13/17 20: Urine Nitrate Negative (NEGATIVE) 07/13/17 20: Urine Bilirubin Small (NEGATIVE) H 07/13/17 20: Urine Urobilinogen 1.0 E.U./dL (<1 E.U./dL) H 07/13/17 20:29 Ur Leukocyte Esterase Negative Francheska/uL (NEGATIVE) 07/13/17 20: Urine RBC 1 - 3 /hpf (0-2) 07/13/17 20:29 Urine WBC 2 - 5 /hpf (0-6) 07/13/17 20:29 Ur Epithelial Cells 4 - 5 /hpf (0-5) 07/13/17 20:29 Urine Bacteria Few (NEG) 07/13/17 20: Salicylates < 1 mg/dL (2.0-20.0) L 07/13/17 19:10 Urine Opiates Screen Negative (NEGATIVE) 07/13/17 20: Urine Methadone Screen Negative (NEGATIVE) 07/13/17 20: Acetaminophen < 10.0 ug/ml (10.0-20.0) L 07/13/17 19:10 Ur Barbiturates Screen Negative (NEGATIVE) 07/13/17 20: Valproic Acid 26 ug/mL (50.0-100.0) L 07/22/17 05:20 Levetiracetam 13.3 mcg/mL 07/20/17 06:30 Ur Phencyclidine Scrn Negative (NEGATIVE) 07/13/17 20: Ur Amphetamines Screen Negative (NEGATIVE) 07/13/17 20: U Benzodiazepines Scrn Negative (NEGATIVE) 07/13/17 20:27 U Oth Cocaine Metabols Negative (NEGATIVE) 07/13/17 20:27 U Cannabinoids Screen Negative (NEGATIVE) 07/13/17 20:27 Alcohol, Quantitative < 10 mg/dL (0-10) 07/13/17 19:10 RPR Nonreactive (NONREACTIVE) 07/14/17 03:08 Attending/Attestation - Attestation I have personally seen and examined this patient.: Yes I have fully participated in the care of the patient.: Yes I have reviewed all pertinent clinical information, including history, physical exam and plan: Yes Notes (Text): 07/28/17 15:01 Attending note; Patient seen and examined with resident. Patient is alert and awake. feeding with assistance. Not in any acute distress. Moves all extremities. Patient is a 86 year old male with past medical history of CVA and possible dementia who presented with altered mental status. CT head showed old lacunar infarct with new ischemic changes in the frontal lobe. MRI was ordered, however could not be done due to patient agitation. CT head was repeated earlier this week which showed acute right CVA in frontal lobe. Continue with aspirin and statin. Neurology evaluation appreciated. Repeat CT head showed no acute changes. Started on Plavix as per neurology. Neurointervention evaluation appreciated. PT recommended ELIJAH. Patient will be transferred to subacute rehabilitation today. Case discussed with returned case inspector for discharge planning.
[2017-07-27 15:43] VITALS: BP 138/80; PULSE 71; TEMP 97.5; O2SAT 94
== END 2017-07-27 16:00 | DRG 65 ==
LOC: ED 18:03 → ERH 21:02 → 2RSO 23:59 → 5RNO 07-15 00:49 → 2RNO 07-19 18:44 → 5RSO 07-22 14:19
PROVIDERS: ADMIT Internal Medicine; ATTEND Internal Medicine
DX: I63.9 Cerebral infarction, unspecified (principal); I48.92 Unspecified atrial flutter; E86.0 Dehydration; I25.10 Atherosclerotic heart disease of native coronary artery without angina pectoris; K21.9 Gastro-esophageal reflux disease without esophagitis; I71.4 Abdominal aortic aneurysm, without rupture; I10 Essential (primary) hypertension; F03.90 Unspecified dementia, unspecified severity, without behavioral disturbance, psychotic disturbance, mood disturbance, and anxiety; I65.21 Occlusion and stenosis of right carotid artery; E03.9 Hypothyroidism, unspecified; R48.8 Other symbolic dysfunctions; Z91.81 History of falling; Z87.891 Personal history of nicotine dependence